=== PATIENT | male | born 1970 | race Caucasian/White ===

== ENCOUNTER 2017-10-10 00:05 | Emergency (ER) | payer MEDICAID ==
[2017-10-10 00:15] VITALS: RESP 16
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
[2017-10-10 01:31] VITALS: BP 148/80; PULSE 85; TEMP 98.3
== END 2017-10-10 01:30 | disposition home or self-care (01) ==
LOC: EC 00:05
DX: T16.2XXA Foreign body in left ear, initial encounter (principal); Z87.891 Personal history of nicotine dependence; Y93.55 Activity, bike riding
CPT/HCPCS: 69200; 99282

== ENCOUNTER 2017-10-25 03:11 | Inpatient (IN) | payer MEDICAID ==
[2017-10-25] MEDS ORDERED: NITROGLYCERIN SL TABS 0.4 MG TAB SUBLINGUAL PRN ×2 (03:14→04:47)
[2017-10-25] MEDS ORDERED: ATORVASTATIN 80 MG TAB PO STA (03:21)
[2017-10-25] MEDS ORDERED: MORPHINE SULFATE 2 MG/ML SYRINGE IVP STA (03:21)
[2017-10-25] MEDS ORDERED: HEPARIN SODIUM,PORCINE 5,000 UNIT/ML 1 ML VIAL IV PRN (03:26)
[2017-10-25] MEDS ORDERED: HEPARIN SODIUM,PORCINE 5,000 UNIT/ML 1 ML VIAL IV ONE (03:26)
[2017-10-25 03:30] LABS: Glucose,Whole Blood 121 mg/dL (75-99)
[2017-10-25 03:32] LABS: Basophils # (A) 0.1 k/uL (0-0.2); Basophils % (A) 1 %; Eosinophils # (A) 0.3 k/uL (0-0.7); Eosinophils % (A) 3 %; HCT 42.4 % (39.0-53.0); HGB 14.9 gm/dL (13.0-17.5); Lymphocytes # (A) 3.4 k/uL (1.0-4.8); Lymphocytes % (A) 29 %; MCH 32.2 pg (25.0-35.0); MCHC 35.1 g/dL (31.0-37.0); MCV 91.6 fL (80.0-100.0); Mean Platelet Volume 7.2; Monocytes # (A) 0.4 k/uL (0-1.0); Monocytes % (A) 4 %; Neutrophils # (A) 7.1 k/uL (1.3-7.7); Neutrophils % (A) 61 %; Platelet Count 273 k/uL (150-450); RBC 4.62 m/uL (4.30-5.90); RDW 14.1 % (11.5-15.5); WBC 11.5 k/uL (3.8-10.6)
--- NOTE | 2017-10-25 03:32 | ED ---
Chest Pain HPI - General Chief Complaint: Chest Pain Stated Complaint: stemi Time Seen by Provider: 10/25/17 03:14 Source: patient, family, EMS Mode of arrival: EMS Limitations: no limitations - History of Present Illness Initial Comments: This patient is a 47-year-old man brought by ambulance to be evaluated for chest pain. The patient was watching television between 12:30 and 1 AM today when he had onset of pain just left of the sternal area. Describes it as dull kind of aching or heavy. The pain is constant, moderate intensity now, but it was severe. The patient states that it did improve after receiving nitroglycerin from EMS. The patient has not noted other worsening or relieving factors. There has been some associated dyspnea. The patient did take a full size aspirin. The patient denies previous cardiac history. He did quit smoking approximately 2-3 months ago. MD Complaint: chest pain -: hour(s) (3) Onset: during rest Pain Location: left chest Pain Radiation: none Severity: moderate Quality: aching Consistency: constant Improves With: nitroglycerin Worsens With: nothing Anginal Symptoms: dyspnea Treatments Prior to Arrival: aspirin, nitroglycerin, oxygen - Related Data Previous Rx's Medication Instructions Recorded Ciprofloxacin Ophth Soln [Cipro 10 drops LEFT EAR BID #1 bottle 10/10/17 Ophth Soln] Allergies Allergy/AdvReac Type Severity Reaction Status Date / Time No Known Allergies Allergy Verified 10/10/17 01:03 Review of Systems ROS Statement: Those systems with pertinent positive or pertinent negative responses have been documented in the HPI. ROS Other: All systems not noted in ROS Statement are negative. Constitutional: Denies: fever, chills Respiratory: Reports: as per HPI, dyspnea. Denies: cough, wheezes Cardiovascular: Reports: chest pain. Denies: palpitations, orthopnea, edema, syncope Gastrointestinal: Reports: nausea. Denies: abdominal pain, vomiting, diarrhea, constipation Genitourinary: Denies: dysuria, hematuria Musculoskeletal: Denies: back pain Skin: Denies: rash Neurological: Denies: headache Hematological/Lymphatic: Denies: easy bleeding EKG Findings - EKG Comments: EKG Findings:: There are inferior ST elevations, consistent with an acute ST elevation MD. There are lateral ST depressions. ST depressions in lead V2. - EKG Results: EKG: interpreted by JEFF, sinus rhythm (Rate approximate 74 bpm), normal axis - MD, Pacemaker, Normal: Myocardial infarction: inferior MD (old age indeterminate) (There are inferior ST elevations, consistent with an acute ST elevation MD.) Past Medical History Past Medical History: No Reported History History of Any Multi-Drug Resistant Organisms: None Reported Past Surgical History: No Surgical Hx Reported Past Psychological History: No Psychological Hx Reported Smoking Status: Former smoker Past Alcohol Use History: None Reported Past Drug Use History: None Reported General Exam Limitations: no limitations General appearance: alert, in distress Head exam: Present: atraumatic, normocephalic Eye exam: Present: normal appearance. Absent: scleral icterus, conjunctival injection ENT exam: Present: normal oropharynx Neck exam: Present: normal inspection Respiratory exam: Present: normal lung sounds bilaterally. Absent: respiratory distress, wheezes, rales, rhonchi, stridor, chest wall tenderness Cardiovascular Exam: Present: regular rate, normal rhythm, normal heart sounds. Absent: systolic murmur, diastolic murmur, rubs, gallop GI/Abdominal exam: Present: soft. Absent: distended, tenderness, guarding, rebound, rigid, mass Extremities exam: Present: normal inspection, normal capillary refill. Absent: pedal edema, calf tenderness Back exam: Present: normal inspection. Absent: CVA tenderness (R), CVA tenderness (L) Neurological exam: Present: alert Skin exam: Present: warm, dry, intact, normal color. Absent: rash Course Vital Signs 10/25/17 10/25/17 10/25/17 03:14 03:19 03:33 Temperature 98.7 F Pulse Rate 74 73 74 Respiratory 18 18 18 Rate Blood Pressure 137/77 135/82 141/76 O2 Sat by Pulse 100 100 99 Oximetry 10/25/17 03:47 Temperature Pulse Rate 77 Respiratory 21 Rate Blood Pressure 141/78 O2 Sat by Pulse 98 Oximetry - Reevaluation(s) Reevaluation #1: 10/25/17 03:32 We did receive a telemetry ECG from EMS, and when they sent this, we did activate the [facility]. I discussed case with cardiology and they'll take patient to the [facility]. On arrival his EKG does confirm that there is a STEMI. History and physical exam performed. Orders entered. Critical Care Time Critical Care Time: Yes (35 minutes) Disposition Clinical Impression: ST elevation myocardial infarction (STEMI) Disposition: ADMITTED IP TO THIS HOSP Condition: Serious Is patient prescribed a controlled substance at d/c from ED?: No
--- NOTE | 2017-10-25 03:33 | XR ---
EXAMINATION TYPE: XR chest 1V portable DATE OF EXAM: 10/25/2017 COMPARISON: NONE HISTORY: Chest pain TECHNIQUE: Single frontal view of the chest is obtained. FINDINGS: Heart and mediastinum are normal. Lungs are clear. Diaphragm is normal. There are chest le ads. Bony thorax is intact. There are small calcified granulomata. IMPRESSION: No active cardiopulmonary disease. Normal heart.
[2017-10-25 03:35] LABS: Partial Thromboplastin Time 22.5 sec (22.0-30.0); Prothrombin Time 10.1 sec (9.0-12.0)
[2017-10-25 03:39] LABS: Anion Gap 14 mmol/L; Calcium 9.1 mg/dL (8.4-10.2); Carbon Dioxide 21 mmol/L (22-30); Chloride 105 mmol/L (98-107); Glucose 134 mg/dL (74-99); Sodium 140 mmol/L (137-145); Total Bilirubin 0.5 mg/dL (0.2-1.3); Total Protein 6.5 g/dL (6.3-8.2)
[2017-10-25] MEDS ORDERED: HEPARIN SODIUM 1,000 UN/ML (10ML VL) ONE (03:39)
[2017-10-25] MEDS ORDERED: IV FLUID CONTINUATION 200 ML IV ONE (03:40)
[2017-10-25 03:41] LABS: ALT 36 U/L (21-72); AST 27 U/L (17-59); Alkaline Phosphatase 67 U/L (38-126); Blood Urea Nitrogen 14 mg/dL (9-20); Potassium 4.2 mmol/L (3.5-5.1)
--- NOTE | 2017-10-25 03:41 | P.CRDCN ---
History of Present Illness Consult date: 10/25/17 History of present illness: This is a 47-year-old gentleman with history of smoking who was brought in by EMS to the emergency room with complaints of chest pain with some radiation to the back And also to the arms. His EKG showed evidence of acute inferior wall MA. Patient is having mild chest pain and the time of my evaluation. Patient is being taken to the cath for cardiac catheterization with the intention of primary intervention Review of Systems Not obtained Past Medical History Past Medical History: No Reported History History of Any Multi-Drug Resistant Organisms: None Reported Past Surgical History: No Surgical Hx Reported Past Psychological History: No Psychological Hx Reported Smoking Status: Former smoker Past Alcohol Use History: None Reported Past Drug Use History: None Reported Medications and Allergies Home Medications Medication Instructions Recorded Confirmed Type Ciprofloxacin Ophth Soln [Cipro 10 drops LEFT EAR BID #1 bottle 10/10/17 Rx Ophth Soln] Allergies Allergy/AdvReac Type Severity Reaction Status Date / Time No Known Allergies Allergy Verified 10/10/17 01:03 Physical Exam Vitals: Vital Signs Temp Pulse Resp BP Pulse Ox 10/25/17 03:33 74 18 141/76 99 10/25/17 03:19 73 18 135/82 100 10/25/17 03:14 98.7 F 74 18 137/77 100 Intake and Output 10/24/17 10/24/17 10/25/17 14:59 22:59 06:59 Other: Weight 67.132 kg GENERAL EXAM: Patient is alert and oriented and doesn't appear to be in any acute distress HEENT: Normocephalic. Normal reaction of pupils, equal size, normal range of extraocular motion. No erythema or exudates in the throat. NECK: No masses, no nuchal rigidity. CHEST: No chest wall deformity. LUNGS: Equal air entry with no crackles or wheeze. HEART: S1 and S2 normal with no audible mumurs or gallops. Regular rhythm, femorals equal on both sides.. ABDOMEN: No hepatosplenomegaly, normal bowel sounds, no guarding or rigidity. SKIN: No rashes CENTRAL NERVOUS SYSTEM: No focal deficits. EXTREMITIES: No cyanosis, clubbing or edema. Results Current Medications Generic Name Dose Route Start Last Admin Trade Name Freq PRN Reason Stop Dose Admin Heparin Sodium (Porcine) 0 unit 10/25/17 03:26 Heparin IV PER PROTOCOL PRN Low PTT Protocol Heparin Sodium/Sodium Chloride 500 mls @ 16.11 mls/hr 10/25/17 03:30 25,000 unit/ Sodium Chloride IV .Q24H ROSANGELA Protocol 12 UNITS/KG/HR Nitroglycerin 0.4 mg 10/25/17 03:14 Nitrostat SUBLINGUAL Q5M PRN Chest Pain Intake and Output 10/24/17 10/24/17 10/25/17 14:59 22:59 06:59 Other: Weight 67.132 kg Patient Weight 10/25/17 06:59 Weight 67.132 kg EKG Interpretations (text) Sinus rhythm with acute inferior wall MA Assessment and Plan (1) Acute MA, inferior wall Current Visit: Yes Status: Acute Code(s): I21.19 - STEMI INVOLVING OTH CORONARY ARTERY OF INFERIOR WALL SNOMED Code(s): 51227491 Plan: Proceed with cardiac catheterization with the intention of primary intervention
[2017-10-25 03:48] LABS: Creatine Kinase 112 U/L (55-170)
[2017-10-25] MEDS ORDERED: MIDAZOLAM 2 MG/2 ML VIAL ONE (03:49)
[2017-10-25] MEDS ORDERED: fentaNYL (PF) 50 MCG/ML 2 ML AMP ONE (03:49)
[2017-10-25] MEDS ORDERED: LIDOCAINE 2% SYG (PF) 100 MG/5 ML MISCELLANE ONE (03:52)
[2017-10-25] MEDS ORDERED: MIDAZOLAM 2 MG/2 ML VIAL IV ONE (03:53)
[2017-10-25] MEDS ORDERED: fentaNYL (PF) 50 MCG/ML 2 ML AMP IV ONE (03:53)
[2017-10-25 04:01] LABS: Creatine Kinase MB 0.9 ng/mL (0.0-2.4); Troponin I <0.012 ng/mL (0.000-0.034)
[2017-10-25] MEDS ORDERED: BIVALIRUDIN BOLUS 250 MG/50 ML IV ONE (04:07)
[2017-10-25] MEDS ORDERED: METOPROLOL TARTRATE 5 MG/5 ML VIAL IVP ONE ×2 (04:07→04:08)
[2017-10-25] MEDS ORDERED: BIVALIRUDIN 250 MG in SODIUM CHLORIDE 0.9% 40 ML IV ONE (04:08)
[2017-10-25] MEDS ORDERED: SODIUM CHLORIDE 0.9% 1,000 ML IV ONE (04:20)
[2017-10-25] MEDS: NITROGLYCERIN 1000MCG/10ML SYRINGE INTRACORON ONE ×2 (04:21→04:27)
--- NOTE | 2017-10-25 04:21 | P.PCN ---
Date of Procedure: 10/25/17 Preoperative Diagnosis: Acute inferior wall CO Postoperative Diagnosis: Total occlusion of the RCA, significant distal left main extending into the LAD and circumflex Procedure(s) Performed: Left heart catheterization without left ventriculography Description of Procedure: HISTORY: This is a 47-year-old gentleman with history of smoking who was admitted to the hospital with acute inferior wall myocardial infarction. Patient is advised to have a cardiac catheterization with the intention of primary intervention. CONSENT:I have discussed the risks, benefits and alternative therapies for the above-mentioned procedure and for both sedation/analgesia as well as necessary blood product administration, if indicated, as they pertain to this patient. The patient has indicated understanding and acceptance of the risks and procedures discussed. [] PROCEDURE: Patient was brought to the lab in a fasting state. Patient was given some IV sedation. The right groin is infiltrated with lidocaine and right femoral artery was entered using Seldinger technique. A 6-Czech catheter was left in place and selective coronary arteriography was performed. Patient tolerated the procedure well. Femoral angiogram was performed . Patient went on to have stent placement of the RCA by Dr. Rush No immediate complications were noted and patient was transferred to [facility] in a stable condition Conscious Sedation: Versed 1mg Fentanyl 25 g Duration 16minutes HEMODYNAMICS: The aortic pressure is about 150/90. Left ankle end-diastolic pressure is 12. There was no gradient across the aortic valve SELECTIVE CORONARY ARTERIOGRAPHY: LEFT MAIN: 60% distal left main THE LEFT ANTERIOR DESCENDING CORONARY ARTERY: This is a moderate caliber vessel with about 70% ostial stenosis. Rest of the LAD is free of occlusive disease. THE LEFT CIRCUMFLEX AND IS CORONARY ARTERY: Moderate caliber vessel with a 60% ostial stenosis THE RIGHT CORONARY ARTERY: Total occluded distally LEFT VENTRICULOGRAPHY: Not performed FINAL IMPRESSION: Total occlusion of the RCA. 60% left main with 70% ostial LAD and also 60% ostial circumflex PLAN: Stent placement of the RCA. Patient would require bypass surgery for left main disease PROGNOSIS: Guarded
[2017-10-25] MEDS ORDERED: DOPamine DRIP 800 MG in DEXTROSE/WATER 1 500ML.BAG IV ONE (04:23)
[2017-10-25] MEDS ORDERED: CLOPIDOGREL 75 MG TAB ONE (04:34)
[2017-10-25] MEDS ORDERED: IOPAMIDOL-370 125ML BTL INJ ONE ×2 (04:38)
[2017-10-25] MEDS ORDERED: CLOPIDOGREL 75 MG TAB PO ONE (04:39)
[2017-10-25] MEDS ORDERED: MAG HYDROX/AL HYDROX/SIMETH 30 ML CUP ONE (04:46)
[2017-10-25] MEDS ORDERED: ZOLPIDEM 5 MG TAB PO PRN (04:47)
[2017-10-25] MEDS ORDERED: RX INFO: IV CONTRAST WAS GIVEN 1 EACH MISC MISCELLANE PRN (04:47)
[2017-10-25] MEDS ORDERED: MAG HYDROX/AL HYDROX/SIMETH 30 ML CUP PO PRN (04:47)
[2017-10-25] MEDS ORDERED: ATROPINE SULFATE 0.1 MG/ML 10ML SYRINGE IV PRN (04:47)
[2017-10-25] MEDS ORDERED: MAG HYDROX/AL HYDROX/SIMETH 30 ML CUP PO ONE (04:49)
[2017-10-25] MEDS ORDERED: SODIUM CHLORIDE 0.9% 1,000 ML IV SCH (05:00)
[2017-10-25 05:07] LABS: Glucose,Whole Blood 110 mg/dL (75-99)
[2017-10-25 06:15] VITALS: BMI 25.5
--- NOTE | 2017-10-25 07:17 | PTCA ---
PERCUTANEOUSTRANS CORORONARY ANGIOGRAPHY DATE OF SERVICE: 10/25/2017 PERFORMING PHYSICIAN: Harjit Parker MD, air hole driller. PROCEDURE PERFORMED: Successful stenting of the distal RCA using 2.75 x 15 mm Vision bare metal stent with good angiographic results. INDICATION: This is a pleasant 47-year-old gentleman with a significant history of smoking, who was brought to the hospital by ambulance with acute inferior ST-elevation myocardial infarction. He underwent a heart catheterization by Dr. Henning and was found to have acute total occlusion of the distal RCA with intermediate to severe disease involving the distal left main coronary artery. Because of that, I chose to place a bare metal stent because the patient might need to have open heart surgery soon. APPROACH: Right common femoral artery. COMPLICATION: None. LEVEL OF SEDATION: Moderate with sedation length of 23 minutes. PROCEDURE DESCRIPTION: After diagnostic heart catheterization was performed by Dr. Henning and after reviewing the angiogram, we decided to pursue with an intervention on the RCA. Anticoagulation was initiated using Angiomax. Subsequently I took JR4 guide and the RCA was engaged. A whisper wire was used to wire the right coronary artery and cross the acute total occlusion. After that I did balloon angioplasty using 2.0 x 12 mm balloon before I deployed 2.75 x 15 mm Vision bare metal stent where the stent was positioned under fluoroscopy guidance and deployed under 10 atmospheres for 15 seconds. The procedure was completed without any complication. POSTPROCEDURE MANAGEMENT: 1. Dual antiplatelet therapy. 2. Risk factor modifications. 3. Follow up with the patient. MMODL / VIRGILN: [id number] /
[2017-10-25] MEDS: HEPARIN SODIUM,PORCINE/D5W PMX 25,000 UNIT in DEXTROSE/WATER 1 500ML.BAG IV SCH (08:10)
[2017-10-25 08:11] LABS: Cholesterol 251 mg/dL (<200); HDL Cholesterol 40 mg/dL (40-60); LDL Cholesterol,Calculated 173 mg/dL (0-99); Triglycerides 189 mg/dL (<150)
[2017-10-25] MEDS: ASPIRIN 325 MG TAB PO SCH (08:21)
--- NOTE | 2017-10-25 11:30 | ECHOF ---
Referral Reason:stemi MEASUREMENTS -------- HEIGHT: 165.1 cm WEIGHT: 67.1 kg BP: 142/78 IVSd: 1.0 cm (0.6 - 1.1) LVIDd: 3.8 cm (3.9 - 5.3) LVPWd: 1.1 cm (0.6 - 1.1) IVSs: 1.5 cm LVIDs: 2.9 cm LVPWs: 1.2 cm LAESV Index (A-L): 14.93 ml/m Ao Diam: 3.0 cm (2.0 - 3.7) AV Cusp: 1.7 cm (1.5 - 2.6) LA Diam: 3.6 cm (2.7 - 3.8) MV EXCURSION: 19.783 mm (> 18.000) MV EF SLOPE: 188 mm/s (70 - 150) EPSS: 1.7 cm MV E Ion: 0.94 m/s MV DecT: 212 ms MV A Ion: 0.79 m/s MV E/A Ratio: 1.19 RAP: 5.00 mmHg RVSP: 12.99 mmHg FINDINGS -------- Sinus rhythm. This was a technically good study. The left ventricular size is normal. Left ventricular wall thickness is normal. Overall left vent ricular systolic function is mild-moderately impaired with, an EF between 40 - 45 %. Basal inferior LV wall motion is hypokinetic. Mid inferior LV wall motion is hypokinetic. Mid inferoseptal LV wall motion is hypokinetic. The right ventricle is normal in size and function. The left atrium is normal in size. The right atrium is normal in size. Aortic valve is trileaflet and is mildly thickened. The mitral valve leaflets are mildly thickened. There is trace mitral regurgitation. Trace tricuspid regurgitation present. The right ventricular systolic pressure, as measured by Dopp ler, is 12.99mmHg. Pulmonic valve appears structurally normal. The aortic root size is normal. The pericardium is normal. CONCLUSIONS -------- 1. Sinus rhythm. 2. This was a technically good study. 3. The left ventricular size is normal. 4. Left ventricular wall thickness is normal. 5. Overall left ventricular systolic function is mild-moderately impaired with, an EF between 40 - 45 %. 6. Basal inferior LV wall motion is hypokinetic. 7. Mid inferior LV wall motion is hypokinetic. 8. Mid inferoseptal LV wall motion is hypokinetic. 9. The right ventricle is normal in size and function. 10. The left atrium is normal in size. 11. The right atrium is normal in size. 12. Aortic valve is trileaflet and is mildly thickened. 13. The mitral valve leaflets are mildly thickened. 14. There is trace mitral regurgitation. 15. Trace tricuspid regurgitation present. 16. The right ventricular systolic pressure, as measured by Doppler, is 12.99mmHg. 17. Pulmonic valve appears structurally normal. 18. The aortic root size is normal. 19. The pericardium is normal. CHUCK TENDER: Adelaida Ernst RDCS
[2017-10-25] MEDS: METOPROLOL TARTRATE 12.5 MG TAB PO SCH ×2 (11:49→20:19)
[2017-10-25] MEDS: PANTOPRAZOLE 40 MG TABLET PO SCH (11:49)
--- NOTE | 2017-10-25 11:49 | P.HPIM ---
History of Present Illness H&P Date: 10/25/17 Chief Complaint: Chest pain. 47-year-old man brought by ambulance to be evaluated for chest pain. The patient was watching television between 12:30 and 1 AM today when he had onset of pain in the retrosternal area. Pain radiated to both of his arms, jaw and back. Described it as dull aching or heavy. The pain was constant, was severe when it started. Pain was associated with dizziness, diaphoresis and nausea. No vomiting. No shortness of breath. Patient has been having intermittent episodes of chest pain over the last several months but he did not seek medical attention for that. He normally does not follow up with any primary care physician. When he gets some physical through his job his blood pressure has always been found to be high but he did not take any medication for that. When EMS arrived patient was given some nitroglycerin and the pain felt better afterwards. The patient denies previous cardiac history. He did quit smoking approximately 2-3 months ago. Review of Systems 12 point review of system performed, negative except for HPI Past Medical History Past Medical History: Hyperlipidemia, Hypertension Additional Past Medical History / Comment(s): 10/25/2017 STEMI with Stent to RCA x1, family history of early onset coronary artery disease with his aunt passing away from a myocardial infarction at age 30. History of Any Multi-Drug Resistant Organisms: None Reported Past Surgical History: No Surgical Hx Reported Past Anesthesia/Blood Transfusion Reactions: No Reported Reaction Additional Past Anesthesia/Blood Transfusion Reaction / Comment(s): Denies surgical procedures so unable to comment on this Past Psychological History: No Psychological Hx Reported Smoking Status: Former smoker (Quit smoking 2-3 months ago.) Past Alcohol Use History: None Reported (No alcohol use in the past 30 years.) Past Drug Use History: None Reported - Past Family History Father Family Medical History: Cancer, Hypertension Additional Family Medical History / Comment(s): Lung CA, at age 63. Mother Family Medical History: COPD Additional Family Medical History / Comment(s): Past away at age 70 from severe COPD. Sister(s) Family Medical History: Hypertension, Thyroid Disorder Medications and Allergies Home Medications Medication Instructions Recorded Confirmed Type No Known Home Medications [No 10/25/17 10/25/17 History Known Home Medications] Allergies Allergy/AdvReac Type Severity Reaction Status Date / Time No Known Allergies Allergy Verified 10/25/17 07:48 Physical Exam Vitals: Vital Signs Temp Pulse Resp BP Pulse Ox 10/25/17 11:00 78 21 135/78 98 10/25/17 10:55 80 13 124/86 98 10/25/17 10:50 71 7 L 145/90 97 10/25/17 10:45 84 11 L 159/97 97 10/25/17 10:40 71 17 133/81 98 10/25/17 10:35 70 21 143/83 97 10/25/17 10:30 71 10 L 142/80 97 10/25/17 10:25 81 10 L 140/85 99 10/25/17 10:20 78 11 L 133/73 98 10/25/17 10:15 76 15 127/79 98 10/25/17 10:10 82 27 H 155/80 98 10/25/17 10:05 87 15 139/77 97 10/25/17 10:00 83 16 127/77 99 10/25/17 09:55 78 20 124/85 97 10/25/17 09:50 82 16 136/88 97 10/25/17 09:45 88 16 136/88 99 10/25/17 09:40 89 18 136/88 98 10/25/17 09:35 75 12 136/88 98 10/25/17 09:30 81 20 136/88 98 10/25/17 09:25 97 32 H 136/88 98 10/25/17 09:20 92 19 136/77 98 10/25/17 09:00 83 14 136/77 98 10/25/17 08:49 98 10/25/17 08:30 73 14 119/80 98 10/25/17 08:00 98.4 F 90 21 116/80 98 10/25/17 07:45 70 15 121/86 100 10/25/17 07:30 88 19 110/72 99 10/25/17 07:15 75 13 112/74 98 10/25/17 07:00 71 7 L 105/67 97 10/25/17 06:45 81 10 L 116/73 100 10/25/17 06:30 86 18 133/84 99 10/25/17 06:15 90 14 134/81 99 10/25/17 06:00 84 10 L 146/74 100 10/25/17 05:45 80 15 131/76 99 10/25/17 05:30 84 20 117/78 100 10/25/17 05:20 76 18 98 10/25/17 05:10 98.2 F 68 18 105/68 100 10/25/17 03:47 77 21 141/78 98 10/25/17 03:33 74 18 141/76 99 10/25/17 03:19 73 18 135/82 100 10/25/17 03:14 98.7 F 74 18 137/77 100 Intake and Output 10/24/17 10/25/17 10/25/17 22:59 06:59 14:59 Intake Total 604 500 Output Total 850 Balance 604 -350 Intake: IV 604 500 Sodium Chloride 0.9% 1, 100 500 000 ml @ 100 mls/hr IV . [facility] Rx#:[id number] Output: Urine 850 Other: Weight 69.7 kg 69.7 kg ABP, PAP, CO, CI - Last 8 Hours Arterial Blood Pressure 157/80 Arterial Blood Pressure 162/83 Arterial Blood Pressure 178/90 Arterial Blood Pressure 155/85 Arterial Blood Pressure 158/86 Arterial Blood Pressure 153/86 Arterial Blood Pressure 141/73 Arterial Blood Pressure 136/67 Arterial Blood Pressure 123/66 Arterial Blood Pressure 137/70 Arterial Blood Pressure 142/78 Arterial Blood Pressure 149/81 Arterial Blood Pressure 144/78 Arterial Blood Pressure 149/78 Arterial Blood Pressure 142/78 Arterial Blood Pressure 147/77 Arterial Blood Pressure 131/73 Constitutional: No acute distress, conversant, pleasant Eyes:Anicteric sclerae, moist conjunctiva, no lid-lag, PERRLA, ENMT: Oropharynx clear, no erythema, exudates Neck: Supple, FROM, no masses, or JVD, No carotid bruits, No thyromegaly Lungs: Clear to auscultation, Clear to percussion, Normal respiratory effort, no accessory muscle use Cardiovascular: Heart regular in rate and rhythm, No murmurs, gallops, or rubs, No peripheral edema Abdominal: Soft, Nontender, no guarding, rebound or rigidity, Normoactive bowel sounds, No hepatomegaly, No splenomegaly, No palpable mass Skin: Normal temperature, tone, texture, turgor, no induration, No subcutaneous nodules, No rash, lesions, No ulcers Extremities: No digital cyanosis, No clubbing, Pedal pulses intact and symmetrical, Radial pulses intact and symmetrical, No calf tenderness Psychiatric: Alert and oriented to person, place and time, appropriate affect, intact judgement Neuro: Muscles Strength 5/5 in all 4 extremities, Sensation to light touch grossly present throughout, Cranial nerves II-XII grossly intact, no focal sensory deficits Results CBC & Chem 7: 18 03:15 10/25/17 03:15 Labs: Abnormal Lab Results - Last 24 Hours (Table) 10/25/17 10/25/17 10/25/17 Range/Units 03:15 03:15 03:15 WBC 11.5 H (3.8-10.6) k/uL Carbon Dioxide 21 L (22-30) mmol/L Glucose 134 H (74-99) mg/dL POC Glucose (mg/dL) (75-99) mg/dL Triglycerides 189 H (<150) mg/dL Cholesterol 251 H (<200) mg/dL LDL Cholesterol, Calc 173 H (0-99) mg/dL 10/25/17 10/25/17 Range/Units 03:19 05:05 WBC (3.8-10.6) k/uL Carbon Dioxide (22-30) mmol/L Glucose (74-99) mg/dL POC Glucose (mg/dL) 121 H 110 H (75-99) mg/dL Triglycerides (<150) mg/dL Cholesterol (<200) mg/dL LDL Cholesterol, Calc (0-99) mg/dL Thrombosis Risk Factor Assmnt - Choose All That Apply Any of the Below Risk Factors Present?: Yes Each Factor Represents 1 point: Acute ME Thrombosis Risk Factor Assessment Total Risk Factor Score: 1 Thrombosis Risk Factor Assessment Level: Low Risk Assessment and Plan Plan: Acute ST elevation myocardial infarction Status post heart catheterization, with stenting of the RCA. Tape Sewer recommending bypass surgery which is already scheduled in 4 weeks from now Start screening workup No further chest pain. Start aspirin, Plavix, metoprolol and statin Health maintenance No history of diabetes, we'll check A1c Lipid profile checked, LDL is elevated, statin started Nutrition consulted for low fat diet Monitor blood pressure on metoprolol, currently stable DVT prophylaxis Early mobilization, ambulatory, low risk Anticipated discharge: 2 days Disposition: Likely home
[2017-10-25 12:31] LABS: Magnesium 2.1 mg/dL (1.6-2.3)
--- NOTE | 2017-10-25 13:53 | US ---
EXAMINATION TYPE: US carotid duplex BILAT DATE OF EXAM: 10/25/2017 COMPARISON: NONE CLINICAL HISTORY: Preop cardiac surgery. EXAM MEASUREMENTS: RIGHT: Peak Systolic Velocity (PSV) cm/sec ----- Right CCA: 91.5 ----- Right ICA: 98.4 ----- Right ECA: 118.5 ICA/CCA ratio: 1.1 RIGHT: End Diastole cm/sec ----- Right CCA: 27.5 ----- Right ICA: 37.9 ----- Right ECA: 30.5 LEFT: Peak Systolic Velocity (PSV) cm/sec ----- Left CCA: 96.5 ----- Left ICA: 110.7 ----- Left ECA: 197.3 ICA/CCA ratio: 1.1 LEFT: End Diastole cm/sec ----- Left CCA: 31.1 ----- Left ICA: 44.5 ----- Left ECA: 53.2 VERTEBRALS (direction of flow): Right Vertebral: Antegrade Left Vertebral: Antegrade Rhythm: Normal Mild velocity increase in left ECA, no significant stenosis seen in bilateral ICA's. IMPRESSION: Moderate amount of grayscale atheromatous plaquing within the left carotid bulb without hemodynamically significant stenosis in the bilateral common carotid arteries, carotid bulbs or inter nal carotid arteries. Stenosis of the left external carotid artery is incidentally identified of appr oximately 50%.
[2017-10-25 14:20] LABS: Appearance,Urine Clear (Clear); Bilirubin,Urine Negative (Negative); Blood,Urine Negative (Negative); Color,Urine Light Yellow; Glucose,Urine (UA) Negative (Negative); Ketones,Urine Negative (Negative); Leukocyte Esterase,Urine Negative (Negative); Nitrite,Urine Negative (Negative); Protein,Urine Negative (Negative); Specific Gravity,Urine 1.013 (1.001-1.035); Urobilinogen,Urine <2.0 mg/dL (<2.0)
--- NOTE | 2017-10-25 14:44 | P.PN ---
Progress Note - Text Progress Note Date: 10/25/17 Report of pulmonary function test Pulmonary function tests show some minimal/mild obstruction. Based on numbers, the patient said no increased operative risk for anticipated bypass grafting in the near future.
--- NOTE | 2017-10-25 14:54 | P.CNPUL ---
History of Present Illness Consult date: 10/25/17 Requesting physician: Aidtya Brown Reason for consult: chest pain, other Chief complaint: Acute ST elevated [place] History of present illness: Mr. Cruz is a 47-year-old white male patient presented to the emergency department on 10/25/2017 at 03 11 per EMS complaints of acute substernal chest pain, heaviness in bilateral arms. The onset of symptoms was not brought on by exertion, he was watching television between 12:30 and 1:00 in the morning at the time his sternal discomfort started. He described it as aching, happy, and stinging. The pain was constant, moderate in intensity, and was exacerbated by laying down. Patient was administered nitroglycerin from EMS with some improvement. Patient was also dyspneic, and had heartburn. Patient does not have any previous cardiac history, does not follow with a primary care physician , does have history of nicotine dependence, he quit smoking to 3 months ago, but prior to that smoked 1-1-1/2 packs a day for 34 years. History of any chronic lung condition. He is not on any prescription medications. 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 EKG showed acute elevation ST segment in the inferior leads consistent with acute inferior wall AZ. Patient was taken to the poultry hatchery laborer, for primary intervention. He was found to have acute total occlusion of the distal RCA with intermediate to severe disease involving the distal left main coronary artery. Patient underwent successful stenting of the distal RCA, he was started on dual antiplatelet therapy in the form of Plavix and aspirin. Patient returned to the intensive care units for further monitoring. Cardiothoracic surgery was consulted to evaluate the patient for coronary artery bypass grafting in view of moderate to severe left main disease. Echocardiogram was completed impaired left ventricular systolic function with an EF between 40-45%, trace mitral and trace tricuspid regurgitation, no pulmonary hypertension, right ventricular systolic pressure is 12.9 mmHg. Was mild inferior, basal and mid inferior septal LV wall motion hypokinesis. Patient has been evaluated by cardiothoracic surgery, and and he will be scheduled for coronary artery bypass grafting in 4 weeks. Was seeing this patient in consultation for pulmonary preoperative clearance. Review of Systems All systems: negative Constitutional: Denies chills, Denies fever Eyes: denies blurred vision, denies pain Ears, nose, mouth and throat: Denies headache, Denies sore throat Cardiovascular: Reports chest pain, Denies shortness of breath Respiratory: Denies cough Gastrointestinal: Denies abdominal pain, Denies diarrhea, Denies nausea, Denies vomiting Musculoskeletal: Denies myalgias Integumentary: Denies pruritus, Denies rash Neurological: Denies numbness, Denies weakness Psychiatric: Denies anxiety, Denies depression Endocrine: Denies fatigue, Denies weight change Past Medical History Past Medical History: Hyperlipidemia, Hypertension Additional Past Medical History / Comment(s): 10/25/2017 STEMI with Stent to RCA x1, family history of early onset coronary artery disease with his aunt passing away from a myocardial infarction at age 30. History of Any Multi-Drug Resistant Organisms: None Reported Past Surgical History: No Surgical Hx Reported Past Anesthesia/Blood Transfusion Reactions: No Reported Reaction Additional Past Anesthesia/Blood Transfusion Reaction / Comment(s): Denies surgical procedures so unable to comment on this Past Psychological History: No Psychological Hx Reported Smoking Status: Former smoker (Quit smoking 2-3 months ago.) Past Alcohol Use History: None Reported (No alcohol use in the past 30 years.) Past Drug Use History: None Reported - Past Family History Father Family Medical History: Cancer, Hypertension Additional Family Medical History / Comment(s): Lung CA, at age 63. Mother Family Medical History: COPD Additional Family Medical History / Comment(s): Past away at age 70 from severe COPD. Sister(s) Family Medical History: Hypertension, Thyroid Disorder Medications and Allergies Home Medications Medication Instructions Recorded Confirmed Type No Known Home Medications [No 10/25/17 10/25/17 History Known Home Medications] Allergies Allergy/AdvReac Type Severity Reaction Status Date / Time No Known Allergies Allergy Verified 10/25/17 07:48 Physical Exam Vitals: Vital Signs Temp Pulse Resp BP Pulse Ox 10/25/17 14:00 70 14 118/66 97 10/25/17 13:30 70 18 118/70 96 10/25/17 13:00 97 22 128/82 97 10/25/17 12:30 72 18 130/87 97 10/25/17 12:00 77 15 129/87 98 10/25/17 11:30 72 11 L 121/79 98 10/25/17 11:00 78 21 135/78 98 10/25/17 10:55 80 13 124/86 98 10/25/17 10:50 71 7 L 145/90 97 10/25/17 10:45 84 11 L 159/97 97 10/25/17 10:40 71 17 133/81 98 10/25/17 10:35 70 21 143/83 97 10/25/17 10:30 71 10 L 142/80 97 10/25/17 10:25 81 10 L 140/85 99 10/25/17 10:20 78 11 L 133/73 98 10/25/17 10:15 76 15 127/79 98 10/25/17 10:10 82 27 H 155/80 98 10/25/17 10:05 87 15 139/77 97 10/25/17 10:00 83 16 127/77 99 10/25/17 09:55 78 20 124/85 97 10/25/17 09:50 82 16 136/88 97 10/25/17 09:45 88 16 136/88 99 10/25/17 09:40 89 18 136/88 98 10/25/17 09:35 75 12 136/88 98 10/25/17 09:30 81 20 136/88 98 10/25/17 09:25 97 32 H 136/88 98 10/25/17 09:20 92 19 136/77 98 10/25/17 09:00 83 14 136/77 98 10/25/17 08:49 98 10/25/17 08:30 73 14 119/80 98 10/25/17 08:00 98.4 F 90 21 116/80 98 10/25/17 07:45 70 15 121/86 100 10/25/17 07:30 88 19 110/72 99 10/25/17 07:15 75 13 112/74 98 10/25/17 07:00 71 7 L 105/67 97 10/25/17 06:45 81 10 L 116/73 100 10/25/17 06:30 86 18 133/84 99 10/25/17 06:15 90 14 134/81 99 10/25/17 06:00 84 10 L 146/74 100 10/25/17 05:45 80 15 131/76 99 10/25/17 05:30 84 20 117/78 100 10/25/17 05:20 76 18 98 10/25/17 05:10 98.2 F 68 18 105/68 100 10/25/17 03:47 77 21 141/78 98 10/25/17 03:33 74 18 141/76 99 10/25/17 03:19 73 18 135/82 100 10/25/17 03:14 98.7 F 74 18 137/77 100 Intake and Output 10/24/17 10/25/17 10/25/17 22:59 06:59 14:59 Intake Total 604 710 Output Total 1375 Balance 604 -665 Intake: IV 604 710 Sodium Chloride 0.9% 1, 100 710 000 ml @ 100 mls/hr IV . Q10H [facility] Rx#:[id number] Output: Urine 1375 Other: Weight 69.7 kg 69.7 kg ABP, PAP, CO, CI - Last 8 Hours Arterial Blood Pressure 157/80 Arterial Blood Pressure 162/83 Arterial Blood Pressure 178/90 Arterial Blood Pressure 155/85 Arterial Blood Pressure 158/86 Arterial Blood Pressure 153/86 Arterial Blood Pressure 141/73 Arterial Blood Pressure 136/67 Arterial Blood Pressure 123/66 Arterial Blood Pressure 137/70 Arterial Blood Pressure 142/78 GENERAL EXAM: Alert, pleasant, 47-year-old white male comfortable in no apparent distress. HEAD: Normocephalic/atraumatic. EYES: Normal reaction of pupils, equal size. Conjunctiva pink, sclera white. NOSE: Clear with pink turbinates. THROAT: No erythema or exudates. NECK: No masses, no JVD, no thyroid enlargement, no adenopathy. CHEST: No chest wall deformity. Symmetrical expansion. LUNGS: Equal air entry with no crackles, wheeze, rhonchi or dullness. CVS: Regular rate and rhythm, normal S1 and S2, no gallops, no murmurs, no rubs ABDOMEN: Soft, nontender. No hepatosplenomegaly, normal bowel sounds, no guarding or rigidity. EXTREMITIES: No clubbing, no edema, no cyanosis, 2+ pulses and upper and lower extremities. MUSCULOSKELETAL: Muscle strength and tone normal. SPINE: No scoliosis or deformity SKIN: No rashes CENTRAL NERVOUS SYSTEM: Alert and oriented -3. No focal deficits, tone is normal in all 4 extremities. PSYCHIATRIC: Alert and oriented -3. Appropriate affect. Intact judgment and insight. Results - Laboratory Findings CBC and BMP: 10/25/17 03:15 10/25/17 03:15 PT/INR, D-dimer PT 10.1 sec (9.0-12.0) 10/25/17 03:15 INR 1.0 (<1.2) 10/25/17 03:15 Abnormal lab findings: Abnormal Labs 10/25/17 10/25/17 10/25/17 03:15 03:15 03:15 WBC 11.5 H Carbon Dioxide 21 L Glucose 134 H POC Glucose (mg/dL) Triglycerides 189 H Cholesterol 251 H LDL Cholesterol, Calc 173 H 10/25/17 10/25/17 03:19 05:05 WBC Carbon Dioxide Glucose POC Glucose (mg/dL) 121 H 110 H Triglycerides Cholesterol LDL Cholesterol, Calc - Diagnostic Findings Chest x-ray: report reviewed, image reviewed Additional studies: Echocardiogram report reviewed Assessment and Plan Plan: Assessment: #1. Acute inferior wall ST elevated [place] related to critical right coronary artery stenosis, status post successful PTCA and stenting of the RCA #2. Coronary artery disease, involving the left main coronary artery and left circumflex. #3. Ischemic cardiomyopathy, with impaired left ventricular systolic function with an EF of 40-45% #4. Nicotine dependence, currently in remission, patient quit 3 months ago, but carries [id number] smoking history Plan: We'll obtain bedside spirometry PFT, we'll give the patient doesn't incentive spirometry. He denies any baseline shortness of breath, or any chronic lung conditions related to his smoking history. Chest x-ray has been reviewed, and shows no acute pulmonary process. We'll continue to monitor in the intensive care. We'll review the PFT results once those are available. I performed a history & physical examination of the patient and discussed their management with my nurse practitioner, Gely Leblanc. I reviewed the nurse practitioner's note and agree with the documented findings and plan of care. Lung sounds clear. The findings and the impression was discussed with the patient. I attest to the documentation by the nurse practitioner. Time with Patient: Greater than 30
[2017-10-25] MEDS ORDERED: ALPRAZolam 0.25 MG TAB PO PRN (15:02)
--- NOTE | 2017-10-25 15:04 | P.GSCN ---
<Johnnie Talley - Last Filed: 10/25/17 15:03> History of Present Illness Consult date: 10/25/17 Reason for Consult: STEMI, coronary artery disease with left main disease. Evaluation for myocardial revascularization surgery. Requesting physician: Jassi Henning History of present illness: This is a 47-year-old gentleman who does not follow with a primary care physician on a regular basis. Patient has a past medical history significant for hypertension, hyperlipidemia, history of nicotine dependence, quit smoking 2 -3 months ago and family history of early onset coronary artery disease with one of his aunts passing away at age 30 from a myocardial infarction. Patient presented to the emergency department here at [facility] via EMS with complaints of substernal chest pain radiating to his neck and both of his arms associated with some nausea. He denies any complaints of fever, chills , shortness of breath, vomiting, dizziness or syncope. He reports that he has been having episodes of chest pain with activity over the past year which has gone away with rest. A 12-lead EKG was completed which demonstrated inferior ST elevations, consistent with acute ST elevation myocardial infarction. Initial lab results showed a WBC count of 11.5, troponin of less than 0.012, triglycerides 189, cholesterol 251, LDL cholesterol 173, a BUN of 14 and creatinine of 1.11. Due to the patient's presenting symptoms, and ST elevation on his 12-lead EKG a consult was placed to Dr. Drake from cardiology. A consent was obtained and the patient was taken for cardiac catheterization which demonstrated a 60% stenosis to his left main coronary artery, a totally occluded right coronary artery, a 50-60% stenosis to a circumflex coronary artery, and a 70% stenosis to his proximal left anterior descending coronary artery. Due to the patient's acute total occlusion of the distal right coronary artery and left main coronary artery disease a vision bare metal stent was placed by Dr. Parker to the patient's right coronary artery. Subsequently, due to the patient's presenting symptoms, 12-lead EKG and cardiac catheterization results a consult was placed to Dr. Brown from cardiothoracic surgery to evaluate the patient for myocardial revascularization surgery. Review of Systems A 14 point review of systems was completed and was negative except as mentioned in HPI. Past Medical History Past Medical History: Hyperlipidemia, Hypertension Additional Past Medical History / Comment(s): 10/25/2017 STEMI with Stent to RCA x1, family history of early onset coronary artery disease with his aunt passing away from a myocardial infarction at age 30. History of Any Multi-Drug Resistant Organisms: None Reported Past Surgical History: No Surgical Hx Reported Past Anesthesia/Blood Transfusion Reactions: No Reported Reaction Additional Past Anesthesia/Blood Transfusion Reaction / Comm: Denies surgical procedures so unable to comment on this Past Psychological History: No Psychological Hx Reported Smoking Status: Former smoker (Quit smoking 2-3 months ago.) Past Alcohol Use History: None Reported (No alcohol use in the past 30 years.) Past Drug Use History: None Reported - Past Family History Father Family Medical History: Cancer, Hypertension Additional Family Medical History / Comment(s): Lung CA, at age 63. Mother Family Medical History: COPD Additional Family Medical History / Comment(s): Past away at age 70 from severe COPD. Sister(s) Family Medical History: Hypertension, Thyroid Disorder Medications and Allergies Home Medications Medication Instructions Recorded Confirmed Type Aspirin 81 mg PO DAILY #30 chew 10/27/17 Rx Atorvastatin [Lipitor] 80 mg PO HS #30 tab 10/27/17 Rx Carvedilol [Coreg] 3.125 mg PO BID-W/MEALS #60 tab 10/27/17 Rx Clopidogrel [Plavix] 75 mg PO DAILY #30 tab 10/27/17 Rx Losartan [Cozaar] 12.5 mg PO DAILY #30 tab 10/27/17 Rx Metoprolol Tartrate [Lopressor] 12.5 mg PO BID #60 tab 10/27/17 Rx Nitroglycerin Sl Tabs [Nitrostat] 0.4 mg SUBLINGUAL Q5M PRN #25 tab 10/27/17 Rx Spironolactone [Aldactone] 25 mg PO DAILY #30 tab 10/27/17 Rx Allergies Allergy/AdvReac Type Severity Reaction Status Date / Time No Known Allergies Allergy Verified 10/25/17 07:48 Surgical - Exam Vital Signs Temp Pulse Resp BP Pulse Ox 98.7 F 74 18 137/77 100 10/25/17 03:14 10/25/17 03:14 10/25/17 03:14 10/25/17 03:14 10/25/17 03:14 - General well developed, well nourished, no distress, no pain - Eyes PERRL, normal ocular movement - ENT normal pinna, normal nares, normal mucosa, no hearing loss, no congestion, poor longterm - Neck No lymphadenopathy, neck is supple. no masses, no bruits, trachea midline, no venous distension - Respiratory Lung sounds are essentially clear throughout. Respirations are symmetrical and nonlabored. Oxygen saturation are 99% on 2 L nasal cannula. - Cardiovascular Regular rhythm and rate. S1 and S2 present, negative for S3, gallop or murmur. Bedside telemetry showing normal sinus rhythm heart rate 79. No edema present. - Abdomen Abdomen is soft, nontender and nondistended. Active bowel sounds all 4 abdominal quadrants. No organomegaly, no guarding or rigidity. - Genitourinary Deferred - Rectum Deferred - Integumentary Multiple tattoos. Skin is warm and dry, no clubbing or cyanosis present. no rash, no growths, no abnormal pigmentation - Neurologic No focal deficits. normal coordination, normal sensation - Musculoskeletal normal gait, normal posture - Psychiatric oriented to time, oriented to person, oriented to place, speech is normal, memory intact Results - Labs 10/25/17 03:15 10/25/17 03:15 Abnormal Lab Results - Last 24 Hours (Table) 10/25/17 10/25/17 10/25/17 Range/Units 03:15 03:15 03:15 WBC 11.5 H (3.8-10.6) k/uL Carbon Dioxide 21 L (22-30) mmol/L Glucose 134 H (74-99) mg/dL POC Glucose (mg/dL) (75-99) mg/dL Triglycerides 189 H (<150) mg/dL Cholesterol 251 H (<200) mg/dL LDL Cholesterol, Calc 173 H (0-99) mg/dL 10/25/17 10/25/17 Range/Units 03:19 05:05 WBC (3.8-10.6) k/uL Carbon Dioxide (22-30) mmol/L Glucose (74-99) mg/dL POC Glucose (mg/dL) 121 H 110 H (75-99) mg/dL Triglycerides (<150) mg/dL Cholesterol (<200) mg/dL LDL Cholesterol, Calc (0-99) mg/dL Diabetes panel 10/25/17 10/25/17 Range/Units 03:15 03:15 Sodium 140 (137-145) mmol/L Potassium 4.2 (3.5-5.1) mmol/L Chloride 105 (98-107) mmol/L Carbon Dioxide 21 L (22-30) mmol/L BUN 14 (9-20) mg/dL Creatinine 1.11 (0.66-1.25) mg/dL Glucose 134 H (74-99) mg/dL Calcium 9.1 (8.4-10.2) mg/dL AST 27 (17-59) U/L ALT 36 (21-72) U/L Alkaline Phosphatase 67 (38-126) U/L Total Protein 6.5 (6.3-8.2) g/dL Albumin 4.0 (3.5-5.0) g/dL Triglycerides 189 H (<150) mg/dL HDL Cholesterol 40 (40-60) mg/dL Calcium panel 10/25/17 Range/Units 03:15 Calcium 9.1 (8.4-10.2) mg/dL Albumin 4.0 (3.5-5.0) g/dL Pituitary panel 10/25/17 Range/Units 03:15 Sodium 140 (137-145) mmol/L Potassium 4.2 (3.5-5.1) mmol/L Chloride 105 (98-107) mmol/L Carbon Dioxide 21 L (22-30) mmol/L BUN 14 (9-20) mg/dL Creatinine 1.11 (0.66-1.25) mg/dL Glucose 134 H (74-99) mg/dL Calcium 9.1 (8.4-10.2) mg/dL Adrenal panel 10/25/17 Range/Units 03:15 Sodium 140 (137-145) mmol/L Potassium 4.2 (3.5-5.1) mmol/L Chloride 105 (98-107) mmol/L Carbon Dioxide 21 L (22-30) mmol/L BUN 14 (9-20) mg/dL Creatinine 1.11 (0.66-1.25) mg/dL Glucose 134 H (74-99) mg/dL Calcium 9.1 (8.4-10.2) mg/dL Total Bilirubin 0.5 (0.2-1.3) mg/dL AST 27 (17-59) U/L ALT 36 (21-72) U/L Alkaline Phosphatase 67 (38-126) U/L Total Protein 6.5 (6.3-8.2) g/dL Albumin 4.0 (3.5-5.0) g/dL - Imaging Chest x-ray: report reviewed, image reviewed Additional studies: Heart catheterization results reviewed. Assessment and Plan (1) Hypertension Current Visit: Yes Status: Acute Code(s): I10 - ESSENTIAL (PRIMARY) HYPERTENSION SNOMED Code(s): 87703117 (2) Hyperlipidemia Current Visit: Yes Status: Acute Code(s): E78.5 - HYPERLIPIDEMIA, UNSPECIFIED SNOMED Code(s): 97098667 (3) Family history of coronary artery disease occurring prior to 55 years of age Current Visit: Yes Status: Acute Code(s): Z82.49 - FAMILY HX OF ISCHEM HEART DIS AND OTH DIS OF THE CIRC SYS SNOMED Code(s): 197187643 (4) Acute OH, inferior wall Current Visit: Yes Status: Acute Code(s): I21.19 - STEMI INVOLVING OTH CORONARY ARTERY OF INFERIOR WALL SNOMED Code(s): 16457749 (5) ST elevation myocardial infarction (STEMI) Current Visit: Yes Status: Acute Code(s): I21.3 - ST ELEVATION (STEMI) MYOCARDIAL INFARCTION OF [facility] SITE SNOMED Code(s): 104491356 Plan: The patient was seen and examined. His chart and diagnostics were reviewed. Preoperative testing was initiated. Preoperative teaching was initiated. This case was discussed with Dr. Brown from cardiothoracic surgery. We will add metoprolol 12.5 mg by mouth twice a day, continue his aspirin, statin, Plavix and heparin drip. Medical management per primary care service. GI and DVT prophylaxis. The patient will follow-up with Dr. Brown on an outpatient basis in 4 weeks on 11/24/2017 at 10 AM to discuss plans for myocardial revascularization. Thank you Dr. Henning for this consult and we look forward to working with you in the care of your patient. Time with Patient: Greater than 30 <Aditya Brown - Last Filed: 10/27/17 10:04> Surgical - Exam Vital Signs Temp Pulse Resp BP Pulse Ox 98.7 F 74 18 137/77 100 10/25/17 03:14 10/25/17 03:14 10/25/17 03:14 10/25/17 03:14 10/25/17 03:14 Results - Labs 10/27/17 05:39 10/26/17 05:01 Abnormal Lab Results - Last 24 Hours (Table) 10/27/17 Range/Units 05:39 WBC 11.1 H (3.8-10.6) k/uL Microbiology - Last 24 Hours (Table) 10/25/17 11:38 Nasal Screen MRSA/MSSA ([facility]) - Final Nasal Swab 10/25/17 12:30 Urine Culture - Final Urine,Voided Assessment and Plan Plan: The patient was seen and examined. The history and physical findings were verified. I agree with the above assessment and plan. The patient is a 47-year -old male, who normally does not follow up with a physician, who presented to the hospital with chest pain. He was noted to have a completely occluded right coronary artery which was opened and stented in the [facility]. He does have additional coronary disease which will need to be addressed. A bare-metal stent was placed. He is currently chest pain-free. We will allow him a chance to recover from this event. He is currently on blood thinners. He will follow- up with me in the office in 4 weeks' time to discuss plans for myocardial revascularization.
[2017-10-25 19:04] LABS: Hepatitis A Antibody IgM Non-Reactive (Non-Reactive); Hepatitis B Core IgM Non-Reactive (Non-Reactive)
[2017-10-25 19:50] LABS: Hemoglobin A1C 5.6 % (4.0-6.0)
[2017-10-25] MEDS: MUPIROCIN 2% OINT 22 GM TUBE NASAL SCH (20:18)
[2017-10-25] MEDS: ATORVASTATIN 80 MG TAB PO SCH (20:19)
[2017-10-26] MEDS: HEPARIN SODIUM,PORCINE/D5W PMX 25,000 UNIT in DEXTROSE/WATER 1 500ML.BAG IV SCH (05:02)
[2017-10-26 05:24] LABS: Basophils # (A) 0.1 k/uL (0-0.2); Basophils % (A) 0 %; Eosinophils # (A) 0.2 k/uL (0-0.7); Eosinophils % (A) 2 %; HCT 42.3 % (39.0-53.0); HGB 14.2 gm/dL (13.0-17.5); Lymphocytes # (A) 3.2 k/uL (1.0-4.8); Lymphocytes % (A) 30 %; MCH 30.8 pg (25.0-35.0); MCHC 33.5 g/dL (31.0-37.0); Mean Platelet Volume 7.8; Monocytes # (A) 0.5 k/uL (0-1.0); Monocytes % (A) 5 %; Neutrophils # (A) 6.6 k/uL (1.3-7.7); Neutrophils % (A) 61 %; Platelet Count 243 k/uL (150-450); RDW 13.3 % (11.5-15.5); WBC 10.7 k/uL (3.8-10.6)
[2017-10-26 05:38] LABS: Potassium 4.8 mmol/L (3.5-5.1)
[2017-10-26] MEDS: ASPIRIN 325 MG TAB PO SCH (08:36)
[2017-10-26] MEDS: PANTOPRAZOLE 40 MG TABLET PO SCH (08:36)
[2017-10-26] MEDS: CLOPIDOGREL 75 MG TAB PO SCH (08:36)
[2017-10-26] MEDS: MUPIROCIN 2% OINT 22 GM TUBE NASAL SCH ×2 (08:37→20:02)
--- NOTE | 2017-10-26 08:42 | P.PN ---
Subjective Progress Note Date: 10/26/17 Principal diagnosis: STEMI, coronary artery disease with left main disease. Previous medical history of hypertension, hyperlipidemia, previous tobacco dependence, family history of early onset coronary artery disease with an and PSA week at 30 years old from myocardial infarction. POD #1 left heart catheterization with placement of bare metal stent to the right coronary artery. Patient's currently sitting up in bed in no acute distress. Denies chest pain, shortness of breath. He is slightly anxious regarding surgical plans for the future. He has been ambulating in the hallway. No other complaints. Objective - Vital Signs Vital signs: Vital Signs Temp 98.6 F 10/26/17 08:00 Pulse 64 10/26/17 08:00 Resp 21 10/26/17 08:00 BP 113/66 10/26/17 08:00 Pulse Ox 95 10/26/17 08:00 Intake & Output 10/25/17 10/26/17 10/26/17 18:59 06:59 18:59 Intake Total 750 760 20 Output Total 1375 825 Balance -625 -65 20 Weight 69.7 kg 68.1 kg Intake: IV 750 120 20 Sodium Chloride 0.9% 1, 750 120 20 000 ml @ 100 mls/hr IV . Q10H [facility] Rx#:[id number] Oral 640 Output: Urine 1375 825 ABP, PAP, CO, CI - Last Documented Arterial Blood Pressure 157/80 - Constitutional General appearance: Present: cooperative, no acute distress - Respiratory Details: Lungs sounds clear bilaterally. Respirations even, nonlabored. Currently on room air with saturation 98%. - Cardiovascular Details: S1, S2 present. Regular rate and rhythm, sinus rhythm on telemetry. Palpable peripheral pulses bilaterally. No edema present. No calf pain or tenderness noted. - Gastrointestinal Gastrointestinal Comment(s): Abdomen soft, nontender, nondistended. Active bowel sounds 4 quadrants. Tolerating diet. - Genitourinary Genitourinary Comment(s): Continues to void clear, yellow urine. - Integumentary Integumentary Comment(s): Skin is warm and dry with evidence of good perfusion. - Neurologic Neurologic: Present: CNII-XII intact - Musculoskeletal Musculoskeletal: Present: gait normal, strength equal bilaterally - Psychiatric Psychiatric: Present: A&O x's 3, appropriate affect, intact judgment & insight - Allied health notes Allied health notes reviewed: nursing - Labs CBC & Chem 7: 10/26/17 05:01 10/26/17 05:01 Labs: Abnormal Lab Results - Last 24 Hours (Table) 10/26/17 Range/Units 05:01 WBC 10.7 H (3.8-10.6) k/uL Microbiology - Last 24 Hours (Table) 10/25/17 12:30 Urine Culture - Preliminary Urine,Voided 10/25/17 11:38 Nasal Screen MRSA/MSSA ([facility]O) - Preliminary Nasal Swab - Imaging and Cardiology Chest x-ray: report reviewed, image reviewed Echocardiogram results, carotid Dopplers reviewed. Assessment and Plan (1) Tobacco dependence in remission Current Visit: No Status: Resolved Code(s): F17.201 - NICOTINE DEPENDENCE, UNSPECIFIED, IN REMISSION SNOMED Code(s): 782258831 (2) Family history of coronary artery disease occurring prior to 55 years of age Current Visit: Yes Status: Chronic Code(s): Z82.49 - FAMILY HX OF ISCHEM HEART DIS AND OTH DIS OF THE CIRC SYS SNOMED Code(s): 014146554 (3) Hyperlipidemia Current Visit: Yes Status: Chronic Code(s): E78.5 - HYPERLIPIDEMIA, UNSPECIFIED SNOMED Code(s): 49599626 (4) Hypertension Current Visit: Yes Status: Chronic Code(s): I10 - ESSENTIAL (PRIMARY) HYPERTENSION SNOMED Code(s): 68869259 (5) ST elevation myocardial infarction (STEMI) Current Visit: Yes Status: Acute Code(s): I21.3 - ST ELEVATION (STEMI) MYOCARDIAL INFARCTION OF [facility] SITE SNOMED Code(s): 845729052 Plan: 1. Continue aspirin, statin, Plavix, heparin subcu, beta rj. 2. Encourage incentive spirometry use. 3. Encourage continued smoking cessation. 4. Increase activity, ambulate in hallway. 5. 5 m walk test completed. 6. Preoperative teaching reinforced. All questions answered. 7. Medical management per primary care service. 8. Follow-up appointment with Dr. Brown was made for 11/24/2017 at 10 AM to discuss plans for surgical revascularization. 9. May be discharged home from our standpoint when okay with other consultants. Time with Patient: Greater than 30
--- NOTE | 2017-10-26 10:15 | P.PN ---
Subjective Progress Note Date: 10/26/17 Principal diagnosis: Acute inferior wall ST elevated IA dated to total occlusion of right coronary artery. Critical left main stenosis, and patient is scheduled for coronary artery bypass grafting in 4 weeks Mr. Cruz is a 47-year-old white male patient presented to the emergency department on 10/25/2017 at 03 11 per EMS complaints of acute substernal chest pain, heaviness in bilateral arms. The onset of symptoms was not brought on by exertion, he was watching television between 12:30 and 1:00 in the morning at the time his sternal discomfort started. He described it as aching, and stinging. The pain was constant, moderate in intensity, and was exacerbated by laying down. Patient was administered nitroglycerin from EMS with some improvement. Patient was also dyspneic, and had heartburn. Patient does not have any previous cardiac history, does not follow with a primary care physician , does have history of nicotine dependence, he quit smoking to 3 months ago, but prior to that smoked 1-1-1/2 packs a day for 34 years. History of any chronic lung condition. He is not on any prescription medications. 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 EKG showed acute elevation ST segment in the inferior leads consistent with acute inferior wall IA. Patient was taken to the [facility], for primary intervention. He was found to have acute total occlusion of the distal RCA with intermediate to severe disease involving the distal left main coronary artery. Patient underwent successful stenting of the distal RCA, he was started on dual antiplatelet therapy in the form of Plavix and aspirin. Patient returned to the intensive care units for further monitoring. Cardiothoracic surgery was consulted to evaluate the patient for coronary artery bypass grafting in view of moderate to severe left main disease. Echocardiogram was completed impaired left ventricular systolic function with an EF between 40-45%, trace mitral and trace tricuspid regurgitation, no pulmonary hypertension, right ventricular systolic pressure is 12.9 mmHg. Was mild inferior, basal and mid inferior septal LV wall motion hypokinesis. Patient has been evaluated by cardiothoracic surgery, and and he will be scheduled for coronary artery bypass grafting in 4 weeks. Was seeing this patient in consultation for pulmonary preoperative clearance. On 10/26/2017 patient seen again in the intensive care unit. He is awake, alert , has been ambulating, tolerating activity well, with no recurrence of chest pain. Denies any dyspnea, room air pulse ox 96%. Patient remains afebrile, hemodynamically stable. Yesterday we saw the patient in preop clearance for the upcoming coronary artery bypass grafting surgery in 4 weeks. Patient's PFTs were reviewed, and showed minimal obstruction. Clinically patient is doing well, without any acute complaints, remains in sinus rhythm. Today's labs were reviewed, and are essentially normal. Objective - Vital Signs Vital signs: Vital Signs Temp 98.6 F 10/26/17 08:00 Pulse 54 L 10/26/17 09:00 Resp 13 10/26/17 09:00 BP 97/55 10/26/17 09:00 Pulse Ox 96 10/26/17 09:00 Intake & Output 10/25/17 10/26/17 10/26/17 18:59 06:59 18:59 Intake Total 750 760 270 Output Total 1375 825 Balance -625 -65 270 Weight 69.7 kg 68.1 kg Intake: IV 750 120 20 Sodium Chloride 0.9% 1, 750 120 20 000 ml @ 100 mls/hr IV . Q10H [facility] Rx#:[id number] Oral 640 250 Output: Urine 1375 825 ABP, PAP, CO, CI - Last Documented Arterial Blood Pressure 157/80 - Exam GENERAL EXAM: Alert, pleasant, 47-year-old white male comfortable in no apparent distress. HEAD: Normocephalic/atraumatic. EYES: Normal reaction of pupils, equal size. Conjunctiva pink, sclera white. NOSE: Clear with pink turbinates. THROAT: No erythema or exudates. NECK: No masses, no JVD, no thyroid enlargement, no adenopathy. CHEST: No chest wall deformity. Symmetrical expansion. LUNGS: Equal air entry with no crackles, wheeze, rhonchi or dullness. CVS: Regular rate and rhythm, normal S1 and S2, no gallops, no murmurs, no rubs ABDOMEN: Soft, nontender. No hepatosplenomegaly, normal bowel sounds, no guarding or rigidity. EXTREMITIES: No clubbing, no edema, no cyanosis, 2+ pulses and upper and lower extremities. MUSCULOSKELETAL: Muscle strength and tone normal. SPINE: No scoliosis or deformity SKIN: No rashes CENTRAL NERVOUS SYSTEM: Alert and oriented -3. No focal deficits, tone is normal in all 4 extremities. PSYCHIATRIC: Alert and oriented -3. Appropriate affect. Intact judgment and insight. - Labs CBC & Chem 7: 10/26/17 05:01 10/26/17 05:01 Labs: Abnormal Lab Results - Last 24 Hours (Table) 10/26/17 Range/Units 05:01 WBC 10.7 H (3.8-10.6) k/uL Microbiology - Last 24 Hours (Table) 10/25/17 12:30 Urine Culture - Preliminary Urine,Voided 10/25/17 11:38 Nasal Screen MRSA/MSSA ([facility]) - Preliminary Nasal Swab Assessment and Plan Plan: Assessment: #1. Acute inferior wall ST elevated IA related to critical right coronary artery stenosis, status post successful PTCA and stenting of the RCA #2. Coronary artery disease, involving the left main coronary artery and left circumflex. #3. Ischemic cardiomyopathy, with impaired left ventricular systolic function with an EF of 40-45% #4. Nicotine dependence, currently in remission, patient quit 3 months ago, but carries [id number] smoking history Plan: Vital signs are stable, patient denies any chest pain or dyspnea, tolerating ambulation. PFTs were reviewed, and showed minimal obstruction. From pulmonary standpoint, based on patient's history, physical exam, and spirometry results, patient is a low surgical risk for the upcoming coronary artery bypass grafting surgery. I performed a history & physical examination of the patient and discussed their management with my nurse practitioner, Gely Leblanc. I reviewed the nurse practitioner's note and agree with the documented findings and plan of care. Lung sounds clear. The findings and the impression was discussed with the patient. I attest to the documentation by the nurse practitioner. Time with Patient: Greater than 30
--- NOTE | 2017-10-26 10:55 | P.PN ---
Subjective Progress Note Date: 10/26/17 Principal diagnosis: Chest pain No chest pain or shortness of breath. Objective - Vital Signs Vital signs: Vital Signs Temp 98.6 F 10/26/17 08:00 Pulse 54 L 10/26/17 09:00 Resp 13 10/26/17 09:00 BP 97/55 10/26/17 09:00 Pulse Ox 96 10/26/17 09:00 Intake & Output 10/25/17 10/26/17 10/26/17 18:59 06:59 18:59 Intake Total 750 760 270 Output Total 1375 825 Balance -625 -65 270 Weight 69.7 kg 68.1 kg Intake: IV 750 120 20 Sodium Chloride 0.9% 1, 750 120 20 000 ml @ 100 mls/hr IV . Q10H [facility] Rx#:[id number] Oral 640 250 Output: Urine 1375 825 ABP, PAP, CO, CI - Last Documented Arterial Blood Pressure 157/80 - Exam Constitutional: No acute distress, conversant, pleasant Eyes:Anicteric sclerae, moist conjunctiva, no lid-lag, PERRLA, ENMT: Oropharynx clear, no erythema, exudates Neck: Supple, FROM, no masses, or JVD, No carotid bruits, No thyromegaly Lungs: Clear to auscultation, Clear to percussion, Normal respiratory effort, no accessory muscle use Cardiovascular: Heart regular in rate and rhythm, No murmurs, gallops, or rubs, No peripheral edema Abdominal: Soft, Nontender, no guarding, rebound or rigidity, Normoactive bowel sounds, No hepatomegaly, No splenomegaly, No palpable mass Skin: Normal temperature, tone, texture, turgor, no induration, No subcutaneous nodules, No rash, lesions, No ulcers Extremities: No digital cyanosis, No clubbing, Pedal pulses intact and symmetrical, Radial pulses intact and symmetrical, No calf tenderness Psychiatric: Alert and oriented to person, place and time, appropriate affect, intact judgement Neuro: Muscles Strength 5/5 in all 4 extremities, Sensation to light touch grossly present throughout, Cranial nerves II-XII grossly intact, no focal sensory deficits - Labs CBC & Chem 7: 10/26/17 05:01 10/26/17 05:01 Labs: Abnormal Lab Results - Last 24 Hours (Table) 06/14/18 Range/Units 05:01 WBC 10.7 H (3.8-10.6) k/uL Microbiology - Last 24 Hours (Table) 10/25/17 12:30 Urine Culture - Preliminary Urine,Voided 10/25/17 11:38 Nasal Screen MRSA/MSSA ([facility]) - Preliminary Nasal Swab Assessment and Plan Plan: Acute ST elevation myocardial infarction Status post heart catheterization, with stenting of the RCA. Professional Bass Fisher recommending bypass surgery which is already scheduled in 4 weeks from now Screening workup started No further chest pain. Start aspirin, Plavix, metoprolol and statin Health maintenance No diabetes, A1c WNL Lipid profile checked, LDL is elevated, statin started Nutrition consulted for low fat diet Monitor blood pressure on metoprolol, currently stable DVT prophylaxis Early mobilization, ambulatory, low risk Anticipated discharge: 1 day Disposition: Likely home
[2017-10-26] MEDS: METOPROLOL TARTRATE 12.5 MG TAB PO SCH ×2 (13:00→20:02)
--- NOTE | 2017-10-26 15:51 | PN ---
PROGRESS NOTE Mr. Cruz is doing well post stenting of the RCA. He also has known moderate coronary artery disease in the left main and the LAD. He is doing well from a cardiac standpoint. He denies any chest discomfort, dizziness, lightheadedness, palpitations. His vitals are stable. He is sitting comfortably in bed in the ICU. His heart rates are in the 50s and 60s. Occasionally drops to about 45 per minute, blood pressure 123/71 mmHg. Head and neck examination is normal. Heart sounds are normal. Lungs are clear to auscultation. There are no cardiac murmurs. No gallops. No rub. His current medications include: Aspirin, atorvastatin, Plavix, metoprolol 12.5 mg twice daily. PLAN: He may go to the [facility] today and continue his current medications. I would monitor him for at least another 24 hours before discharge. This was discussed with the patient. GARRISON / VIRGILN: [id number] /
[2017-10-26] MEDS: ATORVASTATIN 80 MG TAB PO SCH (20:02)
[2017-10-26 23:41] VITALS: RESP 16
[2017-10-27] MEDS: PANTOPRAZOLE 40 MG TABLET PO SCH (06:33)
[2017-10-27 06:41] LABS: Basophils # (A) 0.1 k/uL (0-0.2); Basophils % (A) 1 %; Eosinophils # (A) 0.3 k/uL (0-0.7); Eosinophils % (A) 2 %; HCT 42.7 % (39.0-53.0); HGB 14.6 gm/dL (13.0-17.5); Lymphocytes # (A) 3.2 k/uL (1.0-4.8); Lymphocytes % (A) 29 %; MCH 31.5 pg (25.0-35.0); MCHC 34.2 g/dL (31.0-37.0); MCV 92.1 fL (80.0-100.0); Mean Platelet Volume 7.7; Monocytes # (A) 0.6 k/uL (0-1.0); Monocytes % (A) 5 %; Neutrophils # (A) 6.8 k/uL (1.3-7.7); Neutrophils % (A) 61 %; Platelet Count 210 k/uL (150-450); RBC 4.64 m/uL (4.30-5.90); RDW 14.1 % (11.5-15.5); WBC 11.1 k/uL (3.8-10.6)
--- NOTE | 2017-10-27 07:16 | P.PN ---
Subjective Progress Note Date: 10/27/17 Principal diagnosis: STEMI, coronary artery disease with left main disease. Previous medical history of hypertension, hyperlipidemia, previous tobacco dependence, family history of early onset coronary artery disease with an and PSA week at 30 years old from myocardial infarction. POD #2 left heart catheterization with placement of bare metal stent to the right coronary artery. Patient's currently sitting up in bed in no acute distress. Denies chest pain, shortness of breath. He was transferred out of ICU to [address] [place] [address] yesterday, has been ambulating in the hallway. Plans for discharge to home today. No new complaints. Objective - Vital Signs Vital signs: Vital Signs Temp 97.4 F L 10/27/17 04:00 Pulse 62 10/27/17 04:00 Resp 16 10/27/17 04:00 BP 119/77 10/27/17 04:00 Pulse Ox 97 10/27/17 04:00 Intake & Output 10/26/17 10/27/17 10/27/17 18:59 06:59 18:59 Intake Total 757 Output Total 1050 Balance -293 Weight 68.2 kg Intake: IV 20 Sodium Chloride 0.9% 1, 20 000 ml @ 100 mls/hr IV . Q10H ROSANGELA Rx#:[id number] Oral 737 Output: Urine 1050 Other: Voiding Method Urinal # Voids 2 ABP, PAP, CO, CI - Last Documented Arterial Blood Pressure 157/80 - Constitutional General appearance: Present: cooperative, no acute distress - Respiratory Details: Lungs sounds clear bilaterally. Respirations even, nonlabored. Currently on room air with saturation 97%. Able to achieve 2500 mL on his incentive spirometry. - Cardiovascular Details: S1, S2 present. Regular rate and rhythm, sinus rhythm on telemetry. Palpable peripheral pulses bilaterally. No edema present. No calf pain or tenderness noted. - Gastrointestinal Gastrointestinal Comment(s): Abdomen soft, nontender, nondistended. Active bowel sounds 4 quadrants. Tolerating diet. - Genitourinary Genitourinary Comment(s): Continues to void clear, yellow urine. - Integumentary Integumentary Comment(s): Skin is warm and dry with evidence of good perfusion. - Neurologic Neurologic: Present: CNII-XII intact - Musculoskeletal Musculoskeletal: Present: gait normal, strength equal bilaterally - Psychiatric Psychiatric: Present: A&O x's 3, appropriate affect, intact judgment & insight - Allied health notes Allied health notes reviewed: nursing - Labs CBC & Chem 7: 10/27/17 05:39 10/26/17 05:01 Labs: Abnormal Lab Results - Last 24 Hours (Table) 10/27/17 Range/Units 05:39 WBC 11.1 H (3.8-10.6) k/uL Microbiology - Last 24 Hours (Table) 10/25/17 11:38 Nasal Screen MRSA/MSSA (GILBERTO) - Final Nasal Swab 10/25/17 12:30 Urine Culture - Final Urine,Voided Assessment and Plan (1) Tobacco dependence in remission Current Visit: No Status: Resolved Code(s): F17.201 - NICOTINE DEPENDENCE, UNSPECIFIED, IN REMISSION SNOMED Code(s): 404092576 (2) Family history of coronary artery disease occurring prior to 55 years of age Current Visit: Yes Status: Chronic Code(s): Z82.49 - FAMILY HX OF ISCHEM HEART DIS AND OTH DIS OF THE CIRC SYS SNOMED Code(s): 159292739 (3) Hyperlipidemia Current Visit: Yes Status: Chronic Code(s): E78.5 - HYPERLIPIDEMIA, UNSPECIFIED SNOMED Code(s): 04057659 (4) Hypertension Current Visit: Yes Status: Chronic Code(s): I10 - ESSENTIAL (PRIMARY) HYPERTENSION SNOMED Code(s): 88520964 (5) ST elevation myocardial infarction (STEMI) Current Visit: Yes Status: Acute Code(s): I21.3 - ST ELEVATION (STEMI) MYOCARDIAL INFARCTION OF [facility] SITE SNOMED Code(s): 681210460 Plan: 1. Continue aspirin, statin, Plavix, heparin subcu, beta rj. 2. Encourage incentive spirometry use. 3. Encourage continued smoking cessation. 4. Increase activity, ambulate in hallway. 5. Preoperative teaching reinforced. All questions answered. 6. Medical management per primary care service. 7. Follow-up appointment with Dr. Brown was made for 11/24/2017 at 10 AM to discuss plans for surgical revascularization. 8. May be discharged home from our standpoint when okay with other consultants. Time with Patient: Greater than 30
[2017-10-27] MEDS: METOPROLOL TARTRATE 12.5 MG TAB PO SCH (07:49)
[2017-10-27] MEDS: ASPIRIN 325 MG TAB PO SCH (07:50)
[2017-10-27] MEDS: MUPIROCIN 2% OINT 22 GM TUBE NASAL SCH (07:50)
[2017-10-27] MEDS: CLOPIDOGREL 75 MG TAB PO SCH (07:50)
[2017-10-27 07:57] VITALS: BP 120/71; PULSE 67; TEMP 97.6
[2017-10-27] MEDS ORDERED: LOSARTAN 25 MG TAB PO SCH (09:15)
[2017-10-27] MEDS ORDERED: CARVEDILOL 3.125 MG TAB PO SCH (09:15)
--- NOTE | 2017-10-27 09:43 | PN ---
PROGRESS NOTE Mr. Cruz is a 47-year-old male patient who came in with an inferior wall ST- elevation OK and underwent coronary stenting. He is doing well. He is afebrile, 97.6 degrees Fahrenheit, pulse rate is now in the 60s, respirations are normal. He is sitting comfortably in bed. He is ambulating in the hallways. Blood pressure is 120/71 mmHg. Head and neck examination is normal. No JVD, thyromegaly or carotid bruits. Heart sounds S1, S2 are normal. No murmurs or gallop. No rub. Extremities are warm, no edema. IMPRESSION: 1. Acute ST-elevation inferior wall myocardial infarction, status post coronary stenting. 2. Mild ischemic cardiomyopathy, ejection fraction of about 45%. 3. The patient is stable today. PLAN: His blood pressure has improved. His heart rate has improved. I will switch him to carvedilol 3.125 mg twice daily, add a low-dose angiotensin receptor rj 12.5 mg p.o. daily of losartan and spironolactone 25 mg p.o. daily. In addition, aspirin and Plavix should continue, aspirin 81 mg, Plavix 75 mg, and continue high dose statins. He should see Dr. Henning next week on Monday. He has not had any arrhythmias other than occasional PVCs. He should be able to go home today if he remains stable. He seems to be stable at this point and has done well. MMODL / IJN: [id number] /
--- NOTE | 2017-10-27 10:59 | P.DS ---
Providers Date of admission: 10/25/17 03:44 Expected date of discharge: 10/27/17 Attending physician: Sam Mccarthy MD Consults: 10/25/17 03:14 Consult Physician Stat Consulting Provider: Tonya Lara Consult Reason/Comments: STEMI ACTIVATION COMPLETE Do you want consulting provider notified?: Yes 10/25/17 04:47 Consult Physician Routine Consulting Provider: Cardiology Jane Consult Reason/Comments: Post Interventional patient Do you want consulting provider notified?: Already Contacted Placement Type Exists?: Yes 10/25/17 08:04 Consult Physician Urgent Consulting Provider: Aditya Brown Consult Reason/Comments: post-stemi with further disease Do you want consulting provider notified?: Already Contacted 10/25/17 10:22 Consult Physician Routine Consulting Provider: Duke Manley Consult Reason/Comments: Pulmonary Management Do you want consulting provider notified?: Yes Primary care physician: Stated None Hospital Course: 47-year-old man brought by ambulance to be evaluated for chest pain. The patient was watching television between 12:30 and 1 AM today when he had onset of pain in the retrosternal area. Pain radiated to both of his arms, jaw and back. Described it as dull aching or heavy. The pain was constant, was severe when it started. Pain was associated with dizziness, diaphoresis and nausea. No vomiting. No shortness of breath. Patient has been having intermittent episodes of chest pain over the last several months but he did not seek medical attention for that. He normally does not follow up with any primary care physician. When he gets some physical through his job his blood pressure has always been found to be high but he did not take any medication for that. When EMS arrived patient was given some nitroglycerin and the pain felt better afterwards. The patient denies previous cardiac history. He did quit smoking approximately 2-3 months ago. In the emergency department he underwent extensive evaluation, he was found to have ST elevation in the inferior leads with reciprocal depression in the septal leads. He was immediately taken to the optical laboratory mechanic where he was found to have moderate to severe three-vessel disease including the left main, left circumflex and LAD. The right coronary artery was totally occluded and he had a stent put in there. The form setter metal road forms recommended bypass surgery, cardiothoracic surgery was consulted and the preoperative workup was started on the patient was in the hospital. He underwent carotid Doppler which showed atherosclerotic plaque within the left carotid bulb but no significant stenosis in the bilateral internal carotid arteries. Echocardiogram showed slightly reduced EF 40-45%. His cholesterol panel revealed elevated LDL, he was started on statin high dose. He was also screened for diabetes, A1c came back within normal limits. In addition he was started on aspirin, Plavix as well as metoprolol and lisinopril. Today patient was cleared by cardiology for discharge. He will be discharged home in stable condition. Discharge diagnoses: Acute ST elevation inferior myocardial infarction Essential hypertension Hyperlipidemia Ischemic congestive heart failure, systolic without acute exacerbation Patient Condition at Discharge: Serious Plan - Discharge Summary Discharge Rx Participant: Yes New Discharge Prescriptions: New Aspirin 81 mg PO DAILY #30 chew Atorvastatin [Lipitor] 80 mg PO HS #30 tab Carvedilol [Coreg] 3.125 mg PO BID-W/MEALS #60 tab Clopidogrel [Plavix] 75 mg PO DAILY #30 tab Losartan [Cozaar] 12.5 mg PO DAILY #30 tab Metoprolol Tartrate [Lopressor] 12.5 mg PO BID #60 tab Nitroglycerin Sl Tabs [Nitrostat] 0.4 mg SUBLINGUAL Q5M PRN #25 tab PRN Reason: Chest Pain Spironolactone [Aldactone] 25 mg PO DAILY #30 tab Discharge Medication List Aspirin 81 mg PO DAILY #30 chew 10/27/17 [Rx] Atorvastatin [Lipitor] 80 mg PO HS #30 tab 10/27/17 [Rx] Carvedilol [Coreg] 3.125 mg PO BID-W/MEALS #60 tab 10/27/17 [Rx] Clopidogrel [Plavix] 75 mg PO DAILY #30 tab 10/27/17 [Rx] Losartan [Cozaar] 12.5 mg PO DAILY #30 tab 10/27/17 [Rx] Metoprolol Tartrate [Lopressor] 12.5 mg PO BID #60 tab 10/27/17 [Rx] Nitroglycerin Sl Tabs [Nitrostat] 0.4 mg SUBLINGUAL Q5M PRN #25 tab 10/27/17 [Rx ] Spironolactone [Aldactone] 25 mg PO DAILY #30 tab 10/27/17 [Rx] Follow up Appointment(s)/Referral(s): None,Stated [Primary Care Provider] - 1-2 days Aditya Brown MD [STAFF PHYSICIAN] - 11/24/17 10:00 am Jassi Henning MD [STAFF PHYSICIAN] - 10/30/17
--- NOTE | 2017-10-27 11:35 | P.PN ---
Subjective Progress Note Date: 10/27/17 Principal diagnosis: Acute inferior wall ST elevated [place] dated to total occlusion of right coronary artery. Critical left main stenosis, and patient is scheduled for coronary artery bypass grafting in 4 weeks Mr. Cruz is a 47-year-old white male patient presented to the emergency department on 10/25/2017 at 03 11 per EMS complaints of acute substernal chest pain, heaviness in bilateral arms. The onset of symptoms was not brought on by exertion, he was watching television between 12:30 and 1:00 in the morning at the time his sternal discomfort started. He described it as aching, and stinging. The pain was constant, moderate in intensity, and was exacerbated by laying down. Patient was administered nitroglycerin from EMS with some improvement. Patient was also dyspneic, and had heartburn. Patient does not have any previous cardiac history, does not follow with a primary care physician , does have history of nicotine dependence, he quit smoking to 3 months ago, but prior to that smoked 1-1-1/2 packs a day for 34 years. History of any chronic lung condition. He is not on any prescription medications. 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 EKG showed acute elevation ST segment in the inferior leads consistent with acute inferior wall OH. Patient was taken to the geoscience laboratory technician, for primary intervention. He was found to have acute total occlusion of the distal RCA with intermediate to severe disease involving the distal left main coronary artery. Patient underwent successful stenting of the distal RCA, he was started on dual antiplatelet therapy in the form of Plavix and aspirin. Patient returned to the intensive care units for further monitoring. Cardiothoracic surgery was consulted to evaluate the patient for coronary artery bypass grafting in view of moderate to severe left main disease. Echocardiogram was completed impaired left ventricular systolic function with an EF between 40-45%, trace mitral and trace tricuspid regurgitation, no pulmonary hypertension, right ventricular systolic pressure is 12.9 mmHg. Was mild inferior, basal and mid inferior septal LV wall motion hypokinesis. Patient has been evaluated by cardiothoracic surgery, and and he will be scheduled for coronary artery bypass grafting in 4 weeks. Was seeing this patient in consultation for pulmonary preoperative clearance. On 10/26/2017 patient seen again in the intensive care unit. He is awake, alert , has been ambulating, tolerating activity well, with no recurrence of chest pain. Denies any dyspnea, room air pulse ox 96%. Patient remains afebrile, hemodynamically stable. Yesterday we saw the patient in preop clearance for the upcoming coronary artery bypass grafting surgery in 4 weeks. Patient's PFTs were reviewed, and showed minimal obstruction. Clinically patient is doing well, without any acute complaints, remains in sinus rhythm. Today's labs were reviewed, and are essentially normal. On 10/27/2017 patient seen again on [facility] care unit today. Denies any chest pain, denies any dyspnea. Vital signs have been stable, room air pulse ox is 99%. Patient has been ambulating, tolerating it well, has been cleared for discharge by cardiology, the patient will return for coronary artery bypass grafting in 4 weeks. Patient remains in sinus rhythm, no arrhythmias, no acute events overnight. Patient is stable for discharge from pulmonary standpoint, his been cleared for his upcoming surgery. Objective - Vital Signs Vital signs: Vital Signs Temp 97.6 F 10/27/17 07:52 Pulse 67 10/27/17 07:52 Resp 16 10/27/17 07:52 BP 120/71 10/27/17 07:52 Pulse Ox 99 10/27/17 07:52 Intake & Output 10/26/17 10/27/17 10/27/17 18:59 06:59 18:59 Intake Total 757 360 Output Total 1050 Balance -293 360 Weight 68.2 kg Intake: IV 20 Sodium Chloride 0.9% 1, 20 000 ml @ 100 mls/hr IV . Q10H ROSANGELA Rx#:[id number] Oral 737 360 Output: Urine 1050 Other: Voiding Method Urinal Urinal # Voids 2 ABP, PAP, CO, CI - Last Documented Arterial Blood Pressure 157/80 - Exam GENERAL EXAM: Alert, pleasant, 47-year-old white male comfortable in no apparent distress. HEAD: Normocephalic/atraumatic. EYES: Normal reaction of pupils, equal size. Conjunctiva pink, sclera white. NOSE: Clear with pink turbinates. THROAT: No erythema or exudates. NECK: No masses, no JVD, no thyroid enlargement, no adenopathy. CHEST: No chest wall deformity. Symmetrical expansion. LUNGS: Equal air entry with no crackles, wheeze, rhonchi or dullness. CVS: Regular rate and rhythm, normal S1 and S2, no gallops, no murmurs, no rubs ABDOMEN: Soft, nontender. No hepatosplenomegaly, normal bowel sounds, no guarding or rigidity. EXTREMITIES: No clubbing, no edema, no cyanosis, 2+ pulses and upper and lower extremities. MUSCULOSKELETAL: Muscle strength and tone normal. SPINE: No scoliosis or deformity SKIN: No rashes CENTRAL NERVOUS SYSTEM: Alert and oriented -3. No focal deficits, tone is normal in all 4 extremities. PSYCHIATRIC: Alert and oriented -3. Appropriate affect. Intact judgment and insight. - Labs CBC & Chem 7: 10/27/17 05:39 10/26/17 05:01 Labs: Abnormal Lab Results - Last 24 Hours (Table) 10/27/17 Range/Units 05:39 WBC 11.1 H (3.8-10.6) k/uL Microbiology - Last 24 Hours (Table) 10/25/17 11:38 Nasal Screen MRSA/MSSA (GILBERTO) - Final Nasal Swab 10/25/17 12:30 Urine Culture - Final Urine,Voided Assessment and Plan Plan: Assessment: #1. Acute inferior wall ST elevated OH related to critical right coronary artery stenosis, status post successful PTCA and stenting of the RCA #2. Coronary artery disease, involving the left main coronary artery and left circumflex. #3. Ischemic cardiomyopathy, with impaired left ventricular systolic function with an EF of 40-45% #4. Nicotine dependence, currently in remission, patient quit 3 months ago, but carries [id number] smoking history Plan: Patient remains stable, no chest pain, no dyspnea, left stable, no arrhythmias, she has been cleared for discharge by cardiology. Patient has been given pulmonary clearance for his upcoming coronary artery bypass grafting. He stable for discharge from pulmonary standpoint. I performed a history & physical examination of the patient and discussed their management with my nurse practitioner, Gely Leblanc. I reviewed the nurse practitioner's note and agree with the documented findings and plan of care. Lung sounds clear. The findings and the impression was discussed with the patient. I attest to the documentation by the nurse practitioner. Time with Patient: Less than 30
[2017-10-28] MEDS ORDERED: ASPIRIN 81 MG PO SCH (09:00)
[2017-10-28] MEDS ORDERED: SPIRONOLACTONE 25 MG TAB PO SCH (09:00)
--- NOTE | 2017-11-01 09:28 | P.VSCSTY ---
Greater Saphenous Vein Mapping This is bilateral lower extremity greater saphenous vein mapping. Date of service 10/25/2017 Vein quality and ultrasound appearance North obvious wall changes or thrombus. Vein size groin right 5.7 x 5.2 groin left 6.0 x 5.9 High thigh right 4.9 x 4.8 high thigh left 5.1 x 4.1 Mid thigh right 4.8 x 4.3 mid thigh left 5.2 x 4.1 Above-knee right 5.9 x 4.3 above-knee left 5.5 x 4.4 Below knee right 5.4 x 4.2 below-knee left 4.9 x 4.0 Mid calf right 3.7 x 2.9 mid calf left 5.3 x 3.8 Ankle right 4.1 x 3.4 ankle left 3.8 x 3.2 Impression usable bilateral greater saphenous vein.
--- NOTE | 2017-11-01 09:29 | P.ARTDOP ---
Arterial Doppler LOWER EXTREMITY ARTERIAL DOPPLER: DATE OF SERVICE: 10/26/2017 Reason for study: Preop CABG. Doppler waveforms: Multiphasic bilaterally throughout. Pulse volume recording: []. Pressure gradients: None. Ankle-brachial indices: Greater than 1 bilaterally. Toe pressures: [] on the right, [] on the left Impression: Normal study.
--- NOTE | 2017-11-01 09:32 | P.ARTDOP ---
Arterial Doppler Bilateral radial artery studies: Date of study 10/25/2017 Reason for studies: Preop CABG On Doppler review we find no significant right to left or segmental pressure gradients. On digital plethysmography with radial artery compression we find no significant pressure changes. Imaging reveals the right radial to vary between 2.5 x 2.3 and 3.0 x 2.9 mm. The left is between 2.8 x 2.3 and 3.0 x 2.8 mm Impression: Both radial arteries are usable by criteria
== END 2017-10-27 12:05 | disposition home or self-care (01) | DRG 249 ==
LOC: EC 03:11 → 6ICU 03:44 → 6SEL 10-26 19:54
PROVIDERS: ADMIT Family Medicine; ATTEND Family Medicine
PROC: B211YZZ Fluoroscopy of Multiple Coronary Arteries using Other Contrast (ICD-10-PCS; 2017-10-25)
PROC: 02703DZ Dilation of Coronary Artery, One Artery with Intraluminal Device, Percutaneous Approach (ICD-10-PCS; principal; 2017-10-25 03:37)
PROC: 4A023N7 Measurement of Cardiac Sampling and Pressure, Left Heart, Percutaneous Approach (ICD-10-PCS; 2017-10-25 03:37)
DX: I21.19 ST elevation (STEMI) myocardial infarction involving other coronary artery of inferior wall (principal); I50.22 Chronic systolic (congestive) heart failure; I11.0 Hypertensive heart disease with heart failure; I25.10 Atherosclerotic heart disease of native coronary artery without angina pectoris; I25.5 Ischemic cardiomyopathy; E78.5 Hyperlipidemia, unspecified; F17.201 Nicotine dependence, unspecified, in remission; Z82.49 Family history of ischemic heart disease and other diseases of the circulatory system; Z80.1 Family history of malignant neoplasm of trachea, bronchus and lung; Z82.5 Family history of asthma and other chronic lower respiratory diseases
CPT/HCPCS: 36415; 71045; 80048; 80053; 80061; 80074; 81003; 82550; 82553; 83036; 83735; 83880; 84443; 84484; 85025; 85610; 85730; 87070; 87086; 92941; 93005; 93306; 93458; 93880; 93922; 93923; 93930; 93970; 94150; 96374; 96375; 99291

== ENCOUNTER → 2017-12-05 | Outpatient (CLI) | payer MEDICAID ==
--- NOTE | 2017-12-05 17:05 | XR ---
EXAMINATION TYPE: XR chest 2V DATE OF EXAM: 12/05/2017 COMPARISON: 10/25/2017 HISTORY: Preop TECHNIQUE: Frontal and lateral views of the chest are obtained. FINDINGS: Heart and mediastinum are normal. Lungs are clear of infiltrate. There are calcified granu lomata in both lungs. There is no pleural effusion. Bony thorax is intact. IMPRESSION: No active cardiopulmonary disease. No change.
[2017-12-05 17:30] LABS: Appearance,Urine Clear (Clear); Bilirubin,Urine Negative (Negative); Blood,Urine Negative (Negative); Color,Urine Yellow; Glucose,Urine (UA) Negative (Negative); Ketones,Urine Negative (Negative); Leukocyte Esterase,Urine Negative (Negative); Nitrite,Urine Negative (Negative); Protein,Urine Negative (Negative); Specific Gravity,Urine 1.014 (1.001-1.035); Urobilinogen,Urine <2.0 mg/dL (<2.0)
[2017-12-05 17:38] LABS: Basophils # (A) 0.1 k/uL (0-0.2); Basophils % (A) 1 %; Eosinophils # (A) 0.3 k/uL (0-0.7); Eosinophils % (A) 4 %; HCT 47.4 % (39.0-53.0); HGB 15.8 gm/dL (13.0-17.5); Lymphocytes # (A) 1.9 k/uL (1.0-4.8); Lymphocytes % (A) 26 %; MCH 29.7 pg (25.0-35.0); MCHC 33.3 g/dL (31.0-37.0); MCV 89.2 fL (80.0-100.0); Mean Platelet Volume 7.4; Monocytes # (A) 0.4 k/uL (0-1.0); Monocytes % (A) 5 %; Neutrophils # (A) 4.5 k/uL (1.3-7.7); Neutrophils % (A) 62 %; Platelet Count 292 k/uL (150-450); RBC 5.31 m/uL (4.30-5.90); RDW 12.7 % (11.5-15.5); WBC 7.3 k/uL (3.8-10.6)
[2017-12-05 17:39] LABS: INR 1.1 (<1.2); Partial Thromboplastin Time 23.3 sec (22.0-30.0); Prothrombin Time 10.4 sec (9.0-12.0)
[2017-12-05 17:50] LABS: ALT 53 U/L (21-72); AST 30 U/L (17-59); Albumin 4.4 g/dL (3.5-5.0); Alkaline Phosphatase 107 U/L (38-126); Anion Gap 10 mmol/L; Blood Urea Nitrogen 11 mg/dL (9-20); Calcium 9.6 mg/dL (8.4-10.2); Carbon Dioxide 26 mmol/L (22-30); Chloride 104 mmol/L (98-107); Glucose 92 mg/dL (74-99); Potassium 4.5 mmol/L (3.5-5.1); Sodium 140 mmol/L (137-145); Total Bilirubin 0.5 mg/dL (0.2-1.3); Total Protein 7.3 g/dL (6.3-8.2)
== END | disposition home or self-care (01) ==
LOC: LABPAT 16:00
PROVIDERS: ATTEND Surgery
DX: Z01.818 Encounter for other preprocedural examination (principal); Z01.812 Encounter for preprocedural laboratory examination
CPT/HCPCS: 36415; 71046; 80053; 81003; 85025; 85610; 85730; 86850; 86900; 86901; 86920; 87070; 87086

== ENCOUNTER 2017-12-12 05:32 | Inpatient (IN) | payer MEDICAID ==
[~2017-12-12 05:32] MED LIST: ALBUMIN HUMAN 25% 50 ML IV ONE; ALBUMIN HUMAN 5% 500 ML IVPB ONE; ASPIRIN 325 MG TAB PO ONE; ATORVASTATIN 10 MG TAB PO ONE; CALCIUM CHLORIDE 100 MG/ML 10 ML SYRINGE IV ONE; CHLORHEXIDINE GLUCONATE 15 ML CUP MUCOUS MEM ONE; CLEVIDIPINE BUTYRATE 25 MG in EMPTY BAG 1 BAG IV ONE; DEXTROSE 5% IN WATER 1,000 ML with POTASSIUM CHLORIDE 110 MEQ, MAGNESIUM SULFATE 16 MEQ... IV ONE; DEXTROSE 5% IN WATER 1,000 ML with POTASSIUM CHLORIDE 25 MEQ, SODIUM CHLORIDE 2.5MEQ/ML... IRRIGATION ONE; HEPARIN SODIUM 1,000 UN/ML (10ML VL) IV ONE; HEPARIN SODIUM,PORCINE 5,000 UNIT in SODIUM CHLORIDE 0.9% 500 ML IV ONE; INSULIN REGULAR 100 UNIT in SODIUM CHLORIDE 0.9% 100 ML IV ONE; MAGNESIUM SULFATE MG 500 MG/ML VIAL IV ONE; MANNITOL 25% 12.5 GM/50 ML VIAL IV ONE; METOPROLOL TARTRATE 12.5 MG TAB PO ONE; NITROGLYCERIN-D5W PMX 25 MG/250 ML BTL IV ONE; NITROGLYCERIN-D5W PMX 50 MG in DEXTROSE/WATER 1 250ML.BAG IV ONE; NOREPINEPHRIN 4 MG-0.9% NS PMX 4 MG/250 ML ML IV ONE; PAPAVERINE 360 MG in SODIUM CHLORIDE 0.9% 90 ML IV ONE; PHENYLEPHRINE 40 MG in SODIUM CHLORIDE 0.9% 250 ML IV ONE; PHENYLEPHRINE-0.9% NACL SYG 1 MG/10 ML SYRINGE IV ONE; PROPOFOL 1,000 MG/100 ML VIAL IV ONE; PROTAMINE SULFATE 10 MG/ML 25 ML VIAL IV ONE; PROTAMINE SULFATE 250 MG in EMPTY BAG 1 BAG IV ONE; SODIUM BICARB 8.4% 50 ML SYR (1 MEQ/ML) IV ONE; SODIUM CHLORIDE 0.9% 1,000 ML IV ONE; TRANEXAMIC ACID 2,000 MG in SODIUM CHLORIDE 0.9% 180 ML IV ONE; ceFAZolin 2,000 MG in SODIUM CHLORIDE 0.9% 30 ML IVPB ONE
[2017-12-12] MEDS ORDERED: LACTATED RINGERS 1,000 ML IV SCH (05:41)
[2017-12-12] MEDS ORDERED: MIDAZOLAM 2 MG/2 ML VIAL IV PRN (05:41)
[2017-12-12] MEDS ORDERED: MIDAZOLAM 2 MG/2 ML VIAL ONE (08:33)
[2017-12-12] MEDS ORDERED: fentaNYL (PF) 50 MCG/ML 2 ML AMP ONE (08:33)
[2017-12-12] MEDS ORDERED: TRANEXAMIC ACID 1,000 MG/10 ML VIAL ONE (08:33)
[2017-12-12] MEDS ORDERED: LIDOCAINE 2% SYG (PF) 100 MG/5 ML ONE (08:33)
[2017-12-12] MEDS ORDERED: GLYCOPYRROLATE 0.2 MG/ML 2 ML VIAL ONE (08:33)
[2017-12-12] MEDS ORDERED: MAGNESIUM SULFATE 4 MEQ/ML 2 ML VIAL ONE (08:33)
[2017-12-12] MEDS ORDERED: PROPOFOL 10 MG/ML 20 ML VIAL IV ONE ×2 (08:33)
[2017-12-12] MEDS ORDERED: PHENYLEPHRINE-0.9% NACL SYG 1 MG/10 ML SYRINGE ONE (08:33)
[2017-12-12] MEDS ORDERED: SODIUM CHLORIDE 0.9% 250 ML BAG ONE (08:33)
[2017-12-12] MEDS ORDERED: AMIODARONE 50 MG/ML 3 ML VIAL IV ONE (08:33)
[2017-12-12] MEDS ORDERED: SODIUM CHLORIDE 0.9% IRRIG 1,000 ML BTL IRRIGATION ONE (08:33)
[2017-12-12] MEDS ORDERED: ELECTROLYTE-R (PH 7.4) 1,000 ML IV.SOLN IV ONE (08:33)
[2017-12-12] MEDS ORDERED: VECURONIUM 10 MG VIAL IV ONE (08:33)
[2017-12-12] MEDS ORDERED: fentaNYL (PF) 50 MCG/ML 50 ML VIAL ONE (08:33)
[2017-12-12] MEDS ORDERED: HEPARIN SODIUM,PORCINE 10,000 UNIT/ML 1 ML VIAL ONE (08:33)
[2017-12-12 09:11] LABS: ABG Base Excess -0.7 mmol/L; ABG HCO3 23 mmol/L (21-25); ABG PCO2 36 mmHg (35-45); ABG PH 7.43 (7.35-7.45); ABG PO2 389 mmHg (83-108); ABG Potassium Whole Blood 4.1 mmol/L (3.4-4.5); ABG Sodium Whole Blood 140 mmol/L (135-146); ABG TCO2 24 mmol/L (19-24)
[2017-12-12] MEDS: ceFAZolin 1,000 MG in SODIUM CHLORIDE 0.9% IRRIGATIO 1,000 ML IRRIGATION ONE ×2 (10:11→13:58)
[2017-12-12 10:37] LABS: ABG Base Excess -2.9 mmol/L; ABG HCO3 26 mmol/L (21-25); ABG Oxygen Saturation 99.3 % (94-97); ABG PCO2 61 mmHg (35-45); ABG PH 7.23 (7.35-7.45); ABG PO2 229 mmHg (83-108); ABG Potassium Whole Blood 4.7 mmol/L (3.4-4.5); ABG Sodium Whole Blood 140 mmol/L (135-146); ABG TCO2 28 mmol/L (19-24)
[2017-12-12 11:39] LABS: ABG Base Excess -1.9 mmol/L; ABG HCO3 23 mmol/L (21-25); ABG PCO2 39 mmHg (35-45); ABG PH 7.38 (7.35-7.45); ABG PO2 281 mmHg (83-108); ABG Sodium Whole Blood 129 mmol/L (135-146); ABG TCO2 24 mmol/L (19-24)
[2017-12-12 12:10] LABS: ABG Base Excess -3.8 mmol/L; ABG HCO3 22 mmol/L (21-25); ABG Oxygen Saturation 99.5 % (94-97); ABG PCO2 45 mmHg (35-45); ABG PO2 197 mmHg (83-108); ABG Potassium Whole Blood 5.6 mmol/L (3.4-4.5); ABG Sodium Whole Blood 135 mmol/L (135-146); ABG TCO2 24 mmol/L (19-24)
[2017-12-12 12:46] LABS: ABG Base Excess -2.8 mmol/L; ABG HCO3 22 mmol/L (21-25); ABG PCO2 38 mmHg (35-45); ABG PH 7.38 (7.35-7.45); ABG PO2 397 mmHg (83-108); ABG Potassium Whole Blood 4.6 mmol/L (3.4-4.5); ABG Sodium Whole Blood 138 mmol/L (135-146); ABG TCO2 23 mmol/L (19-24)
[2017-12-12 13:16] LABS: ABG Base Excess -3.7 mmol/L; ABG HCO3 22 mmol/L (21-25); ABG Oxygen Saturation 99.9 % (94-97); ABG PCO2 43 mmHg (35-45); ABG PH 7.32 (7.35-7.45); ABG PO2 290 mmHg (83-108); ABG Potassium Whole Blood 4.4 mmol/L (3.4-4.5); ABG Sodium Whole Blood 137 mmol/L (135-146); ABG TCO2 24 mmol/L (19-24)
[2017-12-12 14:06] LABS: ABG Base Excess -2.2 mmol/L; ABG HCO3 23 mmol/L (21-25); ABG Oxygen Saturation 94.1 % (94-97); ABG PCO2 42 mmHg (35-45); ABG PH 7.35 (7.35-7.45); ABG PO2 70 mmHg (83-108); ABG Potassium Whole Blood 3.6 mmol/L (3.4-4.5); ABG Sodium Whole Blood 141 mmol/L (135-146); ABG TCO2 25 mmol/L (19-24)
[2017-12-12] MEDS ORDERED: PROPOFOL 1,000 MG in EMPTY BAG 1 BAG IV SCH (14:29)
[2017-12-12] MEDS ORDERED: Phosphorus Replacement Protoco 1 EACH MISC MISCELLANE PRN (14:29)
[2017-12-12] MEDS ORDERED: CALCIUM CHLORIDE 1,000 MG in SODIUM CHLORIDE 0.9% 100 ML IV PRN (14:29)
[2017-12-12] MEDS ORDERED: METOCLOPRAMIDE 5 MG/ML 2 ML VIAL IVP PRN (14:29)
[2017-12-12] MEDS ORDERED: NITROGLYCERIN-D5W PMX 50 MG in DEXTROSE/WATER 1 250ML.BAG IV SCH (14:29)
[2017-12-12] MEDS ORDERED: Magnesium Replacement Protocol 1 EACH MISC MISCELLANE PRN (14:29)
[2017-12-12] MEDS ORDERED: BENZOCAINE/MENTHOL LOZENG 1 EACH LOZENGE MUCOUS MEM PRN (14:29)
[2017-12-12] MEDS ORDERED: ALBUMIN HUMAN 5% 250 ML in EMPTY BAG 1 BAG IVPB PRN (14:29)
[2017-12-12] MEDS ORDERED: INSULIN REGULAR 100 UNIT in SODIUM CHLORIDE 0.9% 100 ML IV SCH (14:29)
[2017-12-12] MEDS ORDERED: IPRATROPIUM-ALBUTEROL 3 ML NEB INHALATION PRN (14:29)
[2017-12-12] MEDS ORDERED: Potassium Replacement Protocol 1 EACH MISC MISCELLANE PRN (14:29)
[2017-12-12] MEDS ORDERED: NOREPINEPHRINE 4 MG in DEXTROSE 5% IN WATER 250 ML IV SCH ×2 (14:30)
[2017-12-12] MEDS: LACTATED RINGERS 1,000 ML IV SCH (15:00)
[2017-12-12 15:12] LABS: Glucose,Whole Blood 85 mg/dL (75-99)
[2017-12-12] MEDS: CLEVIDIPINE BUTYRATE 25 MG in EMPTY BAG 1 BAG IV SCH ×2 (15:15→19:55)
[2017-12-12 15:27] LABS: Ionized Calcium 4.8 mg/dL (4.5-5.3)
[2017-12-12 15:30] LABS: Basophils % (A) 0 %; Eosinophils # (A) 0.1 k/uL (0-0.7); Eosinophils % (A) 1 %; HCT 25.6 % (39.0-53.0); Lymphocytes # (A) 1.2 k/uL (1.0-4.8); Lymphocytes % (A) 26 %; MCH 29.5 pg (25.0-35.0); MCHC 32.6 g/dL (31.0-37.0); MCV 90.3 fL (80.0-100.0); Mean Platelet Volume 8.6; Monocytes # (A) 0.1 k/uL (0-1.0); Monocytes % (A) 2 %; Neutrophils % (A) 69 %; RBC 2.83 m/uL (4.30-5.90); RDW 12.9 % (11.5-15.5); WBC 4.4 k/uL (3.8-10.6)
--- NOTE | 2017-12-12 15:31 | XR ---
EXAMINATION TYPE: XR chest 1V portable DATE OF EXAM: 12/12/2017 Comparison: 12/05/2017 Clinical History: 47-year-old male postoperative cardiac surgery Findings: Median sternotomy wires are present. 2 mediastinal drains, epicardial pacer leads, NG tube looped in the stomach. Satisfactory ET tube. A left-sided chest tube. No appreciable pneumothorax. Right IJ Sw an-Kishan catheter with tip in the distal right main pulmonary artery. Heart normal size. There is some patchy right mid and lower lung density. Trace effusions suggested. Impression: Postoperative changes. There are trace effusions and some hazy right mid and lower lung densities pro bably representing atelectasis.
[2017-12-12 15:32] LABS: INR 1.4 (<1.2); Partial Thromboplastin Time 31.9 sec (22.0-30.0); Prothrombin Time 13.1 sec (9.0-12.0)
[2017-12-12 15:37] LABS: HGB 8.4 gm/dL (13.0-17.5)
[2017-12-12] MEDS: ceFAZolin IN SWFI 2 GM/20 ML SYRINGE IVP SCH ×2 (15:43→23:08)
[2017-12-12 15:45] LABS: ALT 32 U/L (21-72); AST 39 U/L (17-59); Albumin 3.1 g/dL (3.5-5.0); Alkaline Phosphatase 42 U/L (38-126); Anion Gap 6 mmol/L; Blood Urea Nitrogen 8 mg/dL (9-20); Calcium 7.3 mg/dL (8.4-10.2); Carbon Dioxide 24 mmol/L (22-30); Chloride 113 mmol/L (98-107); Glucose 79 mg/dL (74-99); Magnesium 2.6 mg/dL (1.6-2.3); Potassium 4.5 mmol/L (3.5-5.1); Sodium 143 mmol/L (137-145); Total Bilirubin 0.4 mg/dL (0.2-1.3); Total Protein 4.6 g/dL (6.3-8.2)
[2017-12-12 15:53] LABS: ABG Base Excess -3.6 mmol/L; ABG HCO3 24 mmol/L (21-25); ABG Oxygen Saturation 98.4 % (94-97); ABG PCO2 58 mmHg (35-45); ABG PH 7.22 (7.35-7.45); ABG PO2 122 mmHg (83-108); ABG TCO2 26 mmol/L (19-24)
[2017-12-12] MEDS: KETOROLAC 30 MG/ML 1 ML VIAL IVP SCH ×2 (15:54→20:22)
[2017-12-12 15:57] LABS: Platelet Count 83 k/uL (150-450)
[2017-12-12] MEDS ORDERED: IPRATROPIUM-ALBUTEROL 3 ML NEB INHALATION SCH (16:00)
[2017-12-12 16:03] LABS: Glucose,Whole Blood 114 mg/dL (75-99)
--- NOTE | 2017-12-12 16:36 | P.CNPUL ---
History of Present Illness Consult date: 12/12/17 Requesting physician: Aditya Brown Reason for consult: chest pain Chief complaint: Coronary artery disease, chest pain, status post three-vessel CABG History of present illness: Mr. Cruz is a 47-year-old white male patient, who we saw in consultation on 10/25/2017 during his admission for acute ST elevated inferior wall AK, related to critical right coronary artery stenosis, status post PTCA and stenting. Patient was experiencing substernal chest pain and heaviness in bilateral arms at rest. Patient underwent cardiac catheterization, he was found to have acute total occlusion of the distal RCA with intermediate to severe disease involving the distal left main coronary artery. He underwent successful stenting of the distal RCA, he was started on dual antiplatelet therapy in the form of Plavix and aspirin, patient was recommended surgical intervention for his left main stenosis, to which he agreed. Echocardiogram showed impaired left ventricle systolic function with an EF between 40-45%, trace mitral and trace tricuspid regurgitation, no pulmonary hypertension. Preop pulmonary function tests reveal an FEV1 of 3.13 L or 92% of predicted, mild obstruction. Patient recently quit smoking, 3 months ago, prior to that he smoked 1-1/2 packs per day for 34 years. 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 Other medical history includes hypertension. Today he is seen in the intensive care, sedated, on mechanical ventilation, status post three-vessel coronary artery bypass grafting, VALENTINE to LAD, SVG to the Obtuse Marginal, and Ramus, with endoscopic vein harvesting of the left leg. Current vent settings include assist control mode with a rate of 12, tidal volume of 450 , FiO2 100% and PEEP of 5. Blood gases are pending, chest x-ray was completed, and showed trace pleural effusions, and some hazy right mid and lower lung densities probably representing atelectasis. Maintenance IV fluids include LR at 50 ml/hr, nitroglycerin on hold, Diprivan at 25mcg/kg/min, Clevidipine at 6 mg/hr. patient received 300 mL of Cell Saver, 2500 of crystalloids, and 1 L of albumin Intra-Op. EBL was 1500 mL. Lung sounds are clear to auscultation, patient is sinus rhythm with a rate of 95, AV epicardial wires are present. External pacemaker with a backup rate, not connected. PA pressure 32/17, CVP is 10, cardiac output and index is 5.8 and 3.3 respectively. Indwelling catheter is in place, patient is nonoliguric. Mediastinal chest tube with 200 mL of sanguinous output, left pleural chest tube with 40 mL of sanguinous output. Midsternal incision is clean dry and intact, covered with surgical dressing, bilateral lower extremities are oswaldo-wrapped. SCDs were applied. Review of Systems All systems: negative Constitutional: Denies chills, Denies fever Eyes: denies blurred vision, denies pain Ears, nose, mouth and throat: Denies headache, Denies sore throat Cardiovascular: Reports chest pain, Denies shortness of breath Respiratory: Denies cough Gastrointestinal: Denies abdominal pain, Denies diarrhea, Denies nausea, Denies vomiting Musculoskeletal: Denies myalgias Integumentary: Denies pruritus, Denies rash Neurological: Denies numbness, Denies weakness Psychiatric: Denies anxiety, Denies depression Endocrine: Denies fatigue, Denies weight change Past Medical History Past Medical History: Coronary Artery Disease (CAD), Hyperlipidemia, Hypertension, Myocardial Infarction (AK) Additional Past Medical History / Comment(s): 10/25/2017 STEMI with Stent to RCA x1, Last Myocardial Infarction Date:: 10/25/17 History of Any Multi-Drug Resistant Organisms: None Reported Past Surgical History: Heart Catheterization With Stent Past Anesthesia/Blood Transfusion Reactions: No Reported Reaction Additional Past Anesthesia/Blood Transfusion Reaction / Comment(s): Denies surgical procedures so unable to comment on this Date of Last Stent Placement:: 10/25/17 Smoking Status: Former smoker - Past Family History Father Family Medical History: Cancer, Hypertension Additional Family Medical History / Comment(s): Lung CA, at age 63. Mother Family Medical History: COPD Additional Family Medical History / Comment(s): Past away at age 70 from severe COPD. Sister(s) Family Medical History: Hypertension, Thyroid Disorder Medications and Allergies Home Medications Medication Instructions Recorded Confirmed Type Atorvastatin [Lipitor] 80 mg PO HS #30 tab 10/27/17 12/12/17 Rx Carvedilol [Coreg] 3.125 mg PO BID-W/MEALS #60 tab 10/27/17 12/12/17 Rx Losartan [Cozaar] 12.5 mg PO DAILY #30 tab 10/27/17 12/12/17 Rx Nitroglycerin Sl Tabs [Nitrostat] 0.4 mg SUBLINGUAL Q5M PRN #25 tab 10/27/17 Rx Aspirin 81 mg PO QAM 12/01/17 12/12/17 History Clopidogrel [Plavix] 75 mg PO QAM 12/01/17 12/12/17 History Spironolactone [Aldactone] 25 mg PO QAM 12/01/17 12/12/17 History Allergies Allergy/AdvReac Type Severity Reaction Status Date / Time No Known Allergies Allergy Verified 12/12/17 14:54 Physical Exam Vitals: Vital Signs Temp Pulse Pulse Resp BP BP Pulse Ox 12/12/17 06:11 97.8 F 69 77 16 158/92 168/88 100 Intake and Output 12/12/17 12/12/17 12/12/17 06:59 14:59 22:59 Intake Total 33 Output Total 2350 Balance -2317 Intake: IV 33 Output: Urine 850 Estimated Blood Loss 1500 Other: Weight 65 kg GENERAL EXAM: 47-year-old white male, intubated, on mechanical ventilator, sedated, comfortable in no apparent distress. HEAD: Normocephalic/atraumatic. EYES: Normal reaction of pupils, equal size. Conjunctiva pink, sclera white. NOSE: Clear with pink turbinates. THROAT: No erythema or exudates. NECK: No masses, no JVD, no thyroid enlargement, no adenopathy. Right IJ Cordis and PA catheter are present. CHEST: No chest wall deformity. Symmetrical expansion. Midsternal incision is clean dry and intact, 1 mediastinal and left pleural chest tubes with sanguinous output, chest tubes connected to wall suction. AV epicardial wires are in place LUNGS: Equal air entry with no crackles, wheeze, rhonchi or dullness. CVS: Regular rate and rhythm, normal S1 and S2, no gallops, no murmurs, no rubs ABDOMEN: Soft, nontender. No hepatosplenomegaly, normal bowel sounds, no guarding or rigidity. EXTREMITIES: No clubbing, no edema, no cyanosis, 2+ pulses and upper and lower extremities. Left leg incisions covered with surgical dressings, and Oswaldo wrap, SCDs are present on bilateral legs MUSCULOSKELETAL: Muscle strength and tone normal. SPINE: No scoliosis or deformity SKIN: No rashes CENTRAL NERVOUS SYSTEM: Sedated, on mechanical ventilator PSYCHIATRIC: Sedated on mechanical ventilator Results - Laboratory Findings CBC and BMP: 12/12/17 15:10 12/12/17 15:10 ABG ABG pH 7.35 (7.35-7.45) 12/12/17 14:08 ABG pCO2 42 mmHg (35-45) 12/12/17 14:08 ABG pO2 70 mmHg (83-108) L 12/12/17 14:08 ABG O2 Saturation 94.1 % (94-97) 12/12/17 14:08 PT/INR, D-dimer PT 13.1 sec (9.0-12.0) H 12/12/17 15:10 INR 1.4 (<1.2) H 12/12/17 15:10 Abnormal lab findings: Abnormal Labs 12/05/17 12/12/17 12/12/17 16:35 09:13 10:39 RBC Hgb Hct PT INR APTT ABG pH 7.23 L ABG pCO2 61 H ABG pO2 389 H 229 H ABG HCO3 26 H ABG Total CO2 28 H ABG O2 Saturation 100.0 H 99.3 H ABG Hematocrit ABG Sodium ABG Potassium 4.7 H ABG Ionized Calcium ABG Glucose 101 H 124 H ABG Lactic Acid Hemoglobin Chloride BUN Calcium Magnesium Total Protein Albumin Arterial Blood Potassium 4.7 H Arterial Blood Glucose 101 H 124 H Crossmatch See Detail 12/12/17 12/12/17 12/12/17 11:41 12:12 12:48 RBC Hgb Hct PT INR APTT ABG pH 7.30 L ABG pCO2 ABG pO2 281 H 197 H 397 H ABG HCO3 ABG Total CO2 ABG O2 Saturation 100.0 H 99.5 H 100.0 H ABG Hematocrit 26 L 25 L 25 L ABG Sodium 129 L ABG Potassium 7.0 H* 5.6 H 4.6 H ABG Ionized Calcium 4.0 L 4.2 L 4.2 L ABG Glucose 232 H 175 H 142 H ABG Lactic Acid Hemoglobin 8.4 L 8.1 L 8.0 L Chloride BUN Calcium Magnesium Total Protein Albumin Arterial Blood Potassium 7.0 H* 5.6 H 4.6 H Arterial Blood Glucose 232 H 175 H 142 H Crossmatch 12/12/17 12/12/17 12/12/17 13:18 14:08 15:10 RBC 2.83 L Hgb 8.4 L D Hct 25.6 L PT INR APTT ABG pH 7.32 L ABG pCO2 ABG pO2 290 H 70 L ABG HCO3 ABG Total CO2 25 H ABG O2 Saturation 99.9 H ABG Hematocrit 23 L 30 L ABG Sodium ABG Potassium ABG Ionized Calcium 4.3 L 4.2 L ABG Glucose 144 H 117 H ABG Lactic Acid 2.1 H Hemoglobin 7.3 L 9.8 L Chloride BUN Calcium Magnesium Total Protein Albumin Arterial Blood Potassium Arterial Blood Glucose 144 H 117 H Crossmatch 12/12/17 12/12/17 15:10 15:10 RBC Hgb Hct PT 13.1 H INR 1.4 H APTT 31.9 H ABG pH ABG pCO2 ABG pO2 ABG HCO3 ABG Total CO2 ABG O2 Saturation ABG Hematocrit ABG Sodium ABG Potassium ABG Ionized Calcium ABG Glucose ABG Lactic Acid Hemoglobin Chloride 113 H BUN 8 L Calcium 7.3 L Magnesium 2.6 H Total Protein 4.6 L Albumin 3.1 L Arterial Blood Potassium Arterial Blood Glucose Crossmatch - Diagnostic Findings Chest x-ray: report reviewed, image reviewed Assessment and Plan Plan: Assessment: #1. Coronary artery disease, status post three-vessel bypass grafting, with VALENTINE to LAD, SVG to the OM, and Ramus, with endoscopic left leg harvesting, post -op day 0 #2. Postoperative ventilator management #3. Recent hospitalization for acute inferior wall AK, with PTCA and stenting of the RCA from 10/25/2017 through 10/31/2017 #4. History of nicotine dependence, currently in remission, patient smoked one half packs a day for 34 years #5. Ischemic cardiomyopathy, impaired left ventricle systolic function with an EF between 40-45% #6. Hypertension Plan: Postop blood gases were reviewed, and vent settings were adjusted accordingly, assist-control mode with a rate of 20, tidal line 500, FiO2 of 80% and PEEP of 5. Postop chest x-ray has been reviewed, show trace pleural effusions, and right mid and lower lung atelectasis. Moderate about of single in his drainage from the mediastinal chest tube, small amount from the left pleural. Hemodynamically patient is stable, patient is nonoliguric. We'll proceed with spontaneous breathing trials once the patient is awake and able to follow command. Incentive spirometry and pulmonary toileting after extubation. We'll continue to closely monitor. I performed a history & physical examination of the patient and discussed their management with my nurse practitioner, Gely Leblanc. I reviewed the nurse practitioner's note and agree with the documented findings and plan of care. Lung sounds are positive for clear lung sounds. The findings and the impression was discussed with the patient. I attest to the documentation by the nurse practitioner. Time with Patient: Greater than 30
[2017-12-12 16:59] LABS: Glucose,Whole Blood 139 mg/dL (75-99)
[2017-12-12 17:25] LABS: Basophils % (A) 0 %; Eosinophils # (A) 0.1 k/uL (0-0.7); Eosinophils % (A) 1 %; HCT 26.6 % (39.0-53.0); HGB 9.2 gm/dL (13.0-17.5); Lymphocytes % (A) 10 %; MCH 31.3 pg (25.0-35.0); MCHC 34.5 g/dL (31.0-37.0); MCV 90.8 fL (80.0-100.0); Mean Platelet Volume 8.6; Monocytes # (A) 0.1 k/uL (0-1.0); Monocytes % (A) 1 %; Neutrophils # (A) 9.5 k/uL (1.3-7.7); Neutrophils % (A) 88 %; RBC 2.93 m/uL (4.30-5.90); RDW 13.2 % (11.5-15.5); WBC 10.8 k/uL (3.8-10.6)
[2017-12-12 17:31] LABS: Platelet Count 147 k/uL (150-450)
[2017-12-12] MEDS: ACETAMINOPHEN IV (For NPO) 1,000 MG in EMPTY BAG 1 BAG IVPB SCH ×2 (18:01→23:08)
[2017-12-12 18:10] LABS: Glucose,Whole Blood 118 mg/dL (75-99)
[2017-12-12 18:46] LABS: ABG Base Excess -2.1 mmol/L; ABG HCO3 24 mmol/L (21-25); ABG Oxygen Saturation 98.7 % (94-97); ABG PCO2 44 mmHg (35-45); ABG PH 7.34 (7.35-7.45); ABG PO2 114 mmHg (83-108); ABG TCO2 25 mmol/L (19-24)
[2017-12-12 19:19] LABS: Glucose,Whole Blood 111 mg/dL (75-99)
[2017-12-12] MEDS: IPRATROPIUM-ALBUTEROL 3 ML NEB INHALATION SCH (19:22)
[2017-12-12] MEDS: ONDANSETRON 4 MG/2 ML VIAL IVP PRN (20:04)
[2017-12-12 20:08] LABS: Glucose,Whole Blood 115 mg/dL (75-99)
[2017-12-12 20:17] LABS: Basophils % (A) 0 %; Eosinophils % (A) 0 %; HCT 24.2 % (39.0-53.0); HGB 8.5 gm/dL (13.0-17.5); Lymphocytes # (A) 0.6 k/uL (1.0-4.8); Lymphocytes % (A) 5 %; MCH 31.5 pg (25.0-35.0); MCV 89.9 fL (80.0-100.0); Mean Platelet Volume 8.6; Monocytes # (A) 0.3 k/uL (0-1.0); Monocytes % (A) 2 %; Neutrophils # (A) 11.9 k/uL (1.3-7.7); Neutrophils % (A) 93 %; Platelet Count 132 k/uL (150-450); RBC 2.69 m/uL (4.30-5.90); RDW 13.2 % (11.5-15.5); WBC 12.9 k/uL (3.8-10.6)
[2017-12-12] MEDS: MUPIROCIN 2% OINT 22 GM TUBE NASAL SCH (20:23)
--- NOTE | 2017-12-12 20:38 | OP ---
OPERATIVE REPORT DATE OF SURGERY: 12/12/2017. PREOP DIAGNOSIS: Coronary artery disease. POSTOP: Coronary artery disease. PROCEDURE: 1. Coronary artery bypass grafting x3 vessels (left internal mammary artery to left anterior descending artery, saphenous vein graft to high diagonal artery, saphenous vein graft to obtuse marginal artery). 2. Endoscopic vein harvest left greater saphenous vein. 3. Epiaortic ultrasound. 4. Transesophageal echocardiogram. SURGEON: Aditya Brown MD. MACHINE ASSEMBLER: 1. JOSE LUIS Gutierrez. 2. Jus Talley NP. ANESTHESIA: General. SPECIMENS: None. COMPLICATIONS: None. INDICATION: The patient is a 47-year-old male with a history of hypertension who presented to the hospital approximately 6 weeks ago with chest pain. He was diagnosed with an inferior wall PR and emergent PCI was performed with placement of a bare metal stent. He was noted to have additional coronary artery disease including left main disease. He has recovered well from that event and now presents for definitive bypass surgery. The risks, benefits, and alternatives to coronary artery bypass surgery were discussed with the patient and his . All other questions were answered. Consent was obtained. FINDINGS: The left internal mammary artery was a small vessel but had brisk flow. The saphenous vein was a good conduit. The LAD measured 1.5 mm. The diagonal artery measured 1.5 mm. The obtuse marginal artery measured 1.3 mm. PROCEDURE: The patient was taken to the operating room and placed supine on the operating table. After induction of general anesthesia, he was prepped and draped in the usual sterile fashion. Preoperative transesophageal echocardiogram revealed a preserved ejection fraction with no significant valvular pathology. A median sternotomy was performed. The left internal mammary artery was harvested in the standard fashion taking care to clip all branches. Intravenous heparin was administered. The vessel was transected distally revealing brisk flow. Of note, this vessel was small in caliber. Simultaneously greater saphenous vein was harvested from the left lower extremity using endoscopic technique. All branches were tied. The vein was a good conduit. A pericardial cradle was created. The ascending aorta was palpated. It was small in diameter but appeared to be free of calcific disease. Epiaortic ultrasound was then performed on the ascending aorta. Again no calcific disease was identified. There was some atheromatous disease noted. An arterial cannula was placed in the distal ascending aorta. A venous cannula was placed through the right atrial appendage and directed into the IVC. Both antegrade and retrograde catheters were placed as well. The patient was then placed on cardiopulmonary bypass with good decompression of the heart. The aortic cross-clamp was applied. Cold blood potassium cardioplegia was delivered in both antegrade and retrograde fashion to achieve arrest of the heart. Of note, cardioplegia was delivered every 15-20 minutes with the patient under crossclamp. We began by inspecting the lateral wall. The obtuse marginal was identified. It was dissected free. It was on the small side, but I felt it was amenable to bypass. A small arteriotomy was created. This vessel accepted a 1 mm probe. Using saphenous vein in a reverse fashion, an end-to-side anastomosis was created. This was performed using a running 7-0 Prolene suture. The graft was hemostatic and had good flow. Next, the high diagonal artery was identified. It was dissected free. A small arteriotomy was created. This vessel accepted a 1.5 mm probe. Using saphenous vein in a reverse fashion, an end-to-side anastomosis was created. This was performed using running 7-0 Prolene suture. The graft was hemostatic and had good flow. Finally, the anterior surface of the heart was identified. A small arteriotomy was created in the LAD. This vessel accepted a 1.5 mm probe. Using the left internal mammary artery, an end- to-side anastomosis was created. This was performed using a running 8-0 Prolene suture. The graft was hemostatic. The mammary pedicle was then tacked down to the anterior surface of the heart. Attention was then turned to the proximal anastomoses. These were performed in an end-to- side fashion using running 6-0 Prolene sutures. One liter of warm blood was delivered in retrograde fashion. Both lidocaine and magnesium were administered as well. The aortic crossclamp was removed. The vein grafts were deaired in the standard fashion. Distal anastomoses were inspected and appeared to be hemostatic. The retrograde catheter was removed. The patient was then weaned off cardiopulmonary bypass. He without difficulty. Followup transesophageal echocardiogram confirmed good ejection fraction. His cardiac index has actually doubled compared to his preoperative numbers. Protamine was administered. There were no adverse reactions. The remaining cannulas were then removed. The mediastinum was copiously irrigated with warm saline solution. All surgical sites were inspected including distal anastomoses. These appeared to be hemostatic. Soft tissues were reapproximated over the ascending aorta as well as over the apex of the heart. Straight 32- Mauritian chest tubes were placed in the mediastinum and the left pleural space. They were secured to skin using sutures. The sternum was then reapproximated using stainless steel wires in a figure- of-eight fashion. At the completion of the closure, the sternum was well aligned. The remainder of the wound was closed in layers. A sterile dressing was applied. The patient appeared to tolerate the procedure well. There were no immediate complications. He returnedto the ICU on low-dose Levophed in critical but stable condition. MMODL / IJN: [id number] / MTDD
[2017-12-12 21:00] LABS: Glucose,Whole Blood 106 mg/dL (75-99)
[2017-12-12 22:00] LABS: Glucose,Whole Blood 117 mg/dL (75-99)
[2017-12-12] MEDS: HEPARIN SODIUM,PORCINE 5,000 UNIT/ML 1 ML VIAL SQ SCH (22:50)
[2017-12-12 22:55] LABS: Glucose,Whole Blood 105 mg/dL (75-99)
[2017-12-12 23:58] LABS: Glucose,Whole Blood 108 mg/dL (75-99)
[2017-12-13 01:00] LABS: Glucose,Whole Blood 112 mg/dL (75-99)
[2017-12-13 02:04] LABS: Glucose,Whole Blood 112 mg/dL (75-99)
[2017-12-13 03:03] LABS: Glucose,Whole Blood 113 mg/dL (75-99)
[2017-12-13 04:02] LABS: Glucose,Whole Blood 115 mg/dL (75-99)
[2017-12-13 04:12] LABS: Basophils % (A) 0 %; Eosinophils % (A) 0 %; HCT 24.3 % (39.0-53.0); HGB 8.4 gm/dL (13.0-17.5); Lymphocytes % (A) 7 %; MCH 30.6 pg (25.0-35.0); MCHC 34.6 g/dL (31.0-37.0); MCV 88.5 fL (80.0-100.0); Mean Platelet Volume 8.4; Monocytes # (A) 0.3 k/uL (0-1.0); Monocytes % (A) 2 %; Neutrophils # (A) 12.5 k/uL (1.3-7.7); Neutrophils % (A) 90 %; Platelet Count 154 k/uL (150-450); RBC 2.75 m/uL (4.30-5.90); WBC 13.9 k/uL (3.8-10.6)
[2017-12-13 04:20] LABS: INR 1.1 (<1.2); Partial Thromboplastin Time 24.9 sec (22.0-30.0); Prothrombin Time 10.7 sec (9.0-12.0)
[2017-12-13 04:21] LABS: Ionized Calcium 4.7 mg/dL (4.5-5.3)
[2017-12-13 04:35] LABS: ALT 36 U/L (21-72); AST 70 U/L (17-59); Albumin 3.3 g/dL (3.5-5.0); Alkaline Phosphatase 52 U/L (38-126); Anion Gap 6 mmol/L; Blood Urea Nitrogen 9 mg/dL (9-20); Calcium 8.1 mg/dL (8.4-10.2); Carbon Dioxide 26 mmol/L (22-30); Chloride 107 mmol/L (98-107); Glucose 106 mg/dL (74-99); Magnesium 1.9 mg/dL (1.6-2.3); Potassium 4.6 mmol/L (3.5-5.1); Sodium 139 mmol/L (137-145); Total Bilirubin 0.5 mg/dL (0.2-1.3); Total Protein 4.9 g/dL (6.3-8.2)
[2017-12-13] MEDS ORDERED: LACTATED RINGERS 1,000 ML IV ONE (05:00)
[2017-12-13 05:08] LABS: Glucose,Whole Blood 119 mg/dL (75-99)
[2017-12-13] MEDS: ACETAMINOPHEN IV (For NPO) 1,000 MG in EMPTY BAG 1 BAG IVPB SCH ×3 (05:09→17:39)
[2017-12-13] MEDS ORDERED: Magnesium Replacement Protocol 1 EACH MISC MISCELLANE PRN (05:41)
[2017-12-13 06:35] LABS: Glucose,Whole Blood 162 mg/dL (75-99)
[2017-12-13 06:38] LABS: Glucose,Whole Blood 152 mg/dL (75-99)
[2017-12-13] MEDS: CLEVIDIPINE BUTYRATE 25 MG in EMPTY BAG 1 BAG IV SCH (06:50)
[2017-12-13] MEDS: MAGNESIUM SULFATE-D5W PMX 1 GM in DEXTROSE/WATER 1 100ML.BAG IVPB SCH ×2 (07:12→08:53)
--- NOTE | 2017-12-13 07:13 | XR ---
EXAMINATION TYPE: XR chest 1V portable DATE OF EXAM: 12/13/2017 COMPARISON: 12/12/2017 HISTORY: Postoperative cardiac surgery. Follow-up exam. TECHNIQUE: Single frontal view of the chest is obtained. FINDINGS: Epicardial pacing leads, mediastinal drains, median sternotomy wires, mediastinal clips, l eft thoracostomy tube, surgical sutures at the gastroesophageal junction, and right internal jugular Brackenridge-Kishan catheter are unchanged in placement in the interim. Endotracheal tube and enteric tube have been removed. Trace pleural effusions blunt the costophrenic angles. Right infrahilar airspace disease is likely re lated to atelectasis as there are overall low lung volumes. Cardiac silhouette is stable. Osseous str uctures are grossly intact. There is a small residual left pneumothorax with maximal pleural separati on of 4 mm. IMPRESSION: 1. Small left apical pneumothorax with maximal pleural separation of 4 mm. 2. Interval removal of the enteric and endotracheal tube with probable right basilar atelectasis.
[2017-12-13 07:20] LABS: Glucose,Whole Blood 138 mg/dL (75-99)
[2017-12-13] MEDS: IPRATROPIUM-ALBUTEROL 3 ML NEB INHALATION SCH ×4 (07:23→20:37)
--- NOTE | 2017-12-13 07:42 | P.CONS ---
History of Present Illness - Reason for Consult Consult date: 12/12/17 medical mangement Requesting physician: Aditya Brown - Chief Complaint Chest Pain - History of Present Illness Patient is a 47-year-old male with a past medical history of ST segment elevated myocardial infarction with stent to the RCA 10/25/2017 with known multivessel coronary artery disease, ischemic cardiomyopathy with ejection fraction 40-45%, hypertension, and dyslipidemia who presented for triple vessel bypass. On the morning of 12/12/17 he underwent triple vessel bypass grafting with Dr. Brown. He had a VALENTINE to LAD, SVG to obtuse marginal and SVG- high diag with endoscopic vein harvesting of the left leg. Intraoperatively he received 300 MLS of Cell Saver, 2500 mL of crystalloid, and 1 L of albumin. His EBL was 1500. He was admitted to the ICU on the ventilator. He is currently receiving clevidipine and in insulin drip is being initiated. His propofol has been held and he is starting to follow commands. Goal is Extubation within 4 hours. Patient seen and examined at bedside in ICU with nursing and present. He is currently off propofol and is starting his head appropriately. Per patient has not had any recurrent chest pain since leaving the hospital, no shortness of breath, but has been experiencing intermittent palpitations. He has not had any recent cough, cold, fever, flu, nausea, vomiting, or diarrhea. He has been doing well taking his medications appropriately. He is continued to be tobacco free but is using nicotine replacement therapy. He has managed to establish with a primary care physician through [facility]. Review of Systems ROS unobtainable: due to endotracheal tube Past Medical History Past Medical History: Coronary Artery Disease (CAD), Hyperlipidemia, Hypertension, Myocardial Infarction ([place]) Additional Past Medical History / Comment(s): 10/25/2017 STEMI with Stent to RCA x1, ischemic cardiomyopathy with ejection fraction 40-45% Last Myocardial Infarction Date:: 10/25/17 History of Any Multi-Drug Resistant Organisms: None Reported Past Surgical History: Heart Catheterization With Stent Additional Past Surgical History / Comment(s): Triple-vessel bypass surgery Past Anesthesia/Blood Transfusion Reactions: No Reported Reaction Additional Past Anesthesia/Blood Transfusion Reaction / Comm: Denies surgical procedures so unable to comment on this Date of Last Stent Placement:: 10/25/17 Smoking Status: Former smoker Additional History: Lives with - Past Family History Father Family Medical History: Cancer, Hypertension Additional Family Medical History / Comment(s): Lung CA, at age 63. Mother Family Medical History: COPD Additional Family Medical History / Comment(s): Past away at age 70 from severe COPD. Sister(s) Family Medical History: Hypertension, Thyroid Disorder Medications and Allergies Home Medications Medication Instructions Recorded Confirmed Type Atorvastatin [Lipitor] 80 mg PO HS #30 tab 10/27/17 12/12/17 Rx Carvedilol [Coreg] 3.125 mg PO BID-W/MEALS #60 tab 10/27/17 12/12/17 Rx Losartan [Cozaar] 12.5 mg PO DAILY #30 tab 10/27/17 12/12/17 Rx Nitroglycerin Sl Tabs [Nitrostat] 0.4 mg SUBLINGUAL Q5M PRN #25 tab 10/27/17 Rx Aspirin 81 mg PO QAM 12/01/17 12/12/17 History Clopidogrel [Plavix] 75 mg PO QAM 12/01/17 12/12/17 History Spironolactone [Aldactone] 25 mg PO QAM 12/01/17 12/12/17 History Allergies Allergy/AdvReac Type Severity Reaction Status Date / Time No Known Allergies Allergy Verified 12/12/17 14:54 Physical Exam Osteopathic Statement: *. No significant issues noted on an osteopathic structural exam other than those noted in the History and Physical/Consult. Vitals: Vital Signs Temp Pulse Pulse Pulse Resp BP BP 12/12/17 16:41 110 H 12/12/17 16:23 112 H 12/12/17 16:00 91 119/69 12/12/17 15:45 92 119/69 12/12/17 15:30 91 119/69 12/12/17 15:15 92 12/12/17 06:11 97.8 F 69 77 16 158/92 BP Pulse Ox 12/12/17 16:41 12/12/17 16:23 12/12/17 16:00 99 12/12/17 15:45 100 12/12/17 15:30 100 12/12/17 15:15 100 12/12/17 06:11 168/88 100 Intake and Output 12/12/17 12/12/17 12/12/17 06:59 14:59 22:59 Intake Total 33 14.417 Output Total 2350 Balance -2317 14.417 Intake: IV 33 Intake, IV Titration 14.417 Amount Clevidipine Butyrate 25 4.667 mg In Empty Bag 1 bag @ 1 MG/HR 2 mls/hr IV .Q24H ROSANGELA Rx#:[id number] Propofol 1,000 mg In 9.75 Empty Bag 1 bag @ Titrate IV .Q0M ROSANGELA Rx#: [id number] Output: Urine 850 Estimated Blood Loss 1500 Other: Weight 65 kg ABP, PAP, CO, CI - Last 8 Hours Arterial Blood Pressure 120/58 Arterial Blood Pressure 126/64 Arterial Blood Pressure 153/74 Pulmonary Artery Pressure 31/16 Pulmonary Artery Pressure 32/16 Pulmonary Artery Pressure 32/17 Pulmonary Artery Pressure 38/19 Cardiac Output 6 Cardiac Output 5.8 Cardiac Output 5.8 Cardiac Output 5.3 Cardiac Index 3.4 Cardiac Index 3.3 Cardiac Index 3 General: Ill appearing, no distress, appears at stated age, normal weight Derm: no unusual rashes/lesions no unusual ecchymoses, warm, dry, dressing in place over anterior chest wall, Oswaldo wrap complaints over bilateral lower extremities, wrist are in place R Head: atraumatic, normocephalic, symmetric Eyes: EOMI, no lid lag, anicteric sclera, ENT: Nose and ears atraumatic, ET tube in place Neck: Trachea midline, neck supple, Cordis in place right Mouth: no lip lesion, mucus membranes dry Cardiovascular: S1S2 irreg, no murmur, Acei wrap in place, capillary refill less than 2 seconds Lungs: CTA bilateral, no rhonchi, no rales , no accessory muscle use, On vent, 2 chest tubes Abdominal: soft, nontender to palpation, no guarding, no appreciable organomegaly, normal bowel sounds, medistinal tube Ext: no gross muscle atrophy, Moving all 4 extremities independently Neuro: CN II-XI grossly intact, light touch intact all 4 extremities Psych: Lethargic but following commands, not anxious Results CBC & Chem 7: 12/13/17 04:00 12/13/17 04:00 Labs: Abnormal Lab Results - Last 24 Hours (Table) 12/05/17 12/12/17 12/12/17 Range/Units 16:35 09:13 10:39 RBC (4.30-5.90) m/uL Hgb (13.0-17.5) gm/dL Hct (39.0-53.0) % Plt Count (150-450) k/uL PT (9.0-12.0) sec INR (<1.2) APTT (22.0-30.0) sec ABG pH 7.23 L (7.35-7.45) ABG pCO2 61 H (35-45) mmHg ABG pO2 389 H 229 H (83-108) mmHg ABG HCO3 26 H (21-25) mmol/L ABG Total CO2 28 H (19-24) mmol/L ABG O2 Saturation 100.0 H 99.3 H (94-97) % ABG Hematocrit (34.0-46.0) % ABG Sodium (135-146) mmol/L ABG Potassium 4.7 H (3.4-4.5) mmol/L ABG Ionized Calcium (4.5-5.3) mg/dL ABG Glucose 101 H 124 H (75-99) mg/dL ABG Lactic Acid (0.5-1.6) mmol/L Hemoglobin (13.0-17.5) gm/dL Chloride (98-107) mmol/L BUN (9-20) mg/dL POC Glucose (mg/dL) (75-99) mg/dL Calcium (8.4-10.2) mg/dL Magnesium (1.6-2.3) mg/dL Total Protein (6.3-8.2) g/dL Albumin (3.5-5.0) g/dL Arterial Blood Potassium 4.7 H (3.4-4.5) mmol/L Arterial Blood Glucose 101 H 124 H (75-99) mg/dL Crossmatch See Detail 12/12/17 12/12/17 12/12/17 Range/Units 11:41 12:12 12:48 RBC (4.30-5.90) m/uL Hgb (13.0-17.5) gm/dL Hct (39.0-53.0) % Plt Count (150-450) k/uL PT (9.0-12.0) sec INR (<1.2) APTT (22.0-30.0) sec ABG pH 7.30 L (7.35-7.45) ABG pCO2 (35-45) mmHg ABG pO2 281 H 197 H 397 H (83-108) mmHg ABG HCO3 (21-25) mmol/L ABG Total CO2 (19-24) mmol/L ABG O2 Saturation 100.0 H 99.5 H 100.0 H (94-97) % ABG Hematocrit 26 L 25 L 25 L (34.0-46.0) % ABG Sodium 129 L (135-146) mmol/L ABG Potassium 7.0 H* 5.6 H 4.6 H (3.4-4.5) mmol/L ABG Ionized Calcium 4.0 L 4.2 L 4.2 L (4.5-5.3) mg/dL ABG Glucose 232 H 175 H 142 H (75-99) mg/dL ABG Lactic Acid (0.5-1.6) mmol/L Hemoglobin 8.4 L 8.1 L 8.0 L (13.0-17.5) gm/dL Chloride (98-107) mmol/L BUN (9-20) mg/dL POC Glucose (mg/dL) (75-99) mg/dL Calcium (8.4-10.2) mg/dL Magnesium (1.6-2.3) mg/dL Total Protein (6.3-8.2) g/dL Albumin (3.5-5.0) g/dL Arterial Blood Potassium 7.0 H* 5.6 H 4.6 H (3.4-4.5) mmol/L Arterial Blood Glucose 232 H 175 H 142 H (75-99) mg/dL Crossmatch 12/12/17 12/12/17 12/12/17 Range/Units 13:18 14:08 15:10 RBC 2.83 L (4.30-5.90) m/uL Hgb 8.4 L D (13.0-17.5) gm/dL Hct 25.6 L (39.0-53.0) % Plt Count 83 L D (150-450) k/uL PT (9.0-12.0) sec INR (<1.2) APTT (22.0-30.0) sec ABG pH 7.32 L (7.35-7.45) ABG pCO2 (35-45) mmHg ABG pO2 290 H 70 L (83-108) mmHg ABG HCO3 (21-25) mmol/L ABG Total CO2 25 H (19-24) mmol/L ABG O2 Saturation 99.9 H (94-97) % ABG Hematocrit 23 L 30 L (34.0-46.0) % ABG Sodium (135-146) mmol/L ABG Potassium (3.4-4.5) mmol/L ABG Ionized Calcium 4.3 L 4.2 L (4.5-5.3) mg/dL ABG Glucose 144 H 117 H (75-99) mg/dL ABG Lactic Acid 2.1 H (0.5-1.6) mmol/L Hemoglobin 7.3 L 9.8 L (13.0-17.5) gm/dL Chloride (98-107) mmol/L BUN (9-20) mg/dL POC Glucose (mg/dL) (75-99) mg/dL Calcium (8.4-10.2) mg/dL Magnesium (1.6-2.3) mg/dL Total Protein (6.3-8.2) g/dL Albumin (3.5-5.0) g/dL Arterial Blood Potassium (3.4-4.5) mmol/L Arterial Blood Glucose 144 H 117 H (75-99) mg/dL Crossmatch 12/12/17 12/12/17 12/12/17 Range/Units 15:10 15:10 15:42 RBC (4.30-5.90) m/uL Hgb (13.0-17.5) gm/dL Hct (39.0-53.0) % Plt Count (150-450) k/uL PT 13.1 H (9.0-12.0) sec INR 1.4 H (<1.2) APTT 31.9 H (22.0-30.0) sec ABG pH 7.22 L (7.35-7.45) ABG pCO2 58 H (35-45) mmHg ABG pO2 122 H (83-108) mmHg ABG HCO3 (21-25) mmol/L ABG Total CO2 26 H (19-24) mmol/L ABG O2 Saturation 98.4 H (94-97) % ABG Hematocrit (34.0-46.0) % ABG Sodium (135-146) mmol/L ABG Potassium (3.4-4.5) mmol/L ABG Ionized Calcium (4.5-5.3) mg/dL ABG Glucose (75-99) mg/dL ABG Lactic Acid (0.5-1.6) mmol/L Hemoglobin (13.0-17.5) gm/dL Chloride 113 H (98-107) mmol/L BUN 8 L (9-20) mg/dL POC Glucose (mg/dL) (75-99) mg/dL Calcium 7.3 L (8.4-10.2) mg/dL Magnesium 2.6 H (1.6-2.3) mg/dL Total Protein 4.6 L (6.3-8.2) g/dL Albumin 3.1 L (3.5-5.0) g/dL Arterial Blood Potassium (3.4-4.5) mmol/L Arterial Blood Glucose (75-99) mg/dL Crossmatch 12/12/17 12/12/17 Range/Units 16:01 16:57 RBC (4.30-5.90) m/uL Hgb (13.0-17.5) gm/dL Hct (39.0-53.0) % Plt Count (150-450) k/uL PT (9.0-12.0) sec INR (<1.2) APTT (22.0-30.0) sec ABG pH (7.35-7.45) ABG pCO2 (35-45) mmHg ABG pO2 (83-108) mmHg ABG HCO3 (21-25) mmol/L ABG Total CO2 (19-24) mmol/L ABG O2 Saturation (94-97) % ABG Hematocrit (34.0-46.0) % ABG Sodium (135-146) mmol/L ABG Potassium (3.4-4.5) mmol/L ABG Ionized Calcium (4.5-5.3) mg/dL ABG Glucose (75-99) mg/dL ABG Lactic Acid (0.5-1.6) mmol/L Hemoglobin (13.0-17.5) gm/dL Chloride (98-107) mmol/L BUN (9-20) mg/dL POC Glucose (mg/dL) 114 H 139 H (75-99) mg/dL Calcium (8.4-10.2) mg/dL Magnesium (1.6-2.3) mg/dL Total Protein (6.3-8.2) g/dL Albumin (3.5-5.0) g/dL Arterial Blood Potassium (3.4-4.5) mmol/L Arterial Blood Glucose (75-99) mg/dL Crossmatch Assessment and Plan Assessment: Coronary artery disease s/p 3 vessel bypass - Management per CVT services: Clevidinepine, insulin gtt, ASA lipitor, Plavix, Lopressor Ischemic cardiomyopathy with EF 40-45% - ASA, lipitor, Lopressor Monitor fluid status closely - Cozaar/aldactone currently on hold Anemia, due to acute blood loss as an expectedoutcome -2 units on hold, follow CBC Thrombocytopenia, reactive - follow CBC HTN, controlled - Continue medications as ablove - BP being followed with art line HLD - statin DVT Prophylaxis: Heparin SC Thank you for allowing us to participate in the care of this patient. Do not hesitate to contact us with questions. Someone can be reached from the [facility] hospitalist group at all hours of the day at [phone]. Day team Blue [phone].
--- NOTE | 2017-12-13 07:57 | CONS ---
CONSULTATION Mr. Cruz is a 47-year-old male who underwent coronary bypass grafting yesterday. His cardiac history is remarkable for the fact that he presented on the 25 of October with an acute inferior myocardial infarction, was evaluated at that time by Dr. Henning and underwent cardiac catheterization that revealed a totally occluded right coronary artery, 60% distal left main, 70% ostial stenosis in the LAD and a 60% ostial left circumflex lesion. He subsequently underwent stenting of the right coronary artery done by Dr. Parker using a bare metal stent and was readmitted electively to undergo coronary artery bypass grafting. His left ventricular systolic function during his admission in October showed ejection fraction of 40% to 45%. The patient since his surgery has done well. His breathing has been stable. Yesterday, he underwent coronary bypass grafting with VALENTINE to the LAD, saphenous vein graft to diagonal branch, saphenous vein graft to the obtuse marginal branch. He is complaining of chest wall tenderness. This morning, he has mild dyspnea. Occasional dizziness. No palpitation. He has mild nausea. His coronary risk factors are remarkable for prior history of smoking which he stopped about 3 months ago. He has a history of hyperlipidemia. MEDICATIONS: His medications at the time of admission included Aldactone 25 mg daily, losartan 12.5 mg daily, clopidogrel 75 mg daily, Coreg 3.125 mg twice a day, Lipitor 80 mg daily and aspirin once a day. REVIEW OF SYSTEMS: RESPIRATORY SYSTEM: He had mild dyspnea on exertion. No wheezing or cough. GI SYSTEM: No recent GI bleed. No peptic ulcer disease. SYSTEM: No dysuria or hematuria. NERVOUS SYSTEM: No stroke or seizure. PHYSICAL EXAMINATION: He is a 47-year-old male, alert, oriented, sitting up in the chair. Blood pressure 139/60 with the heart rate in the 90s. HEAD: Normocephalic. EYES: Sclerae anicteric. NECK: No bruits. Drew-Kishan in the right IJ. LUNGS: With few crackles at the bases. HEART: Regular rate and rhythm, S1, S2. No S3 with soft systolic murmur. No diastolic murmur. No rub. ABDOMEN: Soft, nontender. Positive bowel sounds. No organomegaly. EXTREMITIES: Pressure dressing in place. LAB DATA: Lab data revealed a hemoglobin of 8.4, white blood cells 13.9. BUN and creatinine 9 and 0.87. EKG revealed sinus mechanism with a normal axis and intervals with evidence of inferior wall ischemia with T-wave inversion and probable early pericarditis changes. Chest x-ray shows no infiltrate. IMPRESSION: 1. Status post coronary artery bypass grafting, stable. 2. Status post inferior myocardial infarction with mild to moderate ischemic cardiomyopathy in October. 3. Prior history of smoking. 4. History of hyperlipidemia. RECOMMENDATION: From the cardiac standpoint, we will continue present therapy. Depending on his blood pressure, his angiotensin receptor rj as well as his beta rj will be adjusted. He will be continued on his statin. He will continue incentive spirometry. Thank you for this consult. We will follow with you. AKASHL / IJN: [id number] /
[2017-12-13] MEDS ORDERED: METOCLOPRAMIDE 5 MG/ML 2 ML VIAL IVP STA (08:35)
--- NOTE | 2017-12-13 08:50 | P.PN ---
Subjective Progress Note Date: 12/13/17 Principal diagnosis: Chest pain Patient is a 47-year-old male with a past medical history of ST segment elevated myocardial infarction with stent to the RCA 10/25/2017 with known multivessel coronary artery disease, ischemic cardiomyopathy with ejection fraction 40-45%, hypertension, and dyslipidemia who presented for triple vessel bypass. On the morning of 12/12/17 he underwent triple vessel bypass grafting with Dr. Brown. He had a VALENTINE to LAD, SVG to obtuse marginal and SVG- high diag with endoscopic vein harvesting of the left leg. Intraoperatively he received 300 ml of Cell Saver, 2500 mL of crystalloid, and 1 L of albumin. His EBL was 1500. He was admitted to the ICU on the ventilator and was extubated 4 hours later. 12/13 awake, alert, and sitting in chair. Patient seen and examined at bedside with and ICU nurse present. He complains of pain across the precordium worse with deep inspiration, and knows this is anticipated from surgery. He is feeling a bit tired today. No shortness of breath. No nausea, no vomiting. Objective - Vital Signs Vital signs: Vital Signs Temp 97.8 F 12/12/17 06:11 Pulse 103 H 12/13/17 07:33 Resp 18 12/13/17 07:33 BP 104/61 12/12/17 21:00 Pulse Ox 99 12/13/17 07:00 Intake & Output 12/12/17 12/13/17 12/13/17 18:59 06:59 18:59 Intake Total 880.474 2507.642 59 Output Total 3954 2196 120 Balance -3589.772 -837.358 -61 Weight 68 kg Intake: IV 90 758 59 CO/CI 30 100 Lactated Ringers 1,000 ml 550 50 @ 50 mls/hr IV .Q20H [facility] Rx#:[id number] Pressure Bag 27 108 9 Intake, IV Titration 274.228 100.642 Amount Clevidipine Butyrate 25 13.333 50.000 mg In Empty Bag 1 bag @ 1 MG/HR 2 mls/hr IV .Q24H [facility] Rx#:[id number] Insulin Regular 100 unit 1.145 0.642 In Sodium Chloride 0.9% 100 ml @ Per Protocol IV .Q0M [facility] Rx#:[id number] Lactated Ringers 1,000 ml 200 50 @ 50 mls/hr IV .Q20H [facility] Rx#:[id number] Propofol 1,000 mg In 9.75 Empty Bag 1 bag @ Titrate IV .Q0M [facility] Rx#: [id number] ceFAZolin 2,000 mg In 50 Sodium Chloride 0.9% 30 ml @ Per Protocol IVPB ONCE ONE Rx#:[id number] Oral 500 Output: Chest Tube Drainage [address] 67 74 0 Right & Left Medistinal [address] Urine 2067 1752 100 Estimated Blood Loss 1500 Other: Voiding Method Indwelling Catheter Indwelling Catheter ABP, PAP, CO, CI - Last Documented Arterial Blood Pressure 128/58 Pulmonary Artery Pressure 22/10 Cardiac Output 5.6 Cardiac Index 3.2 - Exam General: ill appearing, [mild distress due to pain], [appears at stated age] Derm: [warm], [dry] Head: [atraumatic], [normocephalic], [symmetric] Eyes: [EOMI], [no lid lag], [anicteric sclera] Mouth: [no lip lesion], [mucus membranes dry] Cardiovascular: [S1S2 reg], [no murmur], [positive posterior tibial pulse bilateral], + mediastinal tube Lungs: [decreased bs b/l without wheeze], [no rhonchi, no rales] , [no accessory muscle use], +chest tube serosanguinaous drainage. Abdominal: [soft], [ nontender to palpation], [no guarding], [no appreciable organomegaly] Ext: [no gross muscle atrophy], [no edema], [no contractures] Neuro: [ CN II-XI grossly intact], [no focal neuro deficits] Psych: [Alert], [oriented], [appropriate affect] - Labs CBC & Chem 7: 12/13/17 04:00 12/13/17 04:00 Labs: Abnormal Lab Results - Last 24 Hours (Table) 12/05/17 12/12/17 12/12/17 Range/Units 16:35 09:13 10:39 WBC (3.8-10.6) k/uL RBC (4.30-5.90) m/uL Hgb (13.0-17.5) gm/dL Hct (39.0-53.0) % Plt Count (150-450) k/uL Neutrophils # (1.3-7.7) k/uL Lymphocytes # (1.0-4.8) k/uL PT (9.0-12.0) sec INR (<1.2) APTT (22.0-30.0) sec ABG pH 7.23 L (7.35-7.45) ABG pCO2 61 H (35-45) mmHg ABG pO2 389 H 229 H (83-108) mmHg ABG HCO3 26 H (21-25) mmol/L ABG Total CO2 28 H (19-24) mmol/L ABG O2 Saturation 100.0 H 99.3 H (94-97) % ABG Hematocrit (34.0-46.0) % ABG Sodium (135-146) mmol/L ABG Potassium 4.7 H (3.4-4.5) mmol/L ABG Ionized Calcium (4.5-5.3) mg/dL ABG Glucose 101 H 124 H (75-99) mg/dL ABG Lactic Acid (0.5-1.6) mmol/L Hemoglobin (13.0-17.5) gm/dL Chloride (98-107) mmol/L BUN (9-20) mg/dL Glucose (74-99) mg/dL POC Glucose (mg/dL) (75-99) mg/dL Calcium (8.4-10.2) mg/dL Magnesium (1.6-2.3) mg/dL AST (17-59) U/L Total Protein (6.3-8.2) g/dL Albumin (3.5-5.0) g/dL Arterial Blood Potassium 4.7 H (3.4-4.5) mmol/L Arterial Blood Glucose 101 H 124 H (75-99) mg/dL Crossmatch See Detail 12/12/17 12/12/17 12/12/17 Range/Units 11:41 12:12 12:48 WBC (3.8-10.6) k/uL RBC (4.30-5.90) m/uL Hgb (13.0-17.5) gm/dL Hct (39.0-53.0) % Plt Count (150-450) k/uL Neutrophils # (1.3-7.7) k/uL Lymphocytes # (1.0-4.8) k/uL PT (9.0-12.0) sec INR (<1.2) APTT (22.0-30.0) sec ABG pH 7.30 L (7.35-7.45) ABG pCO2 (35-45) mmHg ABG pO2 281 H 197 H 397 H (83-108) mmHg ABG HCO3 (21-25) mmol/L ABG Total CO2 (19-24) mmol/L ABG O2 Saturation 100.0 H 99.5 H 100.0 H (94-97) % ABG Hematocrit 26 L 25 L 25 L (34.0-46.0) % ABG Sodium 129 L (135-146) mmol/L ABG Potassium 7.0 H* 5.6 H 4.6 H (3.4-4.5) mmol/L ABG Ionized Calcium 4.0 L 4.2 L 4.2 L (4.5-5.3) mg/dL ABG Glucose 232 H 175 H 142 H (75-99) mg/dL ABG Lactic Acid (0.5-1.6) mmol/L Hemoglobin 8.4 L 8.1 L 8.0 L (13.0-17.5) gm/dL Chloride (98-107) mmol/L BUN (9-20) mg/dL Glucose (74-99) mg/dL POC Glucose (mg/dL) (75-99) mg/dL Calcium (8.4-10.2) mg/dL Magnesium (1.6-2.3) mg/dL AST (17-59) U/L Total Protein (6.3-8.2) g/dL Albumin (3.5-5.0) g/dL Arterial Blood Potassium 7.0 H* 5.6 H 4.6 H (3.4-4.5) mmol/L Arterial Blood Glucose 232 H 175 H 142 H (75-99) mg/dL Crossmatch 12/12/17 12/12/17 12/12/17 Range/Units 13:18 14:08 15:10 WBC (3.8-10.6) k/uL RBC 2.83 L (4.30-5.90) m/uL Hgb 8.4 L D (13.0-17.5) gm/dL Hct 25.6 L (39.0-53.0) % Plt Count 83 L D (150-450) k/uL Neutrophils # (1.3-7.7) k/uL Lymphocytes # (1.0-4.8) k/uL PT (9.0-12.0) sec INR (<1.2) APTT (22.0-30.0) sec ABG pH 7.32 L (7.35-7.45) ABG pCO2 (35-45) mmHg ABG pO2 290 H 70 L (83-108) mmHg ABG HCO3 (21-25) mmol/L ABG Total CO2 25 H (19-24) mmol/L ABG O2 Saturation 99.9 H (94-97) % ABG Hematocrit 23 L 30 L (34.0-46.0) % ABG Sodium (135-146) mmol/L ABG Potassium (3.4-4.5) mmol/L ABG Ionized Calcium 4.3 L 4.2 L (4.5-5.3) mg/dL ABG Glucose 144 H 117 H (75-99) mg/dL ABG Lactic Acid 2.1 H (0.5-1.6) mmol/L Hemoglobin 7.3 L 9.8 L (13.0-17.5) gm/dL Chloride (98-107) mmol/L BUN (9-20) mg/dL Glucose (74-99) mg/dL POC Glucose (mg/dL) (75-99) mg/dL Calcium (8.4-10.2) mg/dL Magnesium (1.6-2.3) mg/dL AST (17-59) U/L Total Protein (6.3-8.2) g/dL Albumin (3.5-5.0) g/dL Arterial Blood Potassium (3.4-4.5) mmol/L Arterial Blood Glucose 144 H 117 H (75-99) mg/dL Crossmatch 12/12/17 12/12/17 12/12/17 Range/Units 15:10 15:10 15:42 WBC (3.8-10.6) k/uL RBC (4.30-5.90) m/uL Hgb (13.0-17.5) gm/dL Hct (39.0-53.0) % Plt Count (150-450) k/uL Neutrophils # (1.3-7.7) k/uL Lymphocytes # (1.0-4.8) k/uL PT 13.1 H (9.0-12.0) sec INR 1.4 H (<1.2) APTT 31.9 H (22.0-30.0) sec ABG pH 7.22 L (7.35-7.45) ABG pCO2 58 H (35-45) mmHg ABG pO2 122 H (83-108) mmHg ABG HCO3 (21-25) mmol/L ABG Total CO2 26 H (19-24) mmol/L ABG O2 Saturation 98.4 H (94-97) % ABG Hematocrit (34.0-46.0) % ABG Sodium (135-146) mmol/L ABG Potassium (3.4-4.5) mmol/L ABG Ionized Calcium (4.5-5.3) mg/dL ABG Glucose (75-99) mg/dL ABG Lactic Acid (0.5-1.6) mmol/L Hemoglobin (13.0-17.5) gm/dL Chloride 113 H (98-107) mmol/L BUN 8 L (9-20) mg/dL Glucose (74-99) mg/dL POC Glucose (mg/dL) (75-99) mg/dL Calcium 7.3 L (8.4-10.2) mg/dL Magnesium 2.6 H (1.6-2.3) mg/dL AST (17-59) U/L Total Protein 4.6 L (6.3-8.2) g/dL Albumin 3.1 L (3.5-5.0) g/dL Arterial Blood Potassium (3.4-4.5) mmol/L Arterial Blood Glucose (75-99) mg/dL Crossmatch 12/12/17 12/12/17 12/12/17 Range/Units 16:01 16:57 17:15 WBC 10.8 H (3.8-10.6) k/uL RBC 2.93 L (4.30-5.90) m/uL Hgb 9.2 L (13.0-17.5) gm/dL Hct 26.6 L (39.0-53.0) % Plt Count 147 L D (150-450) k/uL Neutrophils # 9.5 H (1.3-7.7) k/uL Lymphocytes # (1.0-4.8) k/uL PT (9.0-12.0) sec INR (<1.2) APTT (22.0-30.0) sec ABG pH (7.35-7.45) ABG pCO2 (35-45) mmHg ABG pO2 (83-108) mmHg ABG HCO3 (21-25) mmol/L ABG Total CO2 (19-24) mmol/L ABG O2 Saturation (94-97) % ABG Hematocrit (34.0-46.0) % ABG Sodium (135-146) mmol/L ABG Potassium (3.4-4.5) mmol/L ABG Ionized Calcium (4.5-5.3) mg/dL ABG Glucose (75-99) mg/dL ABG Lactic Acid (0.5-1.6) mmol/L Hemoglobin (13.0-17.5) gm/dL Chloride (98-107) mmol/L BUN (9-20) mg/dL Glucose (74-99) mg/dL POC Glucose (mg/dL) 114 H 139 H (75-99) mg/dL Calcium (8.4-10.2) mg/dL Magnesium (1.6-2.3) mg/dL AST (17-59) U/L Total Protein (6.3-8.2) g/dL Albumin (3.5-5.0) g/dL Arterial Blood Potassium (3.4-4.5) mmol/L Arterial Blood Glucose (75-99) mg/dL Crossmatch 12/12/17 12/12/17 12/12/17 Range/Units 18:07 18:41 19:17 WBC (3.8-10.6) k/uL RBC (4.30-5.90) m/uL Hgb (13.0-17.5) gm/dL Hct (39.0-53.0) % Plt Count (150-450) k/uL Neutrophils # (1.3-7.7) k/uL Lymphocytes # (1.0-4.8) k/uL PT (9.0-12.0) sec INR (<1.2) APTT (22.0-30.0) sec ABG pH 7.34 L (7.35-7.45) ABG pCO2 (35-45) mmHg ABG pO2 114 H (83-108) mmHg ABG HCO3 (21-25) mmol/L ABG Total CO2 25 H (19-24) mmol/L ABG O2 Saturation 98.7 H (94-97) % ABG Hematocrit (34.0-46.0) % ABG Sodium (135-146) mmol/L ABG Potassium (3.4-4.5) mmol/L ABG Ionized Calcium (4.5-5.3) mg/dL ABG Glucose (75-99) mg/dL ABG Lactic Acid (0.5-1.6) mmol/L Hemoglobin (13.0-17.5) gm/dL Chloride (98-107) mmol/L BUN (9-20) mg/dL Glucose (74-99) mg/dL POC Glucose (mg/dL) 118 H 111 H (75-99) mg/dL Calcium (8.4-10.2) mg/dL Magnesium (1.6-2.3) mg/dL AST (17-59) U/L Total Protein (6.3-8.2) g/dL Albumin (3.5-5.0) g/dL Arterial Blood Potassium (3.4-4.5) mmol/L Arterial Blood Glucose (75-99) mg/dL Crossmatch 12/12/17 12/12/17 12/12/17 Range/Units 20:00 20:07 20:57 WBC 12.9 H (3.8-10.6) k/uL RBC 2.69 L (4.30-5.90) m/uL Hgb 8.5 L (13.0-17.5) gm/dL Hct 24.2 L (39.0-53.0) % Plt Count 132 L (150-450) k/uL Neutrophils # 11.9 H (1.3-7.7) k/uL Lymphocytes # 0.6 L (1.0-4.8) k/uL PT (9.0-12.0) sec INR (<1.2) APTT (22.0-30.0) sec ABG pH (7.35-7.45) ABG pCO2 (35-45) mmHg ABG pO2 (83-108) mmHg ABG HCO3 (21-25) mmol/L ABG Total CO2 (19-24) mmol/L ABG O2 Saturation (94-97) % ABG Hematocrit (34.0-46.0) % ABG Sodium (135-146) mmol/L ABG Potassium (3.4-4.5) mmol/L ABG Ionized Calcium (4.5-5.3) mg/dL ABG Glucose (75-99) mg/dL ABG Lactic Acid (0.5-1.6) mmol/L Hemoglobin (13.0-17.5) gm/dL Chloride (98-107) mmol/L BUN (9-20) mg/dL Glucose (74-99) mg/dL POC Glucose (mg/dL) 115 H 106 H (75-99) mg/dL Calcium (8.4-10.2) mg/dL Magnesium (1.6-2.3) mg/dL AST (17-59) U/L Total Protein (6.3-8.2) g/dL Albumin (3.5-5.0) g/dL Arterial Blood Potassium (3.4-4.5) mmol/L Arterial Blood Glucose (75-99) mg/dL Crossmatch 12/12/17 12/12/17 12/12/17 Range/Units 21:59 22:54 23:56 WBC (3.8-10.6) k/uL RBC (4.30-5.90) m/uL Hgb (13.0-17.5) gm/dL Hct (39.0-53.0) % Plt Count (150-450) k/uL Neutrophils # (1.3-7.7) k/uL Lymphocytes # (1.0-4.8) k/uL PT (9.0-12.0) sec INR (<1.2) APTT (22.0-30.0) sec ABG pH (7.35-7.45) ABG pCO2 (35-45) mmHg ABG pO2 (83-108) mmHg ABG HCO3 (21-25) mmol/L ABG Total CO2 (19-24) mmol/L ABG O2 Saturation (94-97) % ABG Hematocrit (34.0-46.0) % ABG Sodium (135-146) mmol/L ABG Potassium (3.4-4.5) mmol/L ABG Ionized Calcium (4.5-5.3) mg/dL ABG Glucose (75-99) mg/dL ABG Lactic Acid (0.5-1.6) mmol/L Hemoglobin (13.0-17.5) gm/dL Chloride (98-107) mmol/L BUN (9-20) mg/dL Glucose (74-99) mg/dL POC Glucose (mg/dL) 117 H 105 H 108 H (75-99) mg/dL Calcium (8.4-10.2) mg/dL Magnesium (1.6-2.3) mg/dL AST (17-59) U/L Total Protein (6.3-8.2) g/dL Albumin (3.5-5.0) g/dL Arterial Blood Potassium (3.4-4.5) mmol/L Arterial Blood Glucose (75-99) mg/dL Crossmatch 12/13/17 12/13/17 12/13/17 Range/Units 00:59 02:03 03:01 WBC (3.8-10.6) k/uL RBC (4.30-5.90) m/uL Hgb (13.0-17.5) gm/dL Hct (39.0-53.0) % Plt Count (150-450) k/uL Neutrophils # (1.3-7.7) k/uL Lymphocytes # (1.0-4.8) k/uL PT (9.0-12.0) sec INR (<1.2) APTT (22.0-30.0) sec ABG pH (7.35-7.45) ABG pCO2 (35-45) mmHg ABG pO2 (83-108) mmHg ABG HCO3 (21-25) mmol/L ABG Total CO2 (19-24) mmol/L ABG O2 Saturation (94-97) % ABG Hematocrit (34.0-46.0) % ABG Sodium (135-146) mmol/L ABG Potassium (3.4-4.5) mmol/L ABG Ionized Calcium (4.5-5.3) mg/dL ABG Glucose (75-99) mg/dL ABG Lactic Acid (0.5-1.6) mmol/L Hemoglobin (13.0-17.5) gm/dL Chloride (98-107) mmol/L BUN (9-20) mg/dL Glucose (74-99) mg/dL POC Glucose (mg/dL) 112 H 112 H 113 H (75-99) mg/dL Calcium (8.4-10.2) mg/dL Magnesium (1.6-2.3) mg/dL AST (17-59) U/L Total Protein (6.3-8.2) g/dL Albumin (3.5-5.0) g/dL Arterial Blood Potassium (3.4-4.5) mmol/L Arterial Blood Glucose (75-99) mg/dL Crossmatch 12/13/17 12/13/17 12/13/17 Range/Units 04:00 04:00 04:00 WBC 13.9 H (3.8-10.6) k/uL RBC 2.75 L (4.30-5.90) m/uL Hgb 8.4 L (13.0-17.5) gm/dL Hct 24.3 L (39.0-53.0) % Plt Count (150-450) k/uL Neutrophils # 12.5 H (1.3-7.7) k/uL Lymphocytes # (1.0-4.8) k/uL PT (9.0-12.0) sec INR (<1.2) APTT (22.0-30.0) sec ABG pH (7.35-7.45) ABG pCO2 (35-45) mmHg ABG pO2 (83-108) mmHg ABG HCO3 (21-25) mmol/L ABG Total CO2 (19-24) mmol/L ABG O2 Saturation (94-97) % ABG Hematocrit (34.0-46.0) % ABG Sodium (135-146) mmol/L ABG Potassium (3.4-4.5) mmol/L ABG Ionized Calcium (4.5-5.3) mg/dL ABG Glucose (75-99) mg/dL ABG Lactic Acid (0.5-1.6) mmol/L Hemoglobin (13.0-17.5) gm/dL Chloride (98-107) mmol/L BUN (9-20) mg/dL Glucose 106 H (74-99) mg/dL POC Glucose (mg/dL) 115 H (75-99) mg/dL Calcium 8.1 L (8.4-10.2) mg/dL Magnesium (1.6-2.3) mg/dL AST 70 H (17-59) U/L Total Protein 4.9 L (6.3-8.2) g/dL Albumin 3.3 L (3.5-5.0) g/dL Arterial Blood Potassium (3.4-4.5) mmol/L Arterial Blood Glucose (75-99) mg/dL Crossmatch 12/13/17 12/13/17 12/13/17 Range/Units 05:06 06:34 06:37 WBC (3.8-10.6) k/uL RBC (4.30-5.90) m/uL Hgb (13.0-17.5) gm/dL Hct (39.0-53.0) % Plt Count (150-450) k/uL Neutrophils # (1.3-7.7) k/uL Lymphocytes # (1.0-4.8) k/uL PT (9.0-12.0) sec INR (<1.2) APTT (22.0-30.0) sec ABG pH (7.35-7.45) ABG pCO2 (35-45) mmHg ABG pO2 (83-108) mmHg ABG HCO3 (21-25) mmol/L ABG Total CO2 (19-24) mmol/L ABG O2 Saturation (94-97) % ABG Hematocrit (34.0-46.0) % ABG Sodium (135-146) mmol/L ABG Potassium (3.4-4.5) mmol/L ABG Ionized Calcium (4.5-5.3) mg/dL ABG Glucose (75-99) mg/dL ABG Lactic Acid (0.5-1.6) mmol/L Hemoglobin (13.0-17.5) gm/dL Chloride (98-107) mmol/L BUN (9-20) mg/dL Glucose (74-99) mg/dL POC Glucose (mg/dL) 119 H 162 H 152 H (75-99) mg/dL Calcium (8.4-10.2) mg/dL Magnesium (1.6-2.3) mg/dL AST (17-59) U/L Total Protein (6.3-8.2) g/dL Albumin (3.5-5.0) g/dL Arterial Blood Potassium (3.4-4.5) mmol/L Arterial Blood Glucose (75-99) mg/dL Crossmatch 12/13/17 Range/Units 07:18 WBC (3.8-10.6) k/uL RBC (4.30-5.90) m/uL Hgb (13.0-17.5) gm/dL Hct (39.0-53.0) % Plt Count (150-450) k/uL Neutrophils # (1.3-7.7) k/uL Lymphocytes # (1.0-4.8) k/uL PT (9.0-12.0) sec INR (<1.2) APTT (22.0-30.0) sec ABG pH (7.35-7.45) ABG pCO2 (35-45) mmHg ABG pO2 (83-108) mmHg ABG HCO3 (21-25) mmol/L ABG Total CO2 (19-24) mmol/L ABG O2 Saturation (94-97) % ABG Hematocrit (34.0-46.0) % ABG Sodium (135-146) mmol/L ABG Potassium (3.4-4.5) mmol/L ABG Ionized Calcium (4.5-5.3) mg/dL ABG Glucose (75-99) mg/dL ABG Lactic Acid (0.5-1.6) mmol/L Hemoglobin (13.0-17.5) gm/dL Chloride (98-107) mmol/L BUN (9-20) mg/dL Glucose (74-99) mg/dL POC Glucose (mg/dL) 138 H (75-99) mg/dL Calcium (8.4-10.2) mg/dL Magnesium (1.6-2.3) mg/dL AST (17-59) U/L Total Protein (6.3-8.2) g/dL Albumin (3.5-5.0) g/dL Arterial Blood Potassium (3.4-4.5) mmol/L Arterial Blood Glucose (75-99) mg/dL Crossmatch Assessment and Plan Assessment: Coronary artery disease s/p 3 vessel bypass - Management per CVT services: Clevidinepine, insulin gtt, ASA lipitor, Plavix, Lopressor Ischemic cardiomyopathy with EF 40-45% - ASA, lipitor, Lopressor Monitor fluid status closely - Cozaar/aldactone currently on hold Anemia, due to acute blood loss as an expected outcome -2 units on hold, follow CBC Thrombocytopenia, reactive - follow CBC HTN, controlled - Continue medications as ablove - BP being followed with art line HLD - statin DVT Prophylaxis: Heparin SC
[2017-12-13] MEDS: ceFAZolin IN SWFI 2 GM/20 ML SYRINGE IVP SCH (08:53)
[2017-12-13] MEDS: HEPARIN SODIUM,PORCINE 5,000 UNIT/ML 1 ML VIAL SQ SCH ×3 (08:54→23:16)
[2017-12-13] MEDS: ASPIRIN 325 MG TAB PO SCH (08:54)
[2017-12-13] MEDS: CLOPIDOGREL 75 MG TAB PO SCH (08:54)
[2017-12-13] MEDS: MUPIROCIN 2% OINT 22 GM TUBE NASAL SCH ×2 (08:54→20:16)
[2017-12-13] MEDS: ATORVASTATIN 40 MG TAB PO SCH (08:54)
[2017-12-13] MEDS: METOPROLOL TARTRATE 25 MG TAB PO SCH ×2 (08:58→20:16)
[2017-12-13] MEDS: KETOROLAC 30 MG/ML 1 ML VIAL IVP SCH ×4 (08:58→20:16)
[2017-12-13] MEDS ORDERED: PANTOPRAZOLE 40 MG/10 ML VIAL IVP SCH (09:00)
[2017-12-13 09:06] LABS: Glucose,Whole Blood 154 mg/dL (75-99)
--- NOTE | 2017-12-13 09:10 | P.PN ---
<Barbara Cuellar - Last Filed: 12/13/17 09:00> Subjective Progress Note Date: 12/13/17 Principal diagnosis: Coronary artery disease Mr. Cruz is a 47-year-old white male patient, who we saw in consultation on 10/25/2017 during his admission for acute ST elevated inferior wall [place], related to critical right coronary artery stenosis, status post PTCA and stenting. Patient was experiencing substernal chest pain and heaviness in bilateral arms at rest. Patient underwent cardiac catheterization, he was found to have acute total occlusion of the distal RCA with intermediate to severe disease involving the distal left main coronary artery. He underwent successful stenting of the distal RCA, he was started on dual antiplatelet therapy in the form of Plavix and aspirin, patient was recommended surgical intervention for his left main stenosis, to which he agreed. Echocardiogram showed impaired left ventricle systolic function with an EF between 40-45%, trace mitral and trace tricuspid regurgitation, no pulmonary hypertension. Preop pulmonary function tests reveal an FEV1 of 3.13 L or 92% of predicted, mild obstruction. Patient recently quit smoking, 3 months ago, prior to that he smoked 1-1/2 packs per day for 34 years. 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 Other medical history includes hypertension. Today he is seen in the intensive care, sedated, on mechanical ventilation, status post three-vessel coronary artery bypass grafting, VALENTINE to LAD, SVG to the Obtuse Marginal, and Ramus, with endoscopic vein harvesting of the left leg. Current vent settings include assist control mode with a rate of 12, tidal volume of 450 , FiO2 100% and PEEP of 5. Blood gases are pending, chest x-ray was completed, and showed trace pleural effusions, and some hazy right mid and lower lung densities probably representing atelectasis. Maintenance IV fluids include LR at 50 ml/hr, nitroglycerin on hold, Diprivan at 25mcg/kg/min, Clevidipine at 6 mg/hr. patient received 300 mL of Cell Saver, 2500 of crystalloids, and 1 L of albumin Intra-Op. EBL was 1500 mL. Lung sounds are clear to auscultation, patient is sinus rhythm with a rate of 95, AV epicardial wires are present. External pacemaker with a backup rate, not connected. PA pressure 32/17, CVP is 10, cardiac output and index is 5.8 and 3.3 respectively. Indwelling catheter is in place, patient is nonoliguric. Mediastinal chest tube with 200 mL of sanguinous output, left pleural chest tube with 40 mL of sanguinous output. Midsternal incision is clean dry and intact, covered with surgical dressing, bilateral lower extremities are pierre-wrapped. SCDs were applied. The patient is seen again today 12/13/2017 in follow-up in the intensive care unit. He is currently sitting up in a chair at the bedside. He is awake and alert in no acute distress. He was successfully extubated early last evening. Today's chest x-ray shows a small left apical pneumothorax with a maximal pleural separation of 4 mm. Mediastinal left and right chest tubes remain in place. He is maintaining good O2 saturations in the high 90s on 3 L/m per nasal cannula. Current vital signs are stable, slightly tachycardic. PA pressure 22/ 10 CVP 5. Metoprolol was added 25 mg twice a day today. He did have one episode of hypotension with initial standing. He received albumin. He is currently on clevidipine 4 mg per hour. Insulin at 0.5 units per hour. Lactated Ringer's at 50 MLS per hour. His pain is well controlled. He denies any worsening shortness of breath, cough or congestion. He is working well with the incentive spirometer. White count 13.9. Hemoglobin 8.4. Creatinine 0.87. Objective - Vital Signs Vital signs: Vital Signs Temp 97.8 F 12/12/17 06:11 Pulse 103 H 12/13/17 07:33 Resp 18 12/13/17 07:33 BP 104/61 12/12/17 21:00 Pulse Ox 99 12/13/17 07:00 Intake & Output 12/12/17 12/13/17 12/13/17 18:59 06:59 18:59 Intake Total 965.242 0166.642 59 Output Total 3954 2196 120 Balance -3589.772 -837.358 -61 Weight 68 kg Intake: IV 90 758 59 CO/CI 30 100 Lactated Ringers 1,000 ml 550 50 @ 50 mls/hr IV .Q20H [facility] Rx#:[id number] Pressure Bag 27 108 9 Intake, IV Titration 274.228 100.642 Amount Clevidipine Butyrate 25 13.333 50.000 mg In Empty Bag 1 bag @ 1 MG/HR 2 mls/hr IV .Q24H [facility] Rx#:[id number] Insulin Regular 100 unit 1.145 0.642 In Sodium Chloride 0.9% 100 ml @ Per Protocol IV .Q0M [facility] Rx#:[id number] Lactated Ringers 1,000 ml 200 50 @ 50 mls/hr IV .Q20H [facility] Rx#:[id number] Propofol 1,000 mg In 9.75 Empty Bag 1 bag @ Titrate IV .Q0M [facility] Rx#: [id number] ceFAZolin 2,000 mg In 50 Sodium Chloride 0.9% 30 ml @ Per Protocol IVPB ONCE ONE Rx#:[id number] Oral 500 Output: Chest Tube Drainage [address] 67 74 0 Right & Left Medistinal [address] Urine 2067 1752 100 Estimated Blood Loss 1500 Other: Voiding Method Indwelling Catheter Indwelling Catheter ABP, PAP, CO, CI - Last Documented Arterial Blood Pressure 128/58 Pulmonary Artery Pressure 22/10 Cardiac Output 5.6 Cardiac Index 3.2 - Exam GENERAL EXAM: Alert, active, comfortable in no apparent distress. HEAD: Normocephalic. EYES: Normal reaction of pupils, equal size. NOSE: Clear with pink turbinates. THROAT: No erythema or exudates. NECK: No masses, no JVD. CHEST: Dressing is dry and intact. Chest tubes remain in place. LUNGS: Equal air entry with crackles in the posterior bases. CVS: S1 and S2 normal with no audible murmur, regular rhythm. ABDOMEN: No hepatosplenomegaly, normal bowel sounds, no guarding or rigidity. SPINE: No scoliosis or deformity SKIN: No rashes CENTRAL NERVOUS SYSTEM: No focal deficits, tone is normal in all 4 extremities. EXTREMITIES: There is trace peripheral edema. No clubbing, no cyanosis. Peripheral pulses are intact. - Labs CBC & Chem 7: 12/13/17 04:00 12/13/17 04:00 Labs: Abnormal Lab Results - Last 24 Hours (Table) 12/05/17 12/12/17 12/12/17 Range/Units 16:35 09:13 10:39 WBC (3.8-10.6) k/uL RBC (4.30-5.90) m/uL Hgb (13.0-17.5) gm/dL Hct (39.0-53.0) % Plt Count (150-450) k/uL Neutrophils # (1.3-7.7) k/uL Lymphocytes # (1.0-4.8) k/uL PT (9.0-12.0) sec INR (<1.2) APTT (22.0-30.0) sec ABG pH 7.23 L (7.35-7.45) ABG pCO2 61 H (35-45) mmHg ABG pO2 389 H 229 H (83-108) mmHg ABG HCO3 26 H (21-25) mmol/L ABG Total CO2 28 H (19-24) mmol/L ABG O2 Saturation 100.0 H 99.3 H (94-97) % ABG Hematocrit (34.0-46.0) % ABG Sodium (135-146) mmol/L ABG Potassium 4.7 H (3.4-4.5) mmol/L ABG Ionized Calcium (4.5-5.3) mg/dL ABG Glucose 101 H 124 H (75-99) mg/dL ABG Lactic Acid (0.5-1.6) mmol/L Hemoglobin (13.0-17.5) gm/dL Chloride (98-107) mmol/L BUN (9-20) mg/dL Glucose (74-99) mg/dL POC Glucose (mg/dL) (75-99) mg/dL Calcium (8.4-10.2) mg/dL Magnesium (1.6-2.3) mg/dL AST (17-59) U/L Total Protein (6.3-8.2) g/dL Albumin (3.5-5.0) g/dL Arterial Blood Potassium 4.7 H (3.4-4.5) mmol/L Arterial Blood Glucose 101 H 124 H (75-99) mg/dL Crossmatch See Detail 12/12/17 12/12/17 12/12/17 Range/Units 11:41 12:12 12:48 WBC (3.8-10.6) k/uL RBC (4.30-5.90) m/uL Hgb (13.0-17.5) gm/dL Hct (39.0-53.0) % Plt Count (150-450) k/uL Neutrophils # (1.3-7.7) k/uL Lymphocytes # (1.0-4.8) k/uL PT (9.0-12.0) sec INR (<1.2) APTT (22.0-30.0) sec ABG pH 7.30 L (7.35-7.45) ABG pCO2 (35-45) mmHg ABG pO2 281 H 197 H 397 H (83-108) mmHg ABG HCO3 (21-25) mmol/L ABG Total CO2 (19-24) mmol/L ABG O2 Saturation 100.0 H 99.5 H 100.0 H (94-97) % ABG Hematocrit 26 L 25 L 25 L (34.0-46.0) % ABG Sodium 129 L (135-146) mmol/L ABG Potassium 7.0 H* 5.6 H 4.6 H (3.4-4.5) mmol/L ABG Ionized Calcium 4.0 L 4.2 L 4.2 L (4.5-5.3) mg/dL ABG Glucose 232 H 175 H 142 H (75-99) mg/dL ABG Lactic Acid (0.5-1.6) mmol/L Hemoglobin 8.4 L 8.1 L 8.0 L (13.0-17.5) gm/dL Chloride (98-107) mmol/L BUN (9-20) mg/dL Glucose (74-99) mg/dL POC Glucose (mg/dL) (75-99) mg/dL Calcium (8.4-10.2) mg/dL Magnesium (1.6-2.3) mg/dL AST (17-59) U/L Total Protein (6.3-8.2) g/dL Albumin (3.5-5.0) g/dL Arterial Blood Potassium 7.0 H* 5.6 H 4.6 H (3.4-4.5) mmol/L Arterial Blood Glucose 232 H 175 H 142 H (75-99) mg/dL Crossmatch 12/12/17 12/12/17 12/12/17 Range/Units 13:18 14:08 15:10 WBC (3.8-10.6) k/uL RBC 2.83 L (4.30-5.90) m/uL Hgb 8.4 L D (13.0-17.5) gm/dL Hct 25.6 L (39.0-53.0) % Plt Count 83 L D (150-450) k/uL Neutrophils # (1.3-7.7) k/uL Lymphocytes # (1.0-4.8) k/uL PT (9.0-12.0) sec INR (<1.2) APTT (22.0-30.0) sec ABG pH 7.32 L (7.35-7.45) ABG pCO2 (35-45) mmHg ABG pO2 290 H 70 L (83-108) mmHg ABG HCO3 (21-25) mmol/L ABG Total CO2 25 H (19-24) mmol/L ABG O2 Saturation 99.9 H (94-97) % ABG Hematocrit 23 L 30 L (34.0-46.0) % ABG Sodium (135-146) mmol/L ABG Potassium (3.4-4.5) mmol/L ABG Ionized Calcium 4.3 L 4.2 L (4.5-5.3) mg/dL ABG Glucose 144 H 117 H (75-99) mg/dL ABG Lactic Acid 2.1 H (0.5-1.6) mmol/L Hemoglobin 7.3 L 9.8 L (13.0-17.5) gm/dL Chloride (98-107) mmol/L BUN (9-20) mg/dL Glucose (74-99) mg/dL POC Glucose (mg/dL) (75-99) mg/dL Calcium (8.4-10.2) mg/dL Magnesium (1.6-2.3) mg/dL AST (17-59) U/L Total Protein (6.3-8.2) g/dL Albumin (3.5-5.0) g/dL Arterial Blood Potassium (3.4-4.5) mmol/L Arterial Blood Glucose 144 H 117 H (75-99) mg/dL Crossmatch 12/12/17 12/12/17 12/12/17 Range/Units 15:10 15:10 15:42 WBC (3.8-10.6) k/uL RBC (4.30-5.90) m/uL Hgb (13.0-17.5) gm/dL Hct (39.0-53.0) % Plt Count (150-450) k/uL Neutrophils # (1.3-7.7) k/uL Lymphocytes # (1.0-4.8) k/uL PT 13.1 H (9.0-12.0) sec INR 1.4 H (<1.2) APTT 31.9 H (22.0-30.0) sec ABG pH 7.22 L (7.35-7.45) ABG pCO2 58 H (35-45) mmHg ABG pO2 122 H (83-108) mmHg ABG HCO3 (21-25) mmol/L ABG Total CO2 26 H (19-24) mmol/L ABG O2 Saturation 98.4 H (94-97) % ABG Hematocrit (34.0-46.0) % ABG Sodium (135-146) mmol/L ABG Potassium (3.4-4.5) mmol/L ABG Ionized Calcium (4.5-5.3) mg/dL ABG Glucose (75-99) mg/dL ABG Lactic Acid (0.5-1.6) mmol/L Hemoglobin (13.0-17.5) gm/dL Chloride 113 H (98-107) mmol/L BUN 8 L (9-20) mg/dL Glucose (74-99) mg/dL POC Glucose (mg/dL) (75-99) mg/dL Calcium 7.3 L (8.4-10.2) mg/dL Magnesium 2.6 H (1.6-2.3) mg/dL AST (17-59) U/L Total Protein 4.6 L (6.3-8.2) g/dL Albumin 3.1 L (3.5-5.0) g/dL Arterial Blood Potassium (3.4-4.5) mmol/L Arterial Blood Glucose (75-99) mg/dL Crossmatch 12/12/17 12/12/17 12/12/17 Range/Units 16:01 16:57 17:15 WBC 10.8 H (3.8-10.6) k/uL RBC 2.93 L (4.30-5.90) m/uL Hgb 9.2 L (13.0-17.5) gm/dL Hct 26.6 L (39.0-53.0) % Plt Count 147 L D (150-450) k/uL Neutrophils # 9.5 H (1.3-7.7) k/uL Lymphocytes # (1.0-4.8) k/uL PT (9.0-12.0) sec INR (<1.2) APTT (22.0-30.0) sec ABG pH (7.35-7.45) ABG pCO2 (35-45) mmHg ABG pO2 (83-108) mmHg ABG HCO3 (21-25) mmol/L ABG Total CO2 (19-24) mmol/L ABG O2 Saturation (94-97) % ABG Hematocrit (34.0-46.0) % ABG Sodium (135-146) mmol/L ABG Potassium (3.4-4.5) mmol/L ABG Ionized Calcium (4.5-5.3) mg/dL ABG Glucose (75-99) mg/dL ABG Lactic Acid (0.5-1.6) mmol/L Hemoglobin (13.0-17.5) gm/dL Chloride (98-107) mmol/L BUN (9-20) mg/dL Glucose (74-99) mg/dL POC Glucose (mg/dL) 114 H 139 H (75-99) mg/dL Calcium (8.4-10.2) mg/dL Magnesium (1.6-2.3) mg/dL AST (17-59) U/L Total Protein (6.3-8.2) g/dL Albumin (3.5-5.0) g/dL Arterial Blood Potassium (3.4-4.5) mmol/L Arterial Blood Glucose (75-99) mg/dL Crossmatch 12/12/17 12/12/17 12/12/17 Range/Units 18:07 18:41 19:17 WBC (3.8-10.6) k/uL RBC (4.30-5.90) m/uL Hgb (13.0-17.5) gm/dL Hct (39.0-53.0) % Plt Count (150-450) k/uL Neutrophils # (1.3-7.7) k/uL Lymphocytes # (1.0-4.8) k/uL PT (9.0-12.0) sec INR (<1.2) APTT (22.0-30.0) sec ABG pH 7.34 L (7.35-7.45) ABG pCO2 (35-45) mmHg ABG pO2 114 H (83-108) mmHg ABG HCO3 (21-25) mmol/L ABG Total CO2 25 H (19-24) mmol/L ABG O2 Saturation 98.7 H (94-97) % ABG Hematocrit (34.0-46.0) % ABG Sodium (135-146) mmol/L ABG Potassium (3.4-4.5) mmol/L ABG Ionized Calcium (4.5-5.3) mg/dL ABG Glucose (75-99) mg/dL ABG Lactic Acid (0.5-1.6) mmol/L Hemoglobin (13.0-17.5) gm/dL Chloride (98-107) mmol/L BUN (9-20) mg/dL Glucose (74-99) mg/dL POC Glucose (mg/dL) 118 H 111 H (75-99) mg/dL Calcium (8.4-10.2) mg/dL Magnesium (1.6-2.3) mg/dL AST (17-59) U/L Total Protein (6.3-8.2) g/dL Albumin (3.5-5.0) g/dL Arterial Blood Potassium (3.4-4.5) mmol/L Arterial Blood Glucose (75-99) mg/dL Crossmatch 12/12/17 12/12/17 12/12/17 Range/Units 20:00 20:07 20:57 WBC 12.9 H (3.8-10.6) k/uL RBC 2.69 L (4.30-5.90) m/uL Hgb 8.5 L (13.0-17.5) gm/dL Hct 24.2 L (39.0-53.0) % Plt Count 132 L (150-450) k/uL Neutrophils # 11.9 H (1.3-7.7) k/uL Lymphocytes # 0.6 L (1.0-4.8) k/uL PT (9.0-12.0) sec INR (<1.2) APTT (22.0-30.0) sec ABG pH (7.35-7.45) ABG pCO2 (35-45) mmHg ABG pO2 (83-108) mmHg ABG HCO3 (21-25) mmol/L ABG Total CO2 (19-24) mmol/L ABG O2 Saturation (94-97) % ABG Hematocrit (34.0-46.0) % ABG Sodium (135-146) mmol/L ABG Potassium (3.4-4.5) mmol/L ABG Ionized Calcium (4.5-5.3) mg/dL ABG Glucose (75-99) mg/dL ABG Lactic Acid (0.5-1.6) mmol/L Hemoglobin (13.0-17.5) gm/dL Chloride (98-107) mmol/L BUN (9-20) mg/dL Glucose (74-99) mg/dL POC Glucose (mg/dL) 115 H 106 H (75-99) mg/dL Calcium (8.4-10.2) mg/dL Magnesium (1.6-2.3) mg/dL AST (17-59) U/L Total Protein (6.3-8.2) g/dL Albumin (3.5-5.0) g/dL Arterial Blood Potassium (3.4-4.5) mmol/L Arterial Blood Glucose (75-99) mg/dL Crossmatch 12/12/17 12/12/17 12/12/17 Range/Units 21:59 22:54 23:56 WBC (3.8-10.6) k/uL RBC (4.30-5.90) m/uL Hgb (13.0-17.5) gm/dL Hct (39.0-53.0) % Plt Count (150-450) k/uL Neutrophils # (1.3-7.7) k/uL Lymphocytes # (1.0-4.8) k/uL PT (9.0-12.0) sec INR (<1.2) APTT (22.0-30.0) sec ABG pH (7.35-7.45) ABG pCO2 (35-45) mmHg ABG pO2 (83-108) mmHg ABG HCO3 (21-25) mmol/L ABG Total CO2 (19-24) mmol/L ABG O2 Saturation (94-97) % ABG Hematocrit (34.0-46.0) % ABG Sodium (135-146) mmol/L ABG Potassium (3.4-4.5) mmol/L ABG Ionized Calcium (4.5-5.3) mg/dL ABG Glucose (75-99) mg/dL ABG Lactic Acid (0.5-1.6) mmol/L Hemoglobin (13.0-17.5) gm/dL Chloride (98-107) mmol/L BUN (9-20) mg/dL Glucose (74-99) mg/dL POC Glucose (mg/dL) 117 H 105 H 108 H (75-99) mg/dL Calcium (8.4-10.2) mg/dL Magnesium (1.6-2.3) mg/dL AST (17-59) U/L Total Protein (6.3-8.2) g/dL Albumin (3.5-5.0) g/dL Arterial Blood Potassium (3.4-4.5) mmol/L Arterial Blood Glucose (75-99) mg/dL Crossmatch 12/13/17 12/13/17 12/13/17 Range/Units 00:59 02:03 03:01 WBC (3.8-10.6) k/uL RBC (4.30-5.90) m/uL Hgb (13.0-17.5) gm/dL Hct (39.0-53.0) % Plt Count (150-450) k/uL Neutrophils # (1.3-7.7) k/uL Lymphocytes # (1.0-4.8) k/uL PT (9.0-12.0) sec INR (<1.2) APTT (22.0-30.0) sec ABG pH (7.35-7.45) ABG pCO2 (35-45) mmHg ABG pO2 (83-108) mmHg ABG HCO3 (21-25) mmol/L ABG Total CO2 (19-24) mmol/L ABG O2 Saturation (94-97) % ABG Hematocrit (34.0-46.0) % ABG Sodium (135-146) mmol/L ABG Potassium (3.4-4.5) mmol/L ABG Ionized Calcium (4.5-5.3) mg/dL ABG Glucose (75-99) mg/dL ABG Lactic Acid (0.5-1.6) mmol/L Hemoglobin (13.0-17.5) gm/dL Chloride (98-107) mmol/L BUN (9-20) mg/dL Glucose (74-99) mg/dL POC Glucose (mg/dL) 112 H 112 H 113 H (75-99) mg/dL Calcium (8.4-10.2) mg/dL Magnesium (1.6-2.3) mg/dL AST (17-59) U/L Total Protein (6.3-8.2) g/dL Albumin (3.5-5.0) g/dL Arterial Blood Potassium (3.4-4.5) mmol/L Arterial Blood Glucose (75-99) mg/dL Crossmatch 12/13/17 12/13/17 12/13/17 Range/Units 04:00 04:00 04:00 WBC 13.9 H (3.8-10.6) k/uL RBC 2.75 L (4.30-5.90) m/uL Hgb 8.4 L (13.0-17.5) gm/dL Hct 24.3 L (39.0-53.0) % Plt Count (150-450) k/uL Neutrophils # 12.5 H (1.3-7.7) k/uL Lymphocytes # (1.0-4.8) k/uL PT (9.0-12.0) sec INR (<1.2) APTT (22.0-30.0) sec ABG pH (7.35-7.45) ABG pCO2 (35-45) mmHg ABG pO2 (83-108) mmHg ABG HCO3 (21-25) mmol/L ABG Total CO2 (19-24) mmol/L ABG O2 Saturation (94-97) % ABG Hematocrit (34.0-46.0) % ABG Sodium (135-146) mmol/L ABG Potassium (3.4-4.5) mmol/L ABG Ionized Calcium (4.5-5.3) mg/dL ABG Glucose (75-99) mg/dL ABG Lactic Acid (0.5-1.6) mmol/L Hemoglobin (13.0-17.5) gm/dL Chloride (98-107) mmol/L BUN (9-20) mg/dL Glucose 106 H (74-99) mg/dL POC Glucose (mg/dL) 115 H (75-99) mg/dL Calcium 8.1 L (8.4-10.2) mg/dL Magnesium (1.6-2.3) mg/dL AST 70 H (17-59) U/L Total Protein 4.9 L (6.3-8.2) g/dL Albumin 3.3 L (3.5-5.0) g/dL Arterial Blood Potassium (3.4-4.5) mmol/L Arterial Blood Glucose (75-99) mg/dL Crossmatch 12/13/17 12/13/17 12/13/17 Range/Units 05:06 06:34 06:37 WBC (3.8-10.6) k/uL RBC (4.30-5.90) m/uL Hgb (13.0-17.5) gm/dL Hct (39.0-53.0) % Plt Count (150-450) k/uL Neutrophils # (1.3-7.7) k/uL Lymphocytes # (1.0-4.8) k/uL PT (9.0-12.0) sec INR (<1.2) APTT (22.0-30.0) sec ABG pH (7.35-7.45) ABG pCO2 (35-45) mmHg ABG pO2 (83-108) mmHg ABG HCO3 (21-25) mmol/L ABG Total CO2 (19-24) mmol/L ABG O2 Saturation (94-97) % ABG Hematocrit (34.0-46.0) % ABG Sodium (135-146) mmol/L ABG Potassium (3.4-4.5) mmol/L ABG Ionized Calcium (4.5-5.3) mg/dL ABG Glucose (75-99) mg/dL ABG Lactic Acid (0.5-1.6) mmol/L Hemoglobin (13.0-17.5) gm/dL Chloride (98-107) mmol/L BUN (9-20) mg/dL Glucose (74-99) mg/dL POC Glucose (mg/dL) 119 H 162 H 152 H (75-99) mg/dL Calcium (8.4-10.2) mg/dL Magnesium (1.6-2.3) mg/dL AST (17-59) U/L Total Protein (6.3-8.2) g/dL Albumin (3.5-5.0) g/dL Arterial Blood Potassium (3.4-4.5) mmol/L Arterial Blood Glucose (75-99) mg/dL Crossmatch 12/13/17 Range/Units 07:18 WBC (3.8-10.6) k/uL RBC (4.30-5.90) m/uL Hgb (13.0-17.5) gm/dL Hct (39.0-53.0) % Plt Count (150-450) k/uL Neutrophils # (1.3-7.7) k/uL Lymphocytes # (1.0-4.8) k/uL PT (9.0-12.0) sec INR (<1.2) APTT (22.0-30.0) sec ABG pH (7.35-7.45) ABG pCO2 (35-45) mmHg ABG pO2 (83-108) mmHg ABG HCO3 (21-25) mmol/L ABG Total CO2 (19-24) mmol/L ABG O2 Saturation (94-97) % ABG Hematocrit (34.0-46.0) % ABG Sodium (135-146) mmol/L ABG Potassium (3.4-4.5) mmol/L ABG Ionized Calcium (4.5-5.3) mg/dL ABG Glucose (75-99) mg/dL ABG Lactic Acid (0.5-1.6) mmol/L Hemoglobin (13.0-17.5) gm/dL Chloride (98-107) mmol/L BUN (9-20) mg/dL Glucose (74-99) mg/dL POC Glucose (mg/dL) 138 H (75-99) mg/dL Calcium (8.4-10.2) mg/dL Magnesium (1.6-2.3) mg/dL AST (17-59) U/L Total Protein (6.3-8.2) g/dL Albumin (3.5-5.0) g/dL Arterial Blood Potassium (3.4-4.5) mmol/L Arterial Blood Glucose (75-99) mg/dL Crossmatch Assessment and Plan Assessment: Assessment: #1. Coronary artery disease, status post three-vessel bypass grafting, with VALENTINE to LAD, SVG to the OM, and Ramus, with endoscopic left leg harvesting, post -op day #1. #2. Postoperative ventilator management #3. Recent hospitalization for acute inferior wall [place], with PTCA and stenting of the RCA from 10/25/2017 through 10/31/2017 #4. History of nicotine dependence, currently in remission, patient smoked one half packs a day for 34 years #5. Ischemic cardiomyopathy, impaired left ventricle systolic function with an EF between 40-45% #6. Hypertension Plan: The patient was seen and evaluated by Dr. Mchugh. Chest x-ray and labs all reviewed. The patient is doing well from the pulmonary standpoint. Maintaining good O2 saturations in the upper 90s on 3 L/m per nasal cannula. Titrate down the FiO2 L maintain O2 saturations greater than 92%. He is working well with the incentive spirometer. Continue with bronchodilators. Heparin for DVT prophylaxis. Protonix for GI prophylaxis. We will increase his activity as tolerated. We'll continue to follow and make further recommendations based on his clinical status. I, the cosigning physician, performed a history & physical examination of the patient. Lungs sounds with crackles in the bilateral posterior bases. Maintaining good O2 saturations in the 90s on 3 L/m per nasal cannula. I discussed the assessment and plan of care with my nurse practitioner, Barbara Cuellar. I attest to the above note as dictated by her. <Lobo Mchugh - Last Filed: 12/13/17 10:23> Objective - Vital Signs Vital signs: Vital Signs Temp 97.8 F 12/12/17 06:11 Pulse 103 H 12/13/17 07:33 Resp 18 12/13/17 07:33 BP 104/61 12/12/17 21:00 Pulse Ox 99 12/13/17 07:00 Intake & Output 12/12/17 12/13/17 12/13/17 18:59 06:59 18:59 Intake Total 343.258 8752.642 60.733 Output Total 3954 2196 120 Balance -3589.772 -837.358 -59.267 Weight 68 kg Intake: IV 90 758 59 CO/CI 30 100 Lactated Ringers 1,000 ml 550 50 @ 50 mls/hr IV .Q20H [facility] Rx#:[id number] Pressure Bag 27 108 9 Intake, IV Titration 274.228 100.642 1.733 Amount Clevidipine Butyrate 25 13.333 50.000 mg In Empty Bag 1 bag @ 1 MG/HR 2 mls/hr IV .Q24H [facility] Rx#:[id number] Insulin Regular 100 unit 1.145 0.642 1.733 In Sodium Chloride 0.9% 100 ml @ Per Protocol IV .Q0M [facility] Rx#:[id number] Lactated Ringers 1,000 ml 200 50 @ 50 mls/hr IV .Q20H [facility] Rx#:[id number] Propofol 1,000 mg In 9.75 Empty Bag 1 bag @ Titrate IV .Q0M [facility] Rx#: [id number] ceFAZolin 2,000 mg In 50 Sodium Chloride 0.9% 30 ml @ Per Protocol IVPB ONCE ONE Rx#:[id number] Oral 500 Output: Chest Tube Drainage [address] 67 74 0 Right & Left Medistinal [address] Urine 2067 1752 100 Estimated Blood Loss 1500 Other: Voiding Method Indwelling Catheter Indwelling Catheter ABP, PAP, CO, CI - Last Documented Arterial Blood Pressure 128/58 Pulmonary Artery Pressure 22/10 Cardiac Output 5.6 Cardiac Index 3.2 - Labs CBC & Chem 7: 12/13/17 04:00 12/13/17 04:00 Labs: Abnormal Lab Results - Last 24 Hours (Table) 12/05/17 12/12/17 12/12/17 Range/Units 16:35 10:39 11:41 WBC (3.8-10.6) k/uL RBC (4.30-5.90) m/uL Hgb (13.0-17.5) gm/dL Hct (39.0-53.0) % Plt Count (150-450) k/uL Neutrophils # (1.3-7.7) k/uL Lymphocytes # (1.0-4.8) k/uL PT (9.0-12.0) sec INR (<1.2) APTT (22.0-30.0) sec ABG pH 7.23 L (7.35-7.45) ABG pCO2 61 H (35-45) mmHg ABG pO2 229 H 281 H (83-108) mmHg ABG HCO3 26 H (21-25) mmol/L ABG Total CO2 28 H (19-24) mmol/L ABG O2 Saturation 99.3 H 100.0 H (94-97) % ABG Hematocrit 26 L (34.0-46.0) % ABG Sodium 129 L (135-146) mmol/L ABG Potassium 4.7 H 7.0 H* (3.4-4.5) mmol/L ABG Ionized Calcium 4.0 L (4.5-5.3) mg/dL ABG Glucose 124 H 232 H (75-99) mg/dL ABG Lactic Acid (0.5-1.6) mmol/L Hemoglobin 8.4 L (13.0-17.5) gm/dL Chloride (98-107) mmol/L BUN (9-20) mg/dL Glucose (74-99) mg/dL POC Glucose (mg/dL) (75-99) mg/dL Calcium (8.4-10.2) mg/dL Magnesium (1.6-2.3) mg/dL AST (17-59) U/L Total Protein (6.3-8.2) g/dL Albumin (3.5-5.0) g/dL Arterial Blood Potassium 4.7 H 7.0 H* (3.4-4.5) mmol/L Arterial Blood Glucose 124 H 232 H (75-99) mg/dL Crossmatch See Detail 12/12/17 12/12/17 12/12/17 Range/Units 12:12 12:48 13:18 WBC (3.8-10.6) k/uL RBC (4.30-5.90) m/uL Hgb (13.0-17.5) gm/dL Hct (39.0-53.0) % Plt Count (150-450) k/uL Neutrophils # (1.3-7.7) k/uL Lymphocytes # (1.0-4.8) k/uL PT (9.0-12.0) sec INR (<1.2) APTT (22.0-30.0) sec ABG pH 7.30 L 7.32 L (7.35-7.45) ABG pCO2 (35-45) mmHg ABG pO2 197 H 397 H 290 H (83-108) mmHg ABG HCO3 (21-25) mmol/L ABG Total CO2 (19-24) mmol/L ABG O2 Saturation 99.5 H 100.0 H 99.9 H (94-97) % ABG Hematocrit 25 L 25 L 23 L (34.0-46.0) % ABG Sodium (135-146) mmol/L ABG Potassium 5.6 H 4.6 H (3.4-4.5) mmol/L ABG Ionized Calcium 4.2 L 4.2 L 4.3 L (4.5-5.3) mg/dL ABG Glucose 175 H 142 H 144 H (75-99) mg/dL ABG Lactic Acid 2.1 H (0.5-1.6) mmol/L Hemoglobin 8.1 L 8.0 L 7.3 L (13.0-17.5) gm/dL Chloride (98-107) mmol/L BUN (9-20) mg/dL Glucose (74-99) mg/dL POC Glucose (mg/dL) (75-99) mg/dL Calcium (8.4-10.2) mg/dL Magnesium (1.6-2.3) mg/dL AST (17-59) U/L Total Protein (6.3-8.2) g/dL Albumin (3.5-5.0) g/dL Arterial Blood Potassium 5.6 H 4.6 H (3.4-4.5) mmol/L Arterial Blood Glucose 175 H 142 H 144 H (75-99) mg/dL Crossmatch 12/12/17 12/12/17 12/12/17 Range/Units 14:08 15:10 15:10 WBC (3.8-10.6) k/uL RBC 2.83 L (4.30-5.90) m/uL Hgb 8.4 L D (13.0-17.5) gm/dL Hct 25.6 L (39.0-53.0) % Plt Count 83 L D (150-450) k/uL Neutrophils # (1.3-7.7) k/uL Lymphocytes # (1.0-4.8) k/uL PT (9.0-12.0) sec INR (<1.2) APTT (22.0-30.0) sec ABG pH (7.35-7.45) ABG pCO2 (35-45) mmHg ABG pO2 70 L (83-108) mmHg ABG HCO3 (21-25) mmol/L ABG Total CO2 25 H (19-24) mmol/L ABG O2 Saturation (94-97) % ABG Hematocrit 30 L (34.0-46.0) % ABG Sodium (135-146) mmol/L ABG Potassium (3.4-4.5) mmol/L ABG Ionized Calcium 4.2 L (4.5-5.3) mg/dL ABG Glucose 117 H (75-99) mg/dL ABG Lactic Acid (0.5-1.6) mmol/L Hemoglobin 9.8 L (13.0-17.5) gm/dL Chloride 113 H (98-107) mmol/L BUN 8 L (9-20) mg/dL Glucose (74-99) mg/dL POC Glucose (mg/dL) (75-99) mg/dL Calcium 7.3 L (8.4-10.2) mg/dL Magnesium 2.6 H (1.6-2.3) mg/dL AST (17-59) U/L Total Protein 4.6 L (6.3-8.2) g/dL Albumin 3.1 L (3.5-5.0) g/dL Arterial Blood Potassium (3.4-4.5) mmol/L Arterial Blood Glucose 117 H (75-99) mg/dL Crossmatch 12/12/17 12/12/17 12/12/17 Range/Units 15:10 15:42 16:01 WBC (3.8-10.6) k/uL RBC (4.30-5.90) m/uL Hgb (13.0-17.5) gm/dL Hct (39.0-53.0) % Plt Count (150-450) k/uL Neutrophils # (1.3-7.7) k/uL Lymphocytes # (1.0-4.8) k/uL PT 13.1 H (9.0-12.0) sec INR 1.4 H (<1.2) APTT 31.9 H (22.0-30.0) sec ABG pH 7.22 L (7.35-7.45) ABG pCO2 58 H (35-45) mmHg ABG pO2 122 H (83-108) mmHg ABG HCO3 (21-25) mmol/L ABG Total CO2 26 H (19-24) mmol/L ABG O2 Saturation 98.4 H (94-97) % ABG Hematocrit (34.0-46.0) % ABG Sodium (135-146) mmol/L ABG Potassium (3.4-4.5) mmol/L ABG Ionized Calcium (4.5-5.3) mg/dL ABG Glucose (75-99) mg/dL ABG Lactic Acid (0.5-1.6) mmol/L Hemoglobin (13.0-17.5) gm/dL Chloride (98-107) mmol/L BUN (9-20) mg/dL Glucose (74-99) mg/dL POC Glucose (mg/dL) 114 H (75-99) mg/dL Calcium (8.4-10.2) mg/dL Magnesium (1.6-2.3) mg/dL AST (17-59) U/L Total Protein (6.3-8.2) g/dL Albumin (3.5-5.0) g/dL Arterial Blood Potassium (3.4-4.5) mmol/L Arterial Blood Glucose (75-99) mg/dL Crossmatch 12/12/17 12/12/17 12/12/17 Range/Units 16:57 17:15 18:07 WBC 10.8 H (3.8-10.6) k/uL RBC 2.93 L (4.30-5.90) m/uL Hgb 9.2 L (13.0-17.5) gm/dL Hct 26.6 L (39.0-53.0) % Plt Count 147 L D (150-450) k/uL Neutrophils # 9.5 H (1.3-7.7) k/uL Lymphocytes # (1.0-4.8) k/uL PT (9.0-12.0) sec INR (<1.2) APTT (22.0-30.0) sec ABG pH (7.35-7.45) ABG pCO2 (35-45) mmHg ABG pO2 (83-108) mmHg ABG HCO3 (21-25) mmol/L ABG Total CO2 (19-24) mmol/L ABG O2 Saturation (94-97) % ABG Hematocrit (34.0-46.0) % ABG Sodium (135-146) mmol/L ABG Potassium (3.4-4.5) mmol/L ABG Ionized Calcium (4.5-5.3) mg/dL ABG Glucose (75-99) mg/dL ABG Lactic Acid (0.5-1.6) mmol/L Hemoglobin (13.0-17.5) gm/dL Chloride (98-107) mmol/L BUN (9-20) mg/dL Glucose (74-99) mg/dL POC Glucose (mg/dL) 139 H 118 H (75-99) mg/dL Calcium (8.4-10.2) mg/dL Magnesium (1.6-2.3) mg/dL AST (17-59) U/L Total Protein (6.3-8.2) g/dL Albumin (3.5-5.0) g/dL Arterial Blood Potassium (3.4-4.5) mmol/L Arterial Blood Glucose (75-99) mg/dL Crossmatch 12/12/17 12/12/17 12/12/17 Range/Units 18:41 19:17 20:00 WBC (3.8-10.6) k/uL RBC (4.30-5.90) m/uL Hgb (13.0-17.5) gm/dL Hct (39.0-53.0) % Plt Count (150-450) k/uL Neutrophils # (1.3-7.7) k/uL Lymphocytes # (1.0-4.8) k/uL PT (9.0-12.0) sec INR (<1.2) APTT (22.0-30.0) sec ABG pH 7.34 L (7.35-7.45) ABG pCO2 (35-45) mmHg ABG pO2 114 H (83-108) mmHg ABG HCO3 (21-25) mmol/L ABG Total CO2 25 H (19-24) mmol/L ABG O2 Saturation 98.7 H (94-97) % ABG Hematocrit (34.0-46.0) % ABG Sodium (135-146) mmol/L ABG Potassium (3.4-4.5) mmol/L ABG Ionized Calcium (4.5-5.3) mg/dL ABG Glucose (75-99) mg/dL ABG Lactic Acid (0.5-1.6) mmol/L Hemoglobin (13.0-17.5) gm/dL Chloride (98-107) mmol/L BUN (9-20) mg/dL Glucose (74-99) mg/dL POC Glucose (mg/dL) 111 H 115 H (75-99) mg/dL Calcium (8.4-10.2) mg/dL Magnesium (1.6-2.3) mg/dL AST (17-59) U/L Total Protein (6.3-8.2) g/dL Albumin (3.5-5.0) g/dL Arterial Blood Potassium (3.4-4.5) mmol/L Arterial Blood Glucose (75-99) mg/dL Crossmatch 12/12/17 12/12/17 12/12/17 Range/Units 20:07 20:57 21:59 WBC 12.9 H (3.8-10.6) k/uL RBC 2.69 L (4.30-5.90) m/uL Hgb 8.5 L (13.0-17.5) gm/dL Hct 24.2 L (39.0-53.0) % Plt Count 132 L (150-450) k/uL Neutrophils # 11.9 H (1.3-7.7) k/uL Lymphocytes # 0.6 L (1.0-4.8) k/uL PT (9.0-12.0) sec INR (<1.2) APTT (22.0-30.0) sec ABG pH (7.35-7.45) ABG pCO2 (35-45) mmHg ABG pO2 (83-108) mmHg ABG HCO3 (21-25) mmol/L ABG Total CO2 (19-24) mmol/L ABG O2 Saturation (94-97) % ABG Hematocrit (34.0-46.0) % ABG Sodium (135-146) mmol/L ABG Potassium (3.4-4.5) mmol/L ABG Ionized Calcium (4.5-5.3) mg/dL ABG Glucose (75-99) mg/dL ABG Lactic Acid (0.5-1.6) mmol/L Hemoglobin (13.0-17.5) gm/dL Chloride (98-107) mmol/L BUN (9-20) mg/dL Glucose (74-99) mg/dL POC Glucose (mg/dL) 106 H 117 H (75-99) mg/dL Calcium (8.4-10.2) mg/dL Magnesium (1.6-2.3) mg/dL AST (17-59) U/L Total Protein (6.3-8.2) g/dL Albumin (3.5-5.0) g/dL Arterial Blood Potassium (3.4-4.5) mmol/L Arterial Blood Glucose (75-99) mg/dL Crossmatch 12/12/17 12/12/17 12/13/17 Range/Units 22:54 23:56 00:59 WBC (3.8-10.6) k/uL RBC (4.30-5.90) m/uL Hgb (13.0-17.5) gm/dL Hct (39.0-53.0) % Plt Count (150-450) k/uL Neutrophils # (1.3-7.7) k/uL Lymphocytes # (1.0-4.8) k/uL PT (9.0-12.0) sec INR (<1.2) APTT (22.0-30.0) sec ABG pH (7.35-7.45) ABG pCO2 (35-45) mmHg ABG pO2 (83-108) mmHg ABG HCO3 (21-25) mmol/L ABG Total CO2 (19-24) mmol/L ABG O2 Saturation (94-97) % ABG Hematocrit (34.0-46.0) % ABG Sodium (135-146) mmol/L ABG Potassium (3.4-4.5) mmol/L ABG Ionized Calcium (4.5-5.3) mg/dL ABG Glucose (75-99) mg/dL ABG Lactic Acid (0.5-1.6) mmol/L Hemoglobin (13.0-17.5) gm/dL Chloride (98-107) mmol/L BUN (9-20) mg/dL Glucose (74-99) mg/dL POC Glucose (mg/dL) 105 H 108 H 112 H (75-99) mg/dL Calcium (8.4-10.2) mg/dL Magnesium (1.6-2.3) mg/dL AST (17-59) U/L Total Protein (6.3-8.2) g/dL Albumin (3.5-5.0) g/dL Arterial Blood Potassium (3.4-4.5) mmol/L Arterial Blood Glucose (75-99) mg/dL Crossmatch 12/13/17 12/13/17 12/13/17 Range/Units 02:03 03:01 04:00 WBC 13.9 H (3.8-10.6) k/uL RBC 2.75 L (4.30-5.90) m/uL Hgb 8.4 L (13.0-17.5) gm/dL Hct 24.3 L (39.0-53.0) % Plt Count (150-450) k/uL Neutrophils # 12.5 H (1.3-7.7) k/uL Lymphocytes # (1.0-4.8) k/uL PT (9.0-12.0) sec INR (<1.2) APTT (22.0-30.0) sec ABG pH (7.35-7.45) ABG pCO2 (35-45) mmHg ABG pO2 (83-108) mmHg ABG HCO3 (21-25) mmol/L ABG Total CO2 (19-24) mmol/L ABG O2 Saturation (94-97) % ABG Hematocrit (34.0-46.0) % ABG Sodium (135-146) mmol/L ABG Potassium (3.4-4.5) mmol/L ABG Ionized Calcium (4.5-5.3) mg/dL ABG Glucose (75-99) mg/dL ABG Lactic Acid (0.5-1.6) mmol/L Hemoglobin (13.0-17.5) gm/dL Chloride (98-107) mmol/L BUN (9-20) mg/dL Glucose (74-99) mg/dL POC Glucose (mg/dL) 112 H 113 H (75-99) mg/dL Calcium (8.4-10.2) mg/dL Magnesium (1.6-2.3) mg/dL AST (17-59) U/L Total Protein (6.3-8.2) g/dL Albumin (3.5-5.0) g/dL Arterial Blood Potassium (3.4-4.5) mmol/L Arterial Blood Glucose (75-99) mg/dL Crossmatch 12/13/17 12/13/17 12/13/17 Range/Units 04:00 04:00 05:06 WBC (3.8-10.6) k/uL RBC (4.30-5.90) m/uL Hgb (13.0-17.5) gm/dL Hct (39.0-53.0) % Plt Count (150-450) k/uL Neutrophils # (1.3-7.7) k/uL Lymphocytes # (1.0-4.8) k/uL PT (9.0-12.0) sec INR (<1.2) APTT (22.0-30.0) sec ABG pH (7.35-7.45) ABG pCO2 (35-45) mmHg ABG pO2 (83-108) mmHg ABG HCO3 (21-25) mmol/L ABG Total CO2 (19-24) mmol/L ABG O2 Saturation (94-97) % ABG Hematocrit (34.0-46.0) % ABG Sodium (135-146) mmol/L ABG Potassium (3.4-4.5) mmol/L ABG Ionized Calcium (4.5-5.3) mg/dL ABG Glucose (75-99) mg/dL ABG Lactic Acid (0.5-1.6) mmol/L Hemoglobin (13.0-17.5) gm/dL Chloride (98-107) mmol/L BUN (9-20) mg/dL Glucose 106 H (74-99) mg/dL POC Glucose (mg/dL) 115 H 119 H (75-99) mg/dL Calcium 8.1 L (8.4-10.2) mg/dL Magnesium (1.6-2.3) mg/dL AST 70 H (17-59) U/L Total Protein 4.9 L (6.3-8.2) g/dL Albumin 3.3 L (3.5-5.0) g/dL Arterial Blood Potassium (3.4-4.5) mmol/L Arterial Blood Glucose (75-99) mg/dL Crossmatch 12/13/17 12/13/17 12/13/17 Range/Units 06:34 06:37 07:18 WBC (3.8-10.6) k/uL RBC (4.30-5.90) m/uL Hgb (13.0-17.5) gm/dL Hct (39.0-53.0) % Plt Count (150-450) k/uL Neutrophils # (1.3-7.7) k/uL Lymphocytes # (1.0-4.8) k/uL PT (9.0-12.0) sec INR (<1.2) APTT (22.0-30.0) sec ABG pH (7.35-7.45) ABG pCO2 (35-45) mmHg ABG pO2 (83-108) mmHg ABG HCO3 (21-25) mmol/L ABG Total CO2 (19-24) mmol/L ABG O2 Saturation (94-97) % ABG Hematocrit (34.0-46.0) % ABG Sodium (135-146) mmol/L ABG Potassium (3.4-4.5) mmol/L ABG Ionized Calcium (4.5-5.3) mg/dL ABG Glucose (75-99) mg/dL ABG Lactic Acid (0.5-1.6) mmol/L Hemoglobin (13.0-17.5) gm/dL Chloride (98-107) mmol/L BUN (9-20) mg/dL Glucose (74-99) mg/dL POC Glucose (mg/dL) 162 H 152 H 138 H (75-99) mg/dL Calcium (8.4-10.2) mg/dL Magnesium (1.6-2.3) mg/dL AST (17-59) U/L Total Protein (6.3-8.2) g/dL Albumin (3.5-5.0) g/dL Arterial Blood Potassium (3.4-4.5) mmol/L Arterial Blood Glucose (75-99) mg/dL Crossmatch 12/13/17 12/13/17 Range/Units 09:04 10:09 WBC (3.8-10.6) k/uL RBC (4.30-5.90) m/uL Hgb (13.0-17.5) gm/dL Hct (39.0-53.0) % Plt Count (150-450) k/uL Neutrophils # (1.3-7.7) k/uL Lymphocytes # (1.0-4.8) k/uL PT (9.0-12.0) sec INR (<1.2) APTT (22.0-30.0) sec ABG pH (7.35-7.45) ABG pCO2 (35-45) mmHg ABG pO2 (83-108) mmHg ABG HCO3 (21-25) mmol/L ABG Total CO2 (19-24) mmol/L ABG O2 Saturation (94-97) % ABG Hematocrit (34.0-46.0) % ABG Sodium (135-146) mmol/L ABG Potassium (3.4-4.5) mmol/L ABG Ionized Calcium (4.5-5.3) mg/dL ABG Glucose (75-99) mg/dL ABG Lactic Acid (0.5-1.6) mmol/L Hemoglobin (13.0-17.5) gm/dL Chloride (98-107) mmol/L BUN (9-20) mg/dL Glucose (74-99) mg/dL POC Glucose (mg/dL) 154 H 157 H (75-99) mg/dL Calcium (8.4-10.2) mg/dL Magnesium (1.6-2.3) mg/dL AST (17-59) U/L Total Protein (6.3-8.2) g/dL Albumin (3.5-5.0) g/dL Arterial Blood Potassium (3.4-4.5) mmol/L Arterial Blood Glucose (75-99) mg/dL Crossmatch Assessment and Plan Plan: This is a joint evaluation along with a nurse practitioner. The patient was extubated yesterday without any major difficulties. This morning the lungs are well expanded. There may be a small left apical pneumothorax. Chest tubes are all in place. Hemodynamically stable. No magistral distress. Using incentive spirometer. We'll continue to follow. The patient will be kept in ICU for another 24 hours.
[2017-12-13] MEDS: ONDANSETRON 4 MG/2 ML VIAL IVP PRN (09:16)
[2017-12-13 10:12] LABS: Glucose,Whole Blood 157 mg/dL (75-99)
--- NOTE | 2017-12-13 10:13 | P.PN ---
Subjective Progress Note Date: 12/13/17 Principal diagnosis: Coronary artery disease. Recent STEMI in October 2017, status post recent bare metal stent to the right coronary artery. LV dysfunction with EF 40-45% per echocardiogram done in October, improved to 50% on echocardiogram done in November preoperatively. History of hypertension, hyperlipidemia. Previous tobacco dependence with preoperative FEV1 and 2% of predicted. Family history of premature coronary artery disease with an aunt that at 30 from myocardial infarction. POD #1 coronary artery bypass grafting 3 vessels, left internal mammary artery to left anterior descending artery, reverse saphenous vein graft to high diagonal artery, reverse saphenous vein graft to obtuse marginal artery. Endoscopic vein harvest left greater saphenous vein. Epi-aortic ulcer. Intraoperative transesophageal echocardiogram. Patient is currently sitting up in a recliner in no acute distress. States pain is controlled on current medication regimen. Denies shortness of breath. Hemodynamically stable. Was successfully extubated and 19:02 last night. No new complaints. Objective - Vital Signs Vital signs: Vital Signs Temp 97.8 F 12/12/17 06:11 Pulse 103 H 12/13/17 07:33 Resp 18 12/13/17 07:33 BP 104/61 12/12/17 21:00 Pulse Ox 99 12/13/17 07:00 Intake & Output 12/12/17 12/13/17 12/13/17 18:59 06:59 18:59 Intake Total 739.090 2970.642 59 Output Total 3954 2196 120 Balance -3589.772 -837.358 -61 Weight 68 kg Intake: IV 90 758 59 CO/CI 30 100 Lactated Ringers 1,000 ml 550 50 @ 50 mls/hr IV .Q20H [facility] Rx#:[id number] Pressure Bag 27 108 9 Intake, IV Titration 274.228 100.642 Amount Clevidipine Butyrate 25 13.333 50.000 mg In Empty Bag 1 bag @ 1 MG/HR 2 mls/hr IV .Q24H [facility] Rx#:[id number] Insulin Regular 100 unit 1.145 0.642 In Sodium Chloride 0.9% 100 ml @ Per Protocol IV .Q0M [facility] Rx#:[id number] Lactated Ringers 1,000 ml 200 50 @ 50 mls/hr IV .Q20H [facility] Rx#:[id number] Propofol 1,000 mg In 9.75 Empty Bag 1 bag @ Titrate IV .Q0M [facility] Rx#: [id number] ceFAZolin 2,000 mg In 50 Sodium Chloride 0.9% 30 ml @ Per Protocol IVPB ONCE ONE Rx#:[id number] Oral 500 Output: Chest Tube Drainage [address] 67 74 0 Right & Left Medistinal [address] Urine 2067 1752 100 Estimated Blood Loss 1500 Other: Voiding Method Indwelling Catheter Indwelling Catheter ABP, PAP, CO, CI - Last Documented Arterial Blood Pressure 128/58 Pulmonary Artery Pressure 22/10 Cardiac Output 5.6 Cardiac Index 3.2 - Constitutional General appearance: Present: cooperative, no acute distress - Respiratory Details: Lungs sounds diminished bilaterally. Respirations even, nonlabored. Currently on 3 L nasal cannula with oxygen saturation 99%. Able to achieve 1250 mL on his incentive spirometry. Effective, productive cough. Mediastinal chest tube to continuous wall suction, 280 mL serosanguineous drainage overnight, 800 mL since surgery. Left pleural chest tube to continuous wall suction, 36 mL serosanguineous drainage overnight, 150 mL since surgery. No air leaks present. - Cardiovascular Details: S1, S2 present. Tachycardic but regular rate and rhythm, sinus tach on telemetry. Sternum stable. A/V epicardial pacemakers present, connected to generator, VVI mode with backup rate 60 bpm. Palpable peripheral pulses bilaterally. No edema present. No calf pain or tenderness noted. Right internal jugular Mason/Cordis, right radial arterial line present. Last CO/CI 5.6/3.2 on no inotropes. Heart hugger in place with patient demonstrating appropriate use. Antiembolism stockings, SCDs present. - Gastrointestinal Gastrointestinal Comment(s): Abdomen soft, nontender, nondistended. Hypoactive bowel sounds present 4 quadrants. Tolerating clear liquids. Positive belching, negative flatus. - Genitourinary Genitourinary Comment(s): Whitley present draining clear, yellow urine. Output 100-250 mL per hour overnight. - Integumentary Integumentary Comment(s): Skin is warm and dry with evidence of good perfusion. Anterior chest incision well approximated and covered with dry intact dressing. Left lower extremity EVH site well approximated. - Neurologic Neurologic: Present: CNII-XII intact - Musculoskeletal Musculoskeletal: Present: strength equal bilaterally - Psychiatric Psychiatric: Present: A&O x's 3, appropriate affect, intact judgment & insight - Allied health notes Allied health notes reviewed: nursing - Labs CBC & Chem 7: 12/13/17 04:00 12/13/17 04:00 Labs: Abnormal Lab Results - Last 24 Hours (Table) 12/05/17 12/12/17 12/12/17 Range/Units 16:35 10:39 11:41 WBC (3.8-10.6) k/uL RBC (4.30-5.90) m/uL Hgb (13.0-17.5) gm/dL Hct (39.0-53.0) % Plt Count (150-450) k/uL Neutrophils # (1.3-7.7) k/uL Lymphocytes # (1.0-4.8) k/uL PT (9.0-12.0) sec INR (<1.2) APTT (22.0-30.0) sec ABG pH 7.23 L (7.35-7.45) ABG pCO2 61 H (35-45) mmHg ABG pO2 229 H 281 H (83-108) mmHg ABG HCO3 26 H (21-25) mmol/L ABG Total CO2 28 H (19-24) mmol/L ABG O2 Saturation 99.3 H 100.0 H (94-97) % ABG Hematocrit 26 L (34.0-46.0) % ABG Sodium 129 L (135-146) mmol/L ABG Potassium 4.7 H 7.0 H* (3.4-4.5) mmol/L ABG Ionized Calcium 4.0 L (4.5-5.3) mg/dL ABG Glucose 124 H 232 H (75-99) mg/dL ABG Lactic Acid (0.5-1.6) mmol/L Hemoglobin 8.4 L (13.0-17.5) gm/dL Chloride (98-107) mmol/L BUN (9-20) mg/dL Glucose (74-99) mg/dL POC Glucose (mg/dL) (75-99) mg/dL Calcium (8.4-10.2) mg/dL Magnesium (1.6-2.3) mg/dL AST (17-59) U/L Total Protein (6.3-8.2) g/dL Albumin (3.5-5.0) g/dL Arterial Blood Potassium 4.7 H 7.0 H* (3.4-4.5) mmol/L Arterial Blood Glucose 124 H 232 H (75-99) mg/dL Crossmatch See Detail 12/12/17 12/12/17 12/12/17 Range/Units 12:12 12:48 13:18 WBC (3.8-10.6) k/uL RBC (4.30-5.90) m/uL Hgb (13.0-17.5) gm/dL Hct (39.0-53.0) % Plt Count (150-450) k/uL Neutrophils # (1.3-7.7) k/uL Lymphocytes # (1.0-4.8) k/uL PT (9.0-12.0) sec INR (<1.2) APTT (22.0-30.0) sec ABG pH 7.30 L 7.32 L (7.35-7.45) ABG pCO2 (35-45) mmHg ABG pO2 197 H 397 H 290 H (83-108) mmHg ABG HCO3 (21-25) mmol/L ABG Total CO2 (19-24) mmol/L ABG O2 Saturation 99.5 H 100.0 H 99.9 H (94-97) % ABG Hematocrit 25 L 25 L 23 L (34.0-46.0) % ABG Sodium (135-146) mmol/L ABG Potassium 5.6 H 4.6 H (3.4-4.5) mmol/L ABG Ionized Calcium 4.2 L 4.2 L 4.3 L (4.5-5.3) mg/dL ABG Glucose 175 H 142 H 144 H (75-99) mg/dL ABG Lactic Acid 2.1 H (0.5-1.6) mmol/L Hemoglobin 8.1 L 8.0 L 7.3 L (13.0-17.5) gm/dL Chloride (98-107) mmol/L BUN (9-20) mg/dL Glucose (74-99) mg/dL POC Glucose (mg/dL) (75-99) mg/dL Calcium (8.4-10.2) mg/dL Magnesium (1.6-2.3) mg/dL AST (17-59) U/L Total Protein (6.3-8.2) g/dL Albumin (3.5-5.0) g/dL Arterial Blood Potassium 5.6 H 4.6 H (3.4-4.5) mmol/L Arterial Blood Glucose 175 H 142 H 144 H (75-99) mg/dL Crossmatch 12/12/17 12/12/17 12/12/17 Range/Units 14:08 15:10 15:10 WBC (3.8-10.6) k/uL RBC 2.83 L (4.30-5.90) m/uL Hgb 8.4 L D (13.0-17.5) gm/dL Hct 25.6 L (39.0-53.0) % Plt Count 83 L D (150-450) k/uL Neutrophils # (1.3-7.7) k/uL Lymphocytes # (1.0-4.8) k/uL PT (9.0-12.0) sec INR (<1.2) APTT (22.0-30.0) sec ABG pH (7.35-7.45) ABG pCO2 (35-45) mmHg ABG pO2 70 L (83-108) mmHg ABG HCO3 (21-25) mmol/L ABG Total CO2 25 H (19-24) mmol/L ABG O2 Saturation (94-97) % ABG Hematocrit 30 L (34.0-46.0) % ABG Sodium (135-146) mmol/L ABG Potassium (3.4-4.5) mmol/L ABG Ionized Calcium 4.2 L (4.5-5.3) mg/dL ABG Glucose 117 H (75-99) mg/dL ABG Lactic Acid (0.5-1.6) mmol/L Hemoglobin 9.8 L (13.0-17.5) gm/dL Chloride 113 H (98-107) mmol/L BUN 8 L (9-20) mg/dL Glucose (74-99) mg/dL POC Glucose (mg/dL) (75-99) mg/dL Calcium 7.3 L (8.4-10.2) mg/dL Magnesium 2.6 H (1.6-2.3) mg/dL AST (17-59) U/L Total Protein 4.6 L (6.3-8.2) g/dL Albumin 3.1 L (3.5-5.0) g/dL Arterial Blood Potassium (3.4-4.5) mmol/L Arterial Blood Glucose 117 H (75-99) mg/dL Crossmatch 12/12/17 12/12/17 12/12/17 Range/Units 15:10 15:42 16:01 WBC (3.8-10.6) k/uL RBC (4.30-5.90) m/uL Hgb (13.0-17.5) gm/dL Hct (39.0-53.0) % Plt Count (150-450) k/uL Neutrophils # (1.3-7.7) k/uL Lymphocytes # (1.0-4.8) k/uL PT 13.1 H (9.0-12.0) sec INR 1.4 H (<1.2) APTT 31.9 H (22.0-30.0) sec ABG pH 7.22 L (7.35-7.45) ABG pCO2 58 H (35-45) mmHg ABG pO2 122 H (83-108) mmHg ABG HCO3 (21-25) mmol/L ABG Total CO2 26 H (19-24) mmol/L ABG O2 Saturation 98.4 H (94-97) % ABG Hematocrit (34.0-46.0) % ABG Sodium (135-146) mmol/L ABG Potassium (3.4-4.5) mmol/L ABG Ionized Calcium (4.5-5.3) mg/dL ABG Glucose (75-99) mg/dL ABG Lactic Acid (0.5-1.6) mmol/L Hemoglobin (13.0-17.5) gm/dL Chloride (98-107) mmol/L BUN (9-20) mg/dL Glucose (74-99) mg/dL POC Glucose (mg/dL) 114 H (75-99) mg/dL Calcium (8.4-10.2) mg/dL Magnesium (1.6-2.3) mg/dL AST (17-59) U/L Total Protein (6.3-8.2) g/dL Albumin (3.5-5.0) g/dL Arterial Blood Potassium (3.4-4.5) mmol/L Arterial Blood Glucose (75-99) mg/dL Crossmatch 12/12/17 12/12/17 12/12/17 Range/Units 16:57 17:15 18:07 WBC 10.8 H (3.8-10.6) k/uL RBC 2.93 L (4.30-5.90) m/uL Hgb 9.2 L (13.0-17.5) gm/dL Hct 26.6 L (39.0-53.0) % Plt Count 147 L D (150-450) k/uL Neutrophils # 9.5 H (1.3-7.7) k/uL Lymphocytes # (1.0-4.8) k/uL PT (9.0-12.0) sec INR (<1.2) APTT (22.0-30.0) sec ABG pH (7.35-7.45) ABG pCO2 (35-45) mmHg ABG pO2 (83-108) mmHg ABG HCO3 (21-25) mmol/L ABG Total CO2 (19-24) mmol/L ABG O2 Saturation (94-97) % ABG Hematocrit (34.0-46.0) % ABG Sodium (135-146) mmol/L ABG Potassium (3.4-4.5) mmol/L ABG Ionized Calcium (4.5-5.3) mg/dL ABG Glucose (75-99) mg/dL ABG Lactic Acid (0.5-1.6) mmol/L Hemoglobin (13.0-17.5) gm/dL Chloride (98-107) mmol/L BUN (9-20) mg/dL Glucose (74-99) mg/dL POC Glucose (mg/dL) 139 H 118 H (75-99) mg/dL Calcium (8.4-10.2) mg/dL Magnesium (1.6-2.3) mg/dL AST (17-59) U/L Total Protein (6.3-8.2) g/dL Albumin (3.5-5.0) g/dL Arterial Blood Potassium (3.4-4.5) mmol/L Arterial Blood Glucose (75-99) mg/dL Crossmatch 12/12/17 12/12/17 12/12/17 Range/Units 18:41 19:17 20:00 WBC (3.8-10.6) k/uL RBC (4.30-5.90) m/uL Hgb (13.0-17.5) gm/dL Hct (39.0-53.0) % Plt Count (150-450) k/uL Neutrophils # (1.3-7.7) k/uL Lymphocytes # (1.0-4.8) k/uL PT (9.0-12.0) sec INR (<1.2) APTT (22.0-30.0) sec ABG pH 7.34 L (7.35-7.45) ABG pCO2 (35-45) mmHg ABG pO2 114 H (83-108) mmHg ABG HCO3 (21-25) mmol/L ABG Total CO2 25 H (19-24) mmol/L ABG O2 Saturation 98.7 H (94-97) % ABG Hematocrit (34.0-46.0) % ABG Sodium (135-146) mmol/L ABG Potassium (3.4-4.5) mmol/L ABG Ionized Calcium (4.5-5.3) mg/dL ABG Glucose (75-99) mg/dL ABG Lactic Acid (0.5-1.6) mmol/L Hemoglobin (13.0-17.5) gm/dL Chloride (98-107) mmol/L BUN (9-20) mg/dL Glucose (74-99) mg/dL POC Glucose (mg/dL) 111 H 115 H (75-99) mg/dL Calcium (8.4-10.2) mg/dL Magnesium (1.6-2.3) mg/dL AST (17-59) U/L Total Protein (6.3-8.2) g/dL Albumin (3.5-5.0) g/dL Arterial Blood Potassium (3.4-4.5) mmol/L Arterial Blood Glucose (75-99) mg/dL Crossmatch 12/12/17 12/12/17 12/12/17 Range/Units 20:07 20:57 21:59 WBC 12.9 H (3.8-10.6) k/uL RBC 2.69 L (4.30-5.90) m/uL Hgb 8.5 L (13.0-17.5) gm/dL Hct 24.2 L (39.0-53.0) % Plt Count 132 L (150-450) k/uL Neutrophils # 11.9 H (1.3-7.7) k/uL Lymphocytes # 0.6 L (1.0-4.8) k/uL PT (9.0-12.0) sec INR (<1.2) APTT (22.0-30.0) sec ABG pH (7.35-7.45) ABG pCO2 (35-45) mmHg ABG pO2 (83-108) mmHg ABG HCO3 (21-25) mmol/L ABG Total CO2 (19-24) mmol/L ABG O2 Saturation (94-97) % ABG Hematocrit (34.0-46.0) % ABG Sodium (135-146) mmol/L ABG Potassium (3.4-4.5) mmol/L ABG Ionized Calcium (4.5-5.3) mg/dL ABG Glucose (75-99) mg/dL ABG Lactic Acid (0.5-1.6) mmol/L Hemoglobin (13.0-17.5) gm/dL Chloride (98-107) mmol/L BUN (9-20) mg/dL Glucose (74-99) mg/dL POC Glucose (mg/dL) 106 H 117 H (75-99) mg/dL Calcium (8.4-10.2) mg/dL Magnesium (1.6-2.3) mg/dL AST (17-59) U/L Total Protein (6.3-8.2) g/dL Albumin (3.5-5.0) g/dL Arterial Blood Potassium (3.4-4.5) mmol/L Arterial Blood Glucose (75-99) mg/dL Crossmatch 12/12/17 12/12/17 12/13/17 Range/Units 22:54 23:56 00:59 WBC (3.8-10.6) k/uL RBC (4.30-5.90) m/uL Hgb (13.0-17.5) gm/dL Hct (39.0-53.0) % Plt Count (150-450) k/uL Neutrophils # (1.3-7.7) k/uL Lymphocytes # (1.0-4.8) k/uL PT (9.0-12.0) sec INR (<1.2) APTT (22.0-30.0) sec ABG pH (7.35-7.45) ABG pCO2 (35-45) mmHg ABG pO2 (83-108) mmHg ABG HCO3 (21-25) mmol/L ABG Total CO2 (19-24) mmol/L ABG O2 Saturation (94-97) % ABG Hematocrit (34.0-46.0) % ABG Sodium (135-146) mmol/L ABG Potassium (3.4-4.5) mmol/L ABG Ionized Calcium (4.5-5.3) mg/dL ABG Glucose (75-99) mg/dL ABG Lactic Acid (0.5-1.6) mmol/L Hemoglobin (13.0-17.5) gm/dL Chloride (98-107) mmol/L BUN (9-20) mg/dL Glucose (74-99) mg/dL POC Glucose (mg/dL) 105 H 108 H 112 H (75-99) mg/dL Calcium (8.4-10.2) mg/dL Magnesium (1.6-2.3) mg/dL AST (17-59) U/L Total Protein (6.3-8.2) g/dL Albumin (3.5-5.0) g/dL Arterial Blood Potassium (3.4-4.5) mmol/L Arterial Blood Glucose (75-99) mg/dL Crossmatch 12/13/17 12/13/17 12/13/17 Range/Units 02:03 03:01 04:00 WBC 13.9 H (3.8-10.6) k/uL RBC 2.75 L (4.30-5.90) m/uL Hgb 8.4 L (13.0-17.5) gm/dL Hct 24.3 L (39.0-53.0) % Plt Count (150-450) k/uL Neutrophils # 12.5 H (1.3-7.7) k/uL Lymphocytes # (1.0-4.8) k/uL PT (9.0-12.0) sec INR (<1.2) APTT (22.0-30.0) sec ABG pH (7.35-7.45) ABG pCO2 (35-45) mmHg ABG pO2 (83-108) mmHg ABG HCO3 (21-25) mmol/L ABG Total CO2 (19-24) mmol/L ABG O2 Saturation (94-97) % ABG Hematocrit (34.0-46.0) % ABG Sodium (135-146) mmol/L ABG Potassium (3.4-4.5) mmol/L ABG Ionized Calcium (4.5-5.3) mg/dL ABG Glucose (75-99) mg/dL ABG Lactic Acid (0.5-1.6) mmol/L Hemoglobin (13.0-17.5) gm/dL Chloride (98-107) mmol/L BUN (9-20) mg/dL Glucose (74-99) mg/dL POC Glucose (mg/dL) 112 H 113 H (75-99) mg/dL Calcium (8.4-10.2) mg/dL Magnesium (1.6-2.3) mg/dL AST (17-59) U/L Total Protein (6.3-8.2) g/dL Albumin (3.5-5.0) g/dL Arterial Blood Potassium (3.4-4.5) mmol/L Arterial Blood Glucose (75-99) mg/dL Crossmatch 12/13/17 12/13/17 12/13/17 Range/Units 04:00 04:00 05:06 WBC (3.8-10.6) k/uL RBC (4.30-5.90) m/uL Hgb (13.0-17.5) gm/dL Hct (39.0-53.0) % Plt Count (150-450) k/uL Neutrophils # (1.3-7.7) k/uL Lymphocytes # (1.0-4.8) k/uL PT (9.0-12.0) sec INR (<1.2) APTT (22.0-30.0) sec ABG pH (7.35-7.45) ABG pCO2 (35-45) mmHg ABG pO2 (83-108) mmHg ABG HCO3 (21-25) mmol/L ABG Total CO2 (19-24) mmol/L ABG O2 Saturation (94-97) % ABG Hematocrit (34.0-46.0) % ABG Sodium (135-146) mmol/L ABG Potassium (3.4-4.5) mmol/L ABG Ionized Calcium (4.5-5.3) mg/dL ABG Glucose (75-99) mg/dL ABG Lactic Acid (0.5-1.6) mmol/L Hemoglobin (13.0-17.5) gm/dL Chloride (98-107) mmol/L BUN (9-20) mg/dL Glucose 106 H (74-99) mg/dL POC Glucose (mg/dL) 115 H 119 H (75-99) mg/dL Calcium 8.1 L (8.4-10.2) mg/dL Magnesium (1.6-2.3) mg/dL AST 70 H (17-59) U/L Total Protein 4.9 L (6.3-8.2) g/dL Albumin 3.3 L (3.5-5.0) g/dL Arterial Blood Potassium (3.4-4.5) mmol/L Arterial Blood Glucose (75-99) mg/dL Crossmatch 12/13/17 12/13/17 12/13/17 Range/Units 06:34 06:37 07:18 WBC (3.8-10.6) k/uL RBC (4.30-5.90) m/uL Hgb (13.0-17.5) gm/dL Hct (39.0-53.0) % Plt Count (150-450) k/uL Neutrophils # (1.3-7.7) k/uL Lymphocytes # (1.0-4.8) k/uL PT (9.0-12.0) sec INR (<1.2) APTT (22.0-30.0) sec ABG pH (7.35-7.45) ABG pCO2 (35-45) mmHg ABG pO2 (83-108) mmHg ABG HCO3 (21-25) mmol/L ABG Total CO2 (19-24) mmol/L ABG O2 Saturation (94-97) % ABG Hematocrit (34.0-46.0) % ABG Sodium (135-146) mmol/L ABG Potassium (3.4-4.5) mmol/L ABG Ionized Calcium (4.5-5.3) mg/dL ABG Glucose (75-99) mg/dL ABG Lactic Acid (0.5-1.6) mmol/L Hemoglobin (13.0-17.5) gm/dL Chloride (98-107) mmol/L BUN (9-20) mg/dL Glucose (74-99) mg/dL POC Glucose (mg/dL) 162 H 152 H 138 H (75-99) mg/dL Calcium (8.4-10.2) mg/dL Magnesium (1.6-2.3) mg/dL AST (17-59) U/L Total Protein (6.3-8.2) g/dL Albumin (3.5-5.0) g/dL Arterial Blood Potassium (3.4-4.5) mmol/L Arterial Blood Glucose (75-99) mg/dL Crossmatch 12/13/17 Range/Units 09:04 WBC (3.8-10.6) k/uL RBC (4.30-5.90) m/uL Hgb (13.0-17.5) gm/dL Hct (39.0-53.0) % Plt Count (150-450) k/uL Neutrophils # (1.3-7.7) k/uL Lymphocytes # (1.0-4.8) k/uL PT (9.0-12.0) sec INR (<1.2) APTT (22.0-30.0) sec ABG pH (7.35-7.45) ABG pCO2 (35-45) mmHg ABG pO2 (83-108) mmHg ABG HCO3 (21-25) mmol/L ABG Total CO2 (19-24) mmol/L ABG O2 Saturation (94-97) % ABG Hematocrit (34.0-46.0) % ABG Sodium (135-146) mmol/L ABG Potassium (3.4-4.5) mmol/L ABG Ionized Calcium (4.5-5.3) mg/dL ABG Glucose (75-99) mg/dL ABG Lactic Acid (0.5-1.6) mmol/L Hemoglobin (13.0-17.5) gm/dL Chloride (98-107) mmol/L BUN (9-20) mg/dL Glucose (74-99) mg/dL POC Glucose (mg/dL) 154 H (75-99) mg/dL Calcium (8.4-10.2) mg/dL Magnesium (1.6-2.3) mg/dL AST (17-59) U/L Total Protein (6.3-8.2) g/dL Albumin (3.5-5.0) g/dL Arterial Blood Potassium (3.4-4.5) mmol/L Arterial Blood Glucose (75-99) mg/dL Crossmatch - Imaging and Cardiology Chest x-ray: report reviewed, image reviewed Assessment and Plan (1) Coronary artery disease Current Visit: Yes Status: Chronic Code(s): I25.10 - ATHSCL HEART DISEASE OF [place] CORONARY ARTERY W/O ANG PCTRS SNOMED Code(s): 43458948 (2) Coronary arteriosclerosis in patient with history of previous myocardial infarction Current Visit: Yes Status: Chronic Code(s): I25.10 - ATHSCL HEART DISEASE OF [place] CORONARY ARTERY W/O ANG PCTRS; I25.2 - OLD MYOCARDIAL INFARCTION SNOMED Code(s): 054870911694207 (3) Family history of coronary artery disease occurring prior to 55 years of age Current Visit: Yes Status: Chronic Code(s): Z82.49 - FAMILY HX OF ISCHEM HEART DIS AND OTH DIS OF THE CIRC SYS SNOMED Code(s): 773751321 (4) Hyperlipidemia Current Visit: Yes Status: Chronic Code(s): E78.5 - HYPERLIPIDEMIA, UNSPECIFIED SNOMED Code(s): 47873647 (5) Hypertension Current Visit: Yes Status: Chronic Code(s): I10 - ESSENTIAL (PRIMARY) HYPERTENSION SNOMED Code(s): 20225832 (6) Tobacco dependence in remission Current Visit: No Status: Resolved Code(s): F17.201 - NICOTINE DEPENDENCE, UNSPECIFIED, IN REMISSION SNOMED Code(s): 632477302 Plan: 1. Continue aspirin, statin, Plavix, subcu heparin, beta rj. Lopressor increased to 25 mg twice daily. Will increase beta rj therapy as tolerated. Will add Oswaldo/ARB as blood pressure tolerates. 2. Wean O2 as tolerated. Encourage incentive spirometry use 10 times every hour. 3. Encourage continued smoking cessation. 4. Increase activity, ambulate in hallway. PT/OT/cardiac rehab following. 5. Will monitor daily labs, chest x-rays. 6. Pain medication with ordered regimen. 7. Bronchodilators per pulmonology. 8. GI/DVT prophylaxis. 9. Insulin management per primary care services. 10. More recommendations to follow. Time with Patient: Greater than 30
[2017-12-13] MEDS: LACTATED RINGERS 1,000 ML IV SCH (11:00)
[2017-12-13 11:27] LABS: Glucose,Whole Blood 134 mg/dL (75-99)
[2017-12-13 12:13] LABS: Glucose,Whole Blood 133 mg/dL (75-99)
[2017-12-13 13:06] LABS: Glucose,Whole Blood 133 mg/dL (75-99)
[2017-12-13] MEDS ORDERED: HYDROcodone/APAP 5-325MG 1 EACH TAB PO PRN ×2 (14:17)
[2017-12-13] MEDS ORDERED: MAGNESIUM HYDROXIDE 2,400 MG/10 ML CUP PO PRN (14:18)
[2017-12-13] MEDS ORDERED: BISACODYL 10 MG SUPP RECTAL PRN (14:18)
[2017-12-13] MEDS ORDERED: METOPROLOL TARTRATE 12.5 MG TAB PO SCH (14:18)
[2017-12-13 14:28] LABS: Glucose,Whole Blood 136 mg/dL (75-99)
[2017-12-13 14:45] VITALS: BMI 24.9
[2017-12-13 15:16] LABS: Glucose,Whole Blood 133 mg/dL (75-99)
[2017-12-13 16:06] LABS: Glucose,Whole Blood 144 mg/dL (75-99)
[2017-12-13 17:32] LABS: Glucose,Whole Blood 134 mg/dL (75-99)
[2017-12-13 18:14] LABS: Glucose,Whole Blood 142 mg/dL (75-99)
[2017-12-13 19:13] LABS: Glucose,Whole Blood 142 mg/dL (75-99)
[2017-12-13 20:04] LABS: Glucose,Whole Blood 141 mg/dL (75-99)
[2017-12-13] MEDS: SENNOSIDES-DOCUSATE SODIUM 1 EACH TAB PO SCH (20:16)
[2017-12-13 20:57] LABS: Glucose,Whole Blood 141 mg/dL (75-99)
[2017-12-13 23:11] LABS: Glucose,Whole Blood 137 mg/dL (75-99)
[2017-12-14 00:49] LABS: Glucose,Whole Blood 124 mg/dL (75-99)
[2017-12-14] MEDS: KETOROLAC 30 MG/ML 1 ML VIAL IVP SCH ×5 (00:50→23:37)
[2017-12-14 01:48] LABS: Glucose,Whole Blood 128 mg/dL (75-99)
[2017-12-14 03:28] LABS: Glucose,Whole Blood 121 mg/dL (75-99)
[2017-12-14 04:31] LABS: Glucose,Whole Blood 115 mg/dL (75-99)
[2017-12-14 05:26] LABS: Glucose,Whole Blood 106 mg/dL (75-99)
[2017-12-14 05:30] LABS: Basophils % (A) 0 %; Eosinophils # (A) 0.1 k/uL (0-0.7); Eosinophils % (A) 1 %; Lymphocytes # (A) 1.7 k/uL (1.0-4.8); Lymphocytes % (A) 19 %; MCH 31.8 pg (25.0-35.0); MCHC 35.7 g/dL (31.0-37.0); MCV 89.2 fL (80.0-100.0); Mean Platelet Volume 8.7; Monocytes # (A) 0.4 k/uL (0-1.0); Monocytes % (A) 4 %; Neutrophils % (A) 74 %; Platelet Count 113 k/uL (150-450); RBC 2.04 m/uL (4.30-5.90); RDW 13.4 % (11.5-15.5); WBC 9.4 k/uL (3.8-10.6)
[2017-12-14 05:31] LABS: Ionized Calcium 4.8 mg/dL (4.5-5.3)
[2017-12-14 05:35] LABS: HCT 18.2 % (39.0-53.0); HGB 6.5 gm/dL (13.0-17.5)
[2017-12-14 05:41] LABS: ALT 35 U/L (21-72); AST 55 U/L (17-59); Albumin 2.7 g/dL (3.5-5.0); Alkaline Phosphatase 41 U/L (38-126); Anion Gap 3 mmol/L; Blood Urea Nitrogen 20 mg/dL (9-20); Calcium 7.8 mg/dL (8.4-10.2); Carbon Dioxide 29 mmol/L (22-30); Chloride 103 mmol/L (98-107); Glucose 99 mg/dL (74-99); Magnesium 2.4 mg/dL (1.6-2.3); Potassium 4.3 mmol/L (3.5-5.1); Sodium 135 mmol/L (137-145); Total Bilirubin 0.4 mg/dL (0.2-1.3); Total Protein 4.4 g/dL (6.3-8.2)
[2017-12-14 06:01] LABS: Basophils % (A) 0 %; Eosinophils # (A) 0.2 k/uL (0-0.7); Eosinophils % (A) 2 %; HCT 17.8 % (39.0-53.0); HGB 6.3 gm/dL (13.0-17.5); Lymphocytes # (A) 1.7 k/uL (1.0-4.8); Lymphocytes % (A) 19 %; MCH 31.4 pg (25.0-35.0); MCHC 35.2 g/dL (31.0-37.0); MCV 89.2 fL (80.0-100.0); Mean Platelet Volume 7.6; Monocytes # (A) 0.3 k/uL (0-1.0); Monocytes % (A) 4 %; Neutrophils # (A) 6.7 k/uL (1.3-7.7); Neutrophils % (A) 74 %; Platelet Count 109 k/uL (150-450); RDW 13.1 % (11.5-15.5)
[2017-12-14 06:54] LABS: Glucose,Whole Blood 112 mg/dL (75-99)
[2017-12-14] MEDS: IPRATROPIUM-ALBUTEROL 3 ML NEB INHALATION SCH ×4 (07:05→19:56)
--- NOTE | 2017-12-14 07:25 | XR ---
EXAMINATION TYPE: XR chest 1V portable DATE OF EXAM: 12/14/2017 COMPARISON: 12/13/2017 INDICATION: Pneumothorax TECHNIQUE: Single frontal view of the chest is obtained. FINDINGS: The heart size is normal. The pulmonary vasculature is normal. The lungs are clear. Previous left pneumothorax is not evident. Left-sided chest tube remains in position. 2 mediastinal t ubes are present. Sternotomy wires from CABG are present. Sheath is present on the right. The Rupert-Ga nz catheter has been removed. IMPRESSION: 1. Lines and catheters remain in position. Pneumothorax is not evident on the current examination.
[2017-12-14] MEDS ORDERED: PANTOPRAZOLE 40 MG TABLET PO SCH (07:30)
[2017-12-14 07:45] LABS: Glucose,Whole Blood 135 mg/dL (75-99)
[2017-12-14 07:47] LABS: Basophils % (A) 0 %; Eosinophils # (A) 0.2 k/uL (0-0.7); Eosinophils % (A) 1 %; Lymphocytes # (A) 1.6 k/uL (1.0-4.8); Lymphocytes % (A) 15 %; MCH 30.1 pg (25.0-35.0); MCHC 33.7 g/dL (31.0-37.0); MCV 89.2 fL (80.0-100.0); Mean Platelet Volume 8.2; Monocytes # (A) 0.4 k/uL (0-1.0); Monocytes % (A) 4 %; Neutrophils # (A) 8.4 k/uL (1.3-7.7); Neutrophils % (A) 79 %; Platelet Count 132 k/uL (150-450); RBC 2.14 m/uL (4.30-5.90); WBC 10.6 k/uL (3.8-10.6)
[2017-12-14] MEDS: HEPARIN SODIUM,PORCINE 5,000 UNIT/ML 1 ML VIAL SQ SCH ×3 (08:00→22:38)
[2017-12-14] MEDS: MUPIROCIN 2% OINT 22 GM TUBE NASAL SCH ×2 (08:00→21:37)
[2017-12-14] MEDS: FERROUS SULFATE 325 MG TAB PO SCH (08:00)
[2017-12-14] MEDS: METOPROLOL TARTRATE 25 MG TAB PO SCH ×2 (08:00→21:26)
[2017-12-14] MEDS: ASPIRIN 325 MG TAB PO SCH (08:00)
[2017-12-14] MEDS: ASCORBIC ACID 500 MG TAB PO SCH (08:00)
[2017-12-14] MEDS: CLOPIDOGREL 75 MG TAB PO SCH (08:01)
[2017-12-14] MEDS: ATORVASTATIN 40 MG TAB PO SCH (08:01)
[2017-12-14 08:16] LABS: HCT 19.1 % (39.0-53.0); HGB 6.4 gm/dL (13.0-17.5)
--- NOTE | 2017-12-14 08:55 | PN ---
PROGRESS NOTE Mr. Cruz is a 47-year-old male with a history of coronary artery disease who underwent coronary artery bypass grafting. He is awake, alert, feels better, sitting up in the chair, denying any symptoms of chest pain. His soreness has improved. His breathing has improved. He continues to be in sinus mechanism. He denies any dizziness or palpitation. He is doing better with the incentive spirometry. He continues to be at this time on aspirin once a day, Plavix 75 mg daily, metoprolol tartrate 25 mg twice a day, Lipitor 40 mg daily. PHYSICAL EXAMINATION: Blood pressure 112/60 with a heart rate in the 90s. LUNGS: Clear with a few crackles at the bases. HEART: Regular rate and rhythm. S1, S2. No S3 with a rub appreciated. ABDOMEN: Soft and nontender. EXTREMITIES: No significant edema. LAB DATA: Hemoglobin of 6.3. Chest x-ray shows no infiltrate. IMPRESSION: 1. Status post coronary artery bypass grafting, stable. 2. Prior history of myocardial infarction. 3. Ischemic cardiomyopathy. 4. Hyperlipidemia. 5. Prior history of smoking. RECOMMENDATION: Will continue to follow his blood pressure, stable. I will re-initiate the treatment with an angiotensin receptor rj. Continue to increase his level of activity. Continue incentive spirometry and depending on his progress, further recommendation will be made. MMODL / IJN: [id number] /
--- NOTE | 2017-12-14 09:19 | P.PN ---
Subjective Progress Note Date: 12/14/17 Principal diagnosis: Current artery disease, status post three-vessel CABG, postop day 2 Mr. Cruz is a 47-year-old white male patient, who we saw in consultation on 10/25/2017 during his admission for acute ST elevated inferior wall CO, related to critical right coronary artery stenosis, status post PTCA and stenting. Patient was experiencing substernal chest pain and heaviness in bilateral arms at rest. Patient underwent cardiac catheterization, he was found to have acute total occlusion of the distal RCA with intermediate to severe disease involving the distal left main coronary artery. He underwent successful stenting of the distal RCA, he was started on dual antiplatelet therapy in the form of Plavix and aspirin, patient was recommended surgical intervention for his left main stenosis, to which he agreed. Echocardiogram showed impaired left ventricle systolic function with an EF between 40-45%, trace mitral and trace tricuspid regurgitation, no pulmonary hypertension. Preop pulmonary function tests reveal an FEV1 of 3.13 L or 92% of predicted, mild obstruction. Patient recently quit smoking, 3 months ago, prior to that he smoked 1-1/2 packs per day for 34 years. 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 Other medical history includes hypertension. Today he is seen in the intensive care, sedated, on mechanical ventilation, status post three-vessel coronary artery bypass grafting, VALENTINE to LAD, SVG to the Obtuse Marginal, and Ramus, with endoscopic vein harvesting of the left leg. Current vent settings include assist control mode with a rate of 12, tidal volume of 450 , FiO2 100% and PEEP of 5. Blood gases are pending, chest x-ray was completed, and showed trace pleural effusions, and some hazy right mid and lower lung densities probably representing atelectasis. Maintenance IV fluids include LR at 50 ml/hr, nitroglycerin on hold, Diprivan at 25mcg/kg/min, Clevidipine at 6 mg/hr. patient received 300 mL of Cell Saver, 2500 of crystalloids, and 1 L of albumin Intra-Op. EBL was 1500 mL. Lung sounds are clear to auscultation, patient is sinus rhythm with a rate of 95, AV epicardial wires are present. External pacemaker with a backup rate, not connected. PA pressure 32/17, CVP is 10, cardiac output and index is 5.8 and 3.3 respectively. Indwelling catheter is in place, patient is nonoliguric. Mediastinal chest tube with 200 mL of sanguinous output, left pleural chest tube with 40 mL of sanguinous output. Midsternal incision is clean dry and intact, covered with surgical dressing, bilateral lower extremities are oswaldo-wrapped. SCDs were applied. On 12/14/2017 patient seen in follow-up in intensive care unit, he is awake alert, on room air, pulse ox is 94%, febrile, hemodynamically stable, maintenance IV fluids is LR at a rate of 20, insulin drip is infusing at 0.5 units per hour, no other drips. PA catheter has been discontinued, blood pressure is 124/43, patient is in sinus rhythm, with a rate of 98-100 bpm, his pain is reasonably controlled, he is compliant with his incentive spirometry, denies shortness of breath. His chest x-ray has been reviewed and shows resolution of the left pneumothorax. Mediastinal and left pleural chest tube are draining small amount of serosanguineous drainage, thoracic surgery is planned and on removing those today. His labs were noted, Inna BCs 10.6, hemoglobin 6.4, and patient is receiving a unit of packed red blood cells, platelet count is 132, sodium is 135, the rest of the electrolytes and renal profile are within normal limits. AV wires are in place, external pacemaker with a backup rate, not connected. Midsternal incision, chest tube sites, and left leg incisions are clean dry and intact. Objective - Vital Signs Vital signs: Vital Signs Temp 98.1 F 12/14/17 08:50 Pulse 100 12/14/17 08:50 Resp 18 12/14/17 08:50 BP 124/43 12/14/17 08:50 Pulse Ox 94 L 12/14/17 08:50 Intake & Output 12/13/17 12/14/17 12/14/17 18:59 06:59 18:59 Intake Total 1080.783 344.925 26 Output Total 778 1357 75 Balance 302.783 -1012.075 -49 Weight 68 kg 68.3 kg Intake: IV 454 338 26 CO/CI 10 Lactated Ringers 1,000 ml 360 260 20 @ 20 mls/hr IV .Q24H [facility] Rx#:[id number] Pressure Bag 84 78 6 Intake, IV Titration 226.783 6.925 Amount ACETAMINOPHEN IV (For NPO 100 ) 1,000 mg In Empty Bag 1 bag @ 400 mls/hr IVPB Q6HR [facility] Rx#:[id number] Clevidipine Butyrate 25 15.333 mg In Empty Bag 1 bag @ 1 MG/HR 2 mls/hr IV .Q24H [facility] Rx#:[id number] Insulin Regular 100 unit 11.450 6.925 In Sodium Chloride 0.9% 100 ml @ Per Protocol IV .Q0M [facility] Rx#:[id number] Magnesium Sulfate-D5w Pmx 100 1 gm In Dextrose/Water 1 100ml.bag @ 100 mls/hr IVPB Q1H [facility] Rx#: [id number] Oral 400 Blood Product 0 Rc As-1 Unit 0 [id number] Output: Chest Tube Drainage 239 [address] 39 7 20 Right & Left Medistinal [address] Urine 539 1280 35 Other: Voiding Method Indwelling Catheter Indwelling Catheter Indwelling Catheter ABP, PAP, CO, CI - Last Documented Arterial Blood Pressure 112/36 Pulmonary Artery Pressure 48/25 Cardiac Output 5.6 Cardiac Index 3.2 - Exam GENERAL EXAM: 47-year-old white male, awake, alert, oriented 3,, comfortable in no apparent distress. HEAD: Normocephalic/atraumatic. EYES: Normal reaction of pupils, equal size. Conjunctiva pink, sclera white. NOSE: Clear with pink turbinates. THROAT: No erythema or exudates. NECK: No masses, no JVD, no thyroid enlargement, no adenopathy. Right IJ Cordis and PA catheter are present. CHEST: No chest wall deformity. Symmetrical expansion. Midsternal incision is clean dry and intact, 1 mediastinal and left pleural chest tubes with sanguinous output, chest tubes connected to wall suction. AV epicardial wires are in place LUNGS: Equal air entry with no crackles, wheeze, rhonchi or dullness. CVS: Regular rate and rhythm, normal S1 and S2, no gallops, no murmurs, no rubs ABDOMEN: Soft, nontender. No hepatosplenomegaly, normal bowel sounds, no guarding or rigidity. EXTREMITIES: No clubbing, no edema, no cyanosis, 2+ pulses and upper and lower extremities. Left leg incisions covered with surgical dressings, and Oswaldo wrap, SCDs are present on bilateral legs MUSCULOSKELETAL: Muscle strength and tone normal. SPINE: No scoliosis or deformity SKIN: No rashes CENTRAL NERVOUS SYSTEM: No focal neurological deficits - Labs CBC & Chem 7: 12/14/17 07:32 12/14/17 04:20 Labs: Abnormal Lab Results - Last 24 Hours (Table) 12/05/17 12/13/17 12/13/17 Range/Units 16:35 10:09 11:24 RBC (4.30-5.90) m/uL Hgb (13.0-17.5) gm/dL Hct (39.0-53.0) % Plt Count (150-450) k/uL Neutrophils # (1.3-7.7) k/uL Sodium (137-145) mmol/L POC Glucose (mg/dL) 157 H 134 H (75-99) mg/dL Calcium (8.4-10.2) mg/dL Magnesium (1.6-2.3) mg/dL Total Protein (6.3-8.2) g/dL Albumin (3.5-5.0) g/dL Crossmatch See Detail 12/13/17 12/13/17 12/13/17 Range/Units 12:03 13:04 14:26 RBC (4.30-5.90) m/uL Hgb (13.0-17.5) gm/dL Hct (39.0-53.0) % Plt Count (150-450) k/uL Neutrophils # (1.3-7.7) k/uL Sodium (137-145) mmol/L POC Glucose (mg/dL) 133 H 133 H 136 H (75-99) mg/dL Calcium (8.4-10.2) mg/dL Magnesium (1.6-2.3) mg/dL Total Protein (6.3-8.2) g/dL Albumin (3.5-5.0) g/dL Crossmatch 12/13/17 12/13/17 12/13/17 Range/Units 15:12 16:04 17:27 RBC (4.30-5.90) m/uL Hgb (13.0-17.5) gm/dL Hct (39.0-53.0) % Plt Count (150-450) k/uL Neutrophils # (1.3-7.7) k/uL Sodium (137-145) mmol/L POC Glucose (mg/dL) 133 H 144 H 134 H (75-99) mg/dL Calcium (8.4-10.2) mg/dL Magnesium (1.6-2.3) mg/dL Total Protein (6.3-8.2) g/dL Albumin (3.5-5.0) g/dL Crossmatch 12/13/17 12/13/17 12/13/17 Range/Units 18:12 19:10 20:03 RBC (4.30-5.90) m/uL Hgb (13.0-17.5) gm/dL Hct (39.0-53.0) % Plt Count (150-450) k/uL Neutrophils # (1.3-7.7) k/uL Sodium (137-145) mmol/L POC Glucose (mg/dL) 142 H 142 H 141 H (75-99) mg/dL Calcium (8.4-10.2) mg/dL Magnesium (1.6-2.3) mg/dL Total Protein (6.3-8.2) g/dL Albumin (3.5-5.0) g/dL Crossmatch 12/13/17 12/13/17 12/14/17 Range/Units 20:56 23:10 00:47 RBC (4.30-5.90) m/uL Hgb (13.0-17.5) gm/dL Hct (39.0-53.0) % Plt Count (150-450) k/uL Neutrophils # (1.3-7.7) k/uL Sodium (137-145) mmol/L POC Glucose (mg/dL) 141 H 137 H 124 H (75-99) mg/dL Calcium (8.4-10.2) mg/dL Magnesium (1.6-2.3) mg/dL Total Protein (6.3-8.2) g/dL Albumin (3.5-5.0) g/dL Crossmatch 12/14/17 12/14/17 12/14/17 Range/Units 01:46 03:27 04:20 RBC (4.30-5.90) m/uL Hgb (13.0-17.5) gm/dL Hct (39.0-53.0) % Plt Count (150-450) k/uL Neutrophils # (1.3-7.7) k/uL Sodium 135 L (137-145) mmol/L POC Glucose (mg/dL) 128 H 121 H (75-99) mg/dL Calcium 7.8 L (8.4-10.2) mg/dL Magnesium 2.4 H (1.6-2.3) mg/dL Total Protein 4.4 L (6.3-8.2) g/dL Albumin 2.7 L (3.5-5.0) g/dL Crossmatch 12/14/17 12/14/17 12/14/17 Range/Units 04:20 04:29 05:24 RBC 2.04 L (4.30-5.90) m/uL Hgb 6.5 L* D (13.0-17.5) gm/dL Hct 18.2 L* (39.0-53.0) % Plt Count 113 L (150-450) k/uL Neutrophils # (1.3-7.7) k/uL Sodium (137-145) mmol/L POC Glucose (mg/dL) 115 H 106 H (75-99) mg/dL Calcium (8.4-10.2) mg/dL Magnesium (1.6-2.3) mg/dL Total Protein (6.3-8.2) g/dL Albumin (3.5-5.0) g/dL Crossmatch 12/14/17 12/14/17 12/14/17 Range/Units 05:44 06:52 07:32 RBC 2.00 L 2.14 L (4.30-5.90) m/uL Hgb 6.3 L* 6.4 L* (13.0-17.5) gm/dL Hct 17.8 L* 19.1 L* (39.0-53.0) % Plt Count 109 L 132 L (150-450) k/uL Neutrophils # 8.4 H (1.3-7.7) k/uL Sodium (137-145) mmol/L POC Glucose (mg/dL) 112 H (75-99) mg/dL Calcium (8.4-10.2) mg/dL Magnesium (1.6-2.3) mg/dL Total Protein (6.3-8.2) g/dL Albumin (3.5-5.0) g/dL Crossmatch 12/14/17 Range/Units 07:43 RBC (4.30-5.90) m/uL Hgb (13.0-17.5) gm/dL Hct (39.0-53.0) % Plt Count (150-450) k/uL Neutrophils # (1.3-7.7) k/uL Sodium (137-145) mmol/L POC Glucose (mg/dL) 135 H (75-99) mg/dL Calcium (8.4-10.2) mg/dL Magnesium (1.6-2.3) mg/dL Total Protein (6.3-8.2) g/dL Albumin (3.5-5.0) g/dL Crossmatch Assessment and Plan Plan: Assessment: #1. Coronary artery disease, status post three-vessel bypass grafting, with VALENTINE to LAD, SVG to the OM, and Ramus, with endoscopic left leg harvesting, post -op day 2 #2. Postoperative ventilator management #3. Recent hospitalization for acute inferior wall CO, with PTCA and stenting of the RCA from 10/25/2017 through 10/31/2017 #4. History of nicotine dependence, currently in remission, patient smoked one half packs a day for 34 years #5. Ischemic cardiomyopathy, impaired left ventricle systolic function with an EF between 40-45% #6. Hypertension Plan: Continue encouraging incentive spirometry use, ambulation, deep breathing and coughing. Today's chest x-ray has been reviewed, shows resolution of left pneumothorax, chest tube discontinuation today per CT surgery, he is hemodynamically stable, receiving a unit of blood. Continue to closely follow, patient will probably transfer out to selective care unit today. I performed a history & physical examination of the patient and discussed their management with my nurse practitioner, Gely Leblanc. I reviewed the nurse practitioner's note and agree with the documented findings and plan of care. Lung sounds are positive for clear lung sounds. The findings and the impression was discussed with the patient. I attest to the documentation by the nurse practitioner. Time with Patient: Greater than 30
[2017-12-14 09:22] LABS: Glucose,Whole Blood 153 mg/dL (75-99)
--- NOTE | 2017-12-14 10:15 | P.PN ---
Subjective Progress Note Date: 12/14/17 (delayed charting patient seen at 0745) Principal diagnosis: Chest pain Patient is a 47-year-old male with a past medical history of ST segment elevated myocardial infarction with stent to the RCA 10/25/2017 with known multivessel coronary artery disease, ischemic cardiomyopathy with ejection fraction 40-45%, hypertension, and dyslipidemia who presented for triple vessel bypass. On the morning of 12/12/17 he underwent triple vessel bypass grafting with Dr. Brown. He had a VALENTINE to LAD, SVG to obtuse marginal and SVG- high diag with endoscopic vein harvesting of the left leg. Intraoperatively he received 300 ml of Cell Saver, 2500 mL of crystalloid, and 1 L of albumin. His EBL was 1500. He was admitted to the ICU on the ventilator and was extubated 4 hours later. 12/13 awake, alert, and sitting in chair. Patient seen and examined at bedside with and ICU nurse present. Patient states last night well. He denies any overt chest pain. He complains that it is still difficult to take a deep breath, but states he does not feel short of breath. No nausea and she was able to tolerate a good amount of his breakfast this morning. No bowel movement yesterday. No other complaints at this time. Objective - Vital Signs Vital signs: Vital Signs Temp 98.1 F 12/14/17 08:50 Pulse 101 H 12/14/17 09:00 Resp 18 12/14/17 09:00 BP 124/43 12/14/17 08:50 Pulse Ox 90 L 12/14/17 09:00 Intake & Output 12/13/17 12/14/17 12/14/17 18:59 06:59 18:59 Intake Total 1080.783 344.925 78 Output Total 778 1357 185 Balance 302.783 -1012.075 -107 Weight 68 kg 68.3 kg Intake: IV 454 338 78 CO/CI 10 Lactated Ringers 1,000 ml 360 260 60 @ 20 mls/hr IV .Q24H [facility] Rx#:[id number] Pressure Bag 84 78 18 Intake, IV Titration 226.783 6.925 Amount ACETAMINOPHEN IV (For NPO 100 ) 1,000 mg In Empty Bag 1 bag @ 400 mls/hr IVPB Q6HR [facility] Rx#:[id number] Clevidipine Butyrate 25 15.333 mg In Empty Bag 1 bag @ 1 MG/HR 2 mls/hr IV .Q24H [facility] Rx#:[id number] Insulin Regular 100 unit 11.450 6.925 In Sodium Chloride 0.9% 100 ml @ Per Protocol IV .Q0M [facility] Rx#:[id number] Magnesium Sulfate-D5w Pmx 100 1 gm In Dextrose/Water 1 100ml.bag @ 100 mls/hr IVPB Q1H [facility] Rx#: [id number] Oral 400 Blood Product 0 Rc As-1 Unit 0 [id number] Output: Chest Tube Drainage 239 [address] 39 7 20 Right & Left Medistinal [address] Urine 539 1280 145 Other: Voiding Method Indwelling Catheter Indwelling Catheter Indwelling Catheter ABP, PAP, CO, CI - Last Documented Arterial Blood Pressure 117/41 Pulmonary Artery Pressure 48/25 Cardiac Output 5.6 Cardiac Index 3.2 - Exam General: ill appearing, no distress, appears at stated age Derm: warm, dry, dressing in place over chest wall Head: atraumatic, normocephalic, symmetric Eyes: EOMI, no lid lag, anicteric sclera Mouth: no lip lesion, mucus membranes moist Cardiovascular: S1S2 reg, no murmur, positive posterior tibial pulse bilateral, + mediastinal tube Lungs: decreased bs b/l without wheeze, no rhonchi, no rales , no accessory muscle use, +chest tube Abdominal: soft, nontender to palpation, no guarding, no appreciable organomegaly Ext: no gross muscle atrophy, no edema, no contractures Neuro: CN II-XI grossly intact, no focal neuro deficits Psych: Alert, oriented, appropriate affect - Labs CBC & Chem 7: 12/14/17 07:32 12/14/17 04:20 Labs: Abnormal Lab Results - Last 24 Hours (Table) 12/05/17 12/13/17 12/13/17 Range/Units 16:35 10:09 11:24 RBC (4.30-5.90) m/uL Hgb (13.0-17.5) gm/dL Hct (39.0-53.0) % Plt Count (150-450) k/uL Neutrophils # (1.3-7.7) k/uL Sodium (137-145) mmol/L POC Glucose (mg/dL) 157 H 134 H (75-99) mg/dL Calcium (8.4-10.2) mg/dL Magnesium (1.6-2.3) mg/dL Total Protein (6.3-8.2) g/dL Albumin (3.5-5.0) g/dL Crossmatch See Detail 12/13/17 12/13/17 12/13/17 Range/Units 12:03 13:04 14:26 RBC (4.30-5.90) m/uL Hgb (13.0-17.5) gm/dL Hct (39.0-53.0) % Plt Count (150-450) k/uL Neutrophils # (1.3-7.7) k/uL Sodium (137-145) mmol/L POC Glucose (mg/dL) 133 H 133 H 136 H (75-99) mg/dL Calcium (8.4-10.2) mg/dL Magnesium (1.6-2.3) mg/dL Total Protein (6.3-8.2) g/dL Albumin (3.5-5.0) g/dL Crossmatch 12/13/17 12/13/17 12/13/17 Range/Units 15:12 16:04 17:27 RBC (4.30-5.90) m/uL Hgb (13.0-17.5) gm/dL Hct (39.0-53.0) % Plt Count (150-450) k/uL Neutrophils # (1.3-7.7) k/uL Sodium (137-145) mmol/L POC Glucose (mg/dL) 133 H 144 H 134 H (75-99) mg/dL Calcium (8.4-10.2) mg/dL Magnesium (1.6-2.3) mg/dL Total Protein (6.3-8.2) g/dL Albumin (3.5-5.0) g/dL Crossmatch 12/13/17 12/13/17 12/13/17 Range/Units 18:12 19:10 20:03 RBC (4.30-5.90) m/uL Hgb (13.0-17.5) gm/dL Hct (39.0-53.0) % Plt Count (150-450) k/uL Neutrophils # (1.3-7.7) k/uL Sodium (137-145) mmol/L POC Glucose (mg/dL) 142 H 142 H 141 H (75-99) mg/dL Calcium (8.4-10.2) mg/dL Magnesium (1.6-2.3) mg/dL Total Protein (6.3-8.2) g/dL Albumin (3.5-5.0) g/dL Crossmatch 12/13/17 12/13/17 12/14/17 Range/Units 20:56 23:10 00:47 RBC (4.30-5.90) m/uL Hgb (13.0-17.5) gm/dL Hct (39.0-53.0) % Plt Count (150-450) k/uL Neutrophils # (1.3-7.7) k/uL Sodium (137-145) mmol/L POC Glucose (mg/dL) 141 H 137 H 124 H (75-99) mg/dL Calcium (8.4-10.2) mg/dL Magnesium (1.6-2.3) mg/dL Total Protein (6.3-8.2) g/dL Albumin (3.5-5.0) g/dL Crossmatch 12/14/17 12/14/17 12/14/17 Range/Units 01:46 03:27 04:20 RBC (4.30-5.90) m/uL Hgb (13.0-17.5) gm/dL Hct (39.0-53.0) % Plt Count (150-450) k/uL Neutrophils # (1.3-7.7) k/uL Sodium 135 L (137-145) mmol/L POC Glucose (mg/dL) 128 H 121 H (75-99) mg/dL Calcium 7.8 L (8.4-10.2) mg/dL Magnesium 2.4 H (1.6-2.3) mg/dL Total Protein 4.4 L (6.3-8.2) g/dL Albumin 2.7 L (3.5-5.0) g/dL Crossmatch 12/14/17 12/14/17 12/14/17 Range/Units 04:20 04:29 05:24 RBC 2.04 L (4.30-5.90) m/uL Hgb 6.5 L* D (13.0-17.5) gm/dL Hct 18.2 L* (39.0-53.0) % Plt Count 113 L (150-450) k/uL Neutrophils # (1.3-7.7) k/uL Sodium (137-145) mmol/L POC Glucose (mg/dL) 115 H 106 H (75-99) mg/dL Calcium (8.4-10.2) mg/dL Magnesium (1.6-2.3) mg/dL Total Protein (6.3-8.2) g/dL Albumin (3.5-5.0) g/dL Crossmatch 12/14/17 12/14/17 12/14/17 Range/Units 05:44 06:52 07:32 RBC 2.00 L 2.14 L (4.30-5.90) m/uL Hgb 6.3 L* 6.4 L* (13.0-17.5) gm/dL Hct 17.8 L* 19.1 L* (39.0-53.0) % Plt Count 109 L 132 L (150-450) k/uL Neutrophils # 8.4 H (1.3-7.7) k/uL Sodium (137-145) mmol/L POC Glucose (mg/dL) 112 H (75-99) mg/dL Calcium (8.4-10.2) mg/dL Magnesium (1.6-2.3) mg/dL Total Protein (6.3-8.2) g/dL Albumin (3.5-5.0) g/dL Crossmatch 12/14/17 12/14/17 Range/Units 07:43 09:21 RBC (4.30-5.90) m/uL Hgb (13.0-17.5) gm/dL Hct (39.0-53.0) % Plt Count (150-450) k/uL Neutrophils # (1.3-7.7) k/uL Sodium (137-145) mmol/L POC Glucose (mg/dL) 135 H 153 H (75-99) mg/dL Calcium (8.4-10.2) mg/dL Magnesium (1.6-2.3) mg/dL Total Protein (6.3-8.2) g/dL Albumin (3.5-5.0) g/dL Crossmatch Assessment and Plan Assessment: Coronary artery disease s/p 3 vessel bypass - Management per CVT services: ASA lipitor, Plavix, Lopressor - has medistinal tube and chest tube - Attempt to wean off insulin gtt today and transition to SSI with or without fixed dose. Anemia, due to acute blood loss as an expected outcome -2 units on hold, follow CBC - repeat CBC pending, CT surgery following. Ischemic cardiomyopathy with EF 40-45% - ASA, lipitor, Lopressor Monitor fluid status closely - Cozaar/aldactone currently on hold Thrombocytopenia, reactive, improving - follow CBC HTN, controlled - Continue medications as above - follow BP HLD - statin DVT Prophylaxis: Heparin SC
[2017-12-14 10:41] LABS: Glucose,Whole Blood 132 mg/dL (75-99)
[2017-12-14 11:42] LABS: Glucose,Whole Blood 121 mg/dL (75-99)
[2017-12-14] MEDS: INSULIN ASPART 100 UNIT/ML 1 ML 10 ML VIAL SQ SCH ×5 (12:44→21:35)
[2017-12-14] MEDS: LACTATED RINGERS 1,000 ML IV SCH (12:45)
--- NOTE | 2017-12-14 13:06 | P.PN ---
Subjective Progress Note Date: 12/14/17 Principal diagnosis: Coronary artery disease. Recent STEMI in October 2017, status post bare metal stent to the right coronary artery on 10/25/2017. LV dysfunction with EF 40-45 % per echocardiogram done in October, ejection fraction improved to 50% on echocardiogram done in November preoperatively. History of hypertension, hyperlipidemia. Previous tobacco dependence with preoperative FEV1 and 2% of predicted. Family history of premature coronary artery disease with an aunt that at age 30 from a myocardial infarction. POD #2 coronary artery bypass grafting 3 vessels, left internal mammary artery to left anterior descending artery, reverse saphenous vein graft to high diagonal artery, reverse saphenous vein graft to obtuse marginal artery. Endoscopic vein harvest left greater saphenous vein. Epi-aortic ulcer. Intraoperative transesophageal echocardiogram. The patient is currently sitting up to the bedside chair. He is in no acute distress. Currently rates his pain at 3 out of 10 on the pain scale. He reports that he feels somewhat tired and has been able to sleep. His is at his bedside, the questions were answered to the best of my ability. He is hemodynamically stable. Objective - Vital Signs Vital signs: Vital Signs Temp 98.1 F 12/14/17 09:20 Pulse 93 12/14/17 10:00 Resp 17 12/14/17 10:00 BP 117/45 12/14/17 09:20 Pulse Ox 98 12/14/17 10:00 Intake & Output 12/13/17 12/14/17 12/14/17 18:59 06:59 18:59 Intake Total 1080.783 344.925 78 Output Total 778 1357 185 Balance 302.783 -1012.075 -107 Weight 68 kg 68.3 kg Intake: IV 454 338 78 CO/CI 10 Lactated Ringers 1,000 ml 360 260 60 @ 20 mls/hr IV .Q24H [facility] Rx#:[id number] Pressure Bag 84 78 18 Intake, IV Titration 226.783 6.925 Amount ACETAMINOPHEN IV (For NPO 100 ) 1,000 mg In Empty Bag 1 bag @ 400 mls/hr IVPB Q6HR [facility] Rx#:[id number] Clevidipine Butyrate 25 15.333 mg In Empty Bag 1 bag @ 1 MG/HR 2 mls/hr IV .Q24H [facility] Rx#:[id number] Insulin Regular 100 unit 11.450 6.925 In Sodium Chloride 0.9% 100 ml @ Per Protocol IV .Q0M [facility] Rx#:[id number] Magnesium Sulfate-D5w Pmx 100 1 gm In Dextrose/Water 1 100ml.bag @ 100 mls/hr IVPB Q1H [facility] Rx#: [id number] Oral 400 Blood Product 0 Rc As-1 Unit 0 [id number] Output: Chest Tube Drainage [address] 39 7 20 Right & Left Medistinal [address] Urine 539 1280 145 Other: Voiding Method Indwelling Catheter Indwelling Catheter Indwelling Catheter ABP, PAP, CO, CI - Last Documented Arterial Blood Pressure 121/42 Pulmonary Artery Pressure 48/25 Cardiac Output 5.6 Cardiac Index 3.2 - Constitutional General appearance: Present: cooperative, no acute distress - Respiratory Details: Lung sounds are essentially clear throughout, diminished his bilateral bases. Respirations are symmetrical and nonlabored. Oxygen saturation are 95% on room air. He is achieving 1000 mL on his incentive spirometry. Mediastinal and left pleural chest tubes remained to low continuous wall suction -20 cm H4. No air leak is present. Chest tubes are draining thin serosanguineous drainage. Mediastinal chest tubes drained 270 mL in the last 24 hours, 70 mL in the last 8 hours. Left pleural chest tube drained 120 mL in the last 24 hours, 70 mL in the last 8 hours. - Cardiovascular Details: Regular rhythm and rate. S1 and S2 present, negative for S3, gallop or murmur. Sternum is stable. Bedside telemetry showing sinus tachycardia heart rate 102. Right IJ cordis in place to continuous CVP monitoring, current CVP pressure is 2 mmHg. Heart hugger is in place and he is demonstrating appropriate use. Knee-high JACY hose and sequential compression devices in place to his bilateral lower extremities. No edema present. - Gastrointestinal Gastrointestinal Comment(s): Abdomen is soft, nontender nondistended. Hypoactive bowel sounds all 4 abdominal quadrants. Tolerating oral intake. Not passing flatus. No organomegaly. No guarding or rigidity. - Genitourinary Genitourinary Comment(s): Whitley catheter for accurate I&O. Draining clear yellow urine. 1040 mL output in the last 8 hours. - Integumentary Integumentary Comment(s): Skin is warm and dry. No clubbing or cyanosis present. Midline sternal incision clean dry and approximated. No redness or drainage present. Left leg EVH site clean dry and approximated. No drainage or redness present. - Neurologic Neurologic Comment(s): No focal deficits. Neurologic: Present: CNII-XII intact - Musculoskeletal Musculoskeletal: Present: gait normal, strength equal bilaterally - Psychiatric Psychiatric: Present: A&O x's 3, appropriate affect, intact judgment & insight - Allied health notes Allied health notes reviewed: nursing - Labs CBC & Chem 7: 12/14/17 07:32 12/14/17 04:20 Labs: Abnormal Lab Results - Last 24 Hours (Table) 12/05/17 12/13/17 12/13/17 Range/Units 16:35 11:24 12:03 RBC (4.30-5.90) m/uL Hgb (13.0-17.5) gm/dL Hct (39.0-53.0) % Plt Count (150-450) k/uL Neutrophils # (1.3-7.7) k/uL Sodium (137-145) mmol/L POC Glucose (mg/dL) 134 H 133 H (75-99) mg/dL Calcium (8.4-10.2) mg/dL Magnesium (1.6-2.3) mg/dL Total Protein (6.3-8.2) g/dL Albumin (3.5-5.0) g/dL Crossmatch See Detail 12/13/17 12/13/17 12/13/17 Range/Units 13:04 14:26 15:12 RBC (4.30-5.90) m/uL Hgb (13.0-17.5) gm/dL Hct (39.0-53.0) % Plt Count (150-450) k/uL Neutrophils # (1.3-7.7) k/uL Sodium (137-145) mmol/L POC Glucose (mg/dL) 133 H 136 H 133 H (75-99) mg/dL Calcium (8.4-10.2) mg/dL Magnesium (1.6-2.3) mg/dL Total Protein (6.3-8.2) g/dL Albumin (3.5-5.0) g/dL Crossmatch 12/13/17 12/13/17 12/13/17 Range/Units 16:04 17:27 18:12 RBC (4.30-5.90) m/uL Hgb (13.0-17.5) gm/dL Hct (39.0-53.0) % Plt Count (150-450) k/uL Neutrophils # (1.3-7.7) k/uL Sodium (137-145) mmol/L POC Glucose (mg/dL) 144 H 134 H 142 H (75-99) mg/dL Calcium (8.4-10.2) mg/dL Magnesium (1.6-2.3) mg/dL Total Protein (6.3-8.2) g/dL Albumin (3.5-5.0) g/dL Crossmatch 12/13/17 12/13/17 12/13/17 Range/Units 19:10 20:03 20:56 RBC (4.30-5.90) m/uL Hgb (13.0-17.5) gm/dL Hct (39.0-53.0) % Plt Count (150-450) k/uL Neutrophils # (1.3-7.7) k/uL Sodium (137-145) mmol/L POC Glucose (mg/dL) 142 H 141 H 141 H (75-99) mg/dL Calcium (8.4-10.2) mg/dL Magnesium (1.6-2.3) mg/dL Total Protein (6.3-8.2) g/dL Albumin (3.5-5.0) g/dL Crossmatch 12/13/17 12/14/17 12/14/17 Range/Units 23:10 00:47 01:46 RBC (4.30-5.90) m/uL Hgb (13.0-17.5) gm/dL Hct (39.0-53.0) % Plt Count (150-450) k/uL Neutrophils # (1.3-7.7) k/uL Sodium (137-145) mmol/L POC Glucose (mg/dL) 137 H 124 H 128 H (75-99) mg/dL Calcium (8.4-10.2) mg/dL Magnesium (1.6-2.3) mg/dL Total Protein (6.3-8.2) g/dL Albumin (3.5-5.0) g/dL Crossmatch 12/14/17 12/14/17 12/14/17 Range/Units 03:27 04:20 04:20 RBC 2.04 L (4.30-5.90) m/uL Hgb 6.5 L* D (13.0-17.5) gm/dL Hct 18.2 L* (39.0-53.0) % Plt Count 113 L (150-450) k/uL Neutrophils # (1.3-7.7) k/uL Sodium 135 L (137-145) mmol/L POC Glucose (mg/dL) 121 H (75-99) mg/dL Calcium 7.8 L (8.4-10.2) mg/dL Magnesium 2.4 H (1.6-2.3) mg/dL Total Protein 4.4 L (6.3-8.2) g/dL Albumin 2.7 L (3.5-5.0) g/dL Crossmatch 12/14/17 12/14/17 12/14/17 Range/Units 04:29 05:24 05:44 RBC 2.00 L (4.30-5.90) m/uL Hgb 6.3 L* (13.0-17.5) gm/dL Hct 17.8 L* (39.0-53.0) % Plt Count 109 L (150-450) k/uL Neutrophils # (1.3-7.7) k/uL Sodium (137-145) mmol/L POC Glucose (mg/dL) 115 H 106 H (75-99) mg/dL Calcium (8.4-10.2) mg/dL Magnesium (1.6-2.3) mg/dL Total Protein (6.3-8.2) g/dL Albumin (3.5-5.0) g/dL Crossmatch 12/14/17 12/14/17 12/14/17 Range/Units 06:52 07:32 07:43 RBC 2.14 L (4.30-5.90) m/uL Hgb 6.4 L* (13.0-17.5) gm/dL Hct 19.1 L* (39.0-53.0) % Plt Count 132 L (150-450) k/uL Neutrophils # 8.4 H (1.3-7.7) k/uL Sodium (137-145) mmol/L POC Glucose (mg/dL) 112 H 135 H (75-99) mg/dL Calcium (8.4-10.2) mg/dL Magnesium (1.6-2.3) mg/dL Total Protein (6.3-8.2) g/dL Albumin (3.5-5.0) g/dL Crossmatch 12/14/17 12/14/17 Range/Units 09:21 10:40 RBC (4.30-5.90) m/uL Hgb (13.0-17.5) gm/dL Hct (39.0-53.0) % Plt Count (150-450) k/uL Neutrophils # (1.3-7.7) k/uL Sodium (137-145) mmol/L POC Glucose (mg/dL) 153 H 132 H (75-99) mg/dL Calcium (8.4-10.2) mg/dL Magnesium (1.6-2.3) mg/dL Total Protein (6.3-8.2) g/dL Albumin (3.5-5.0) g/dL Crossmatch - Imaging and Cardiology Chest x-ray: report reviewed, image reviewed Assessment and Plan (1) Coronary arteriosclerosis in patient with history of previous myocardial infarction Current Visit: Yes Status: Chronic Code(s): I25.10 - ATHSCL HEART DISEASE OF [place] CORONARY ARTERY W/O ANG PCTRS; I25.2 - OLD MYOCARDIAL INFARCTION SNOMED Code(s): 118499929354034 (2) Coronary artery disease Current Visit: Yes Status: Chronic Code(s): I25.10 - ATHSCL HEART DISEASE OF [place] CORONARY ARTERY W/O ANG PCTRS SNOMED Code(s): 84254335 (3) Family history of coronary artery disease occurring prior to 55 years of age Current Visit: Yes Status: Chronic Code(s): Z82.49 - FAMILY HX OF [place] HEART DIS AND OTH DIS OF THE CIRC SYS SNOMED Code(s): 337307653 (4) Hyperlipidemia Current Visit: Yes Status: Chronic Code(s): E78.5 - HYPERLIPIDEMIA, UNSPECIFIED SNOMED Code(s): 50362850 (5) Hypertension Current Visit: Yes Status: Chronic Code(s): I10 - ESSENTIAL (PRIMARY) HYPERTENSION SNOMED Code(s): 02471030 (6) Tobacco dependence in remission Current Visit: No Status: Resolved Code(s): F17.201 - NICOTINE DEPENDENCE, UNSPECIFIED, IN REMISSION SNOMED Code(s): 351641216 Plan: 1. Continue aspirin, statin, Plavix, subcu heparin, beta rj. Will increase beta rj therapy as tolerated. 2. Encourage incentive spirometry use 10 times every hour. 3. Encourage continued smoking cessation. 4. Increase activity, ambulate in hallway. PT/OT/cardiac rehab following. 5. Will monitor daily labs, chest x-rays. 6. Pain medication with current when necessary ordered regimen. 7. Bronchodilators per pulmonary medicine 8. GI/DVT prophylaxis. 9. Insulin management per primary care services. 10. We will discontinue his mediastinal chest tubes today. Keep his left pleural chest tube to low continuous wall suction -20 cm H2O. 11. Discontinue his right IJ Cordis, and Whitley catheter. 12. Ground his epicardial pacemaker wires. 13. Transfer the patient to [address] [place] [address] for further monitoring and rehabilitation. 14. More recommendations to follow based on the patient's clinical course. Time with Patient: Greater than 30
[2017-12-14] MEDS: ACETAMINOPHEN TAB 325 MG TAB PO PRN ×2 (14:14→21:25)
[2017-12-14 16:49] LABS: Glucose,Whole Blood 132 mg/dL (75-99)
[2017-12-14 20:50] LABS: Glucose,Whole Blood 155 mg/dL (75-99)
[2017-12-14] MEDS: SENNOSIDES-DOCUSATE SODIUM 1 EACH TAB PO SCH (21:25)
[2017-12-14] MEDS ORDERED: MORPHINE SULFATE 4 MG/ML SYRINGE IVP PRN (22:12)
[2017-12-15 02:05] LABS: Glucose,Whole Blood 144 mg/dL (75-99)
[2017-12-15] MEDS: INSULIN ASPART 100 UNIT/ML 1 ML 10 ML VIAL SQ SCH ×7 (03:52→21:01)
[2017-12-15 04:12] VITALS: RESP 18
[2017-12-15] MEDS: KETOROLAC 30 MG/ML 1 ML VIAL IVP SCH ×4 (06:08→23:43)
[2017-12-15 06:23] LABS: Glucose,Whole Blood 103 mg/dL (75-99)
[2017-12-15 06:26] LABS: Basophils % (A) 0 %; Eosinophils # (A) 0.2 k/uL (0-0.7); Eosinophils % (A) 3 %; HCT 21.6 % (39.0-53.0); HGB 7.4 gm/dL (13.0-17.5); Lymphocytes # (A) 1.6 k/uL (1.0-4.8); Lymphocytes % (A) 19 %; MCH 31.3 pg (25.0-35.0); MCHC 34.5 g/dL (31.0-37.0); MCV 90.7 fL (80.0-100.0); Mean Platelet Volume 8.6; Monocytes # (A) 0.4 k/uL (0-1.0); Monocytes % (A) 4 %; Neutrophils # (A) 6.1 k/uL (1.3-7.7); Neutrophils % (A) 73 %; Platelet Count 132 k/uL (150-450); RBC 2.38 m/uL (4.30-5.90); RDW 14.7 % (11.5-15.5); WBC 8.4 k/uL (3.8-10.6)
[2017-12-15 06:38] LABS: ALT 33 U/L (21-72); AST 42 U/L (17-59); Albumin 2.9 g/dL (3.5-5.0); Alkaline Phosphatase 56 U/L (38-126); Anion Gap 4 mmol/L; Blood Urea Nitrogen 16 mg/dL (9-20); Calcium 8.3 mg/dL (8.4-10.2); Carbon Dioxide 29 mmol/L (22-30); Chloride 105 mmol/L (98-107); Glucose 102 mg/dL (74-99); Potassium 4.8 mmol/L (3.5-5.1); Sodium 138 mmol/L (137-145); Total Bilirubin 0.4 mg/dL (0.2-1.3); Total Protein 4.8 g/dL (6.3-8.2)
[2017-12-15] MEDS: IPRATROPIUM-ALBUTEROL 3 ML NEB INHALATION SCH ×4 (07:37→20:10)
--- NOTE | 2017-12-15 08:27 | P.PN ---
Subjective Progress Note Date: 12/15/17 Principal diagnosis: Chest pain Patient is a 47-year-old male with a past medical history of ST segment elevated myocardial infarction with stent to the RCA 10/25/2017 with known multivessel coronary artery disease, ischemic cardiomyopathy with ejection fraction 40-45%, hypertension, and dyslipidemia who presented for triple vessel bypass. On the morning of 12/12/17 he underwent triple vessel bypass grafting with Dr. Brown. He had a VALENTINE to LAD, SVG to obtuse marginal and SVG- high diag with endoscopic vein harvesting of the left leg. Intraoperatively he received 300 ml of Cell Saver, 2500 mL of crystalloid, and 1 L of albumin. His EBL was 1500. He was admitted to the ICU on the ventilator and was extubated 4 hours later. 12/13 awake, alert, and sitting in chair. His hemoglobin dropped slightly on 12/14 and he was transfused 1 unit of pRBC. Patient seen and examined at bedside with present. He went to long without pain medications last evening and his pain was uncontrolled and he felt short of breath. His breathing is now better and his pain is better controlled. He has not had a bowel movement yet but he is passing gas. He was up and walking yesterday and doing well. Likely home tomorrow. Objective - Vital Signs Vital signs: Vital Signs Temp 98.3 F 12/15/17 04:00 Pulse 80 12/15/17 07:47 Resp 18 12/15/17 04:00 BP 111/61 12/15/17 04:00 Pulse Ox 94 L 12/15/17 04:00 Intake & Output 12/14/17 12/15/17 12/15/17 18:59 06:59 18:59 Intake Total 920 Output Total 360 80 Balance 560 -80 Weight 69.4 kg Intake: IV 130 Lactated Ringers 1,000 ml 100 @ 20 mls/hr IV .Q24H [facility] Rx#:[id number] Pressure Bag 30 Oral 480 Blood Product 310 Rc As-1 Unit 310 [id number] Output: Chest Tube Drainage [address] 60 80 Right & Left Medistinal 30 CT Urine 270 Other: Voiding Method Urinal Urinal # Voids 1 ABP, PAP, CO, CI - Last Documented Arterial Blood Pressure 117/43 Pulmonary Artery Pressure 48/25 Cardiac Output 5.6 Cardiac Index 3.2 - Exam General: Non toxic, no distress, appears at stated age Derm: warm, dry, dressing in place over chest wall Head: atraumatic, normocephalic, symmetric Eyes: EOMI, no lid lag, anicteric sclera Mouth: no lip lesion, mucus membranes moist Cardiovascular: S1S2 reg, no murmur, positive posterior tibial pulse bilateral Lungs: decreased bs b/l without wheeze, no rhonchi, no rales , no accessory muscle use, +chest tube Abdominal: soft, nontender to palpation, no guarding, no appreciable organomegaly Ext: no gross muscle atrophy, no edema, no contractures Neuro: CN II-XI grossly intact, no focal neuro deficits Psych: Alert, oriented, appropriate affect - Labs CBC & Chem 7: 12/15/17 05:09 12/15/17 05:09 Labs: Abnormal Lab Results - Last 24 Hours (Table) 12/05/17 12/14/17 12/14/17 Range/Units 16:35 09:21 10:40 RBC (4.30-5.90) m/uL Hgb (13.0-17.5) gm/dL Hct (39.0-53.0) % Plt Count (150-450) k/uL Glucose (74-99) mg/dL POC Glucose (mg/dL) 153 H 132 H (75-99) mg/dL Calcium (8.4-10.2) mg/dL Total Protein (6.3-8.2) g/dL Albumin (3.5-5.0) g/dL Crossmatch See Detail 12/14/17 12/14/17 12/14/17 Range/Units 11:40 16:46 20:48 RBC (4.30-5.90) m/uL Hgb (13.0-17.5) gm/dL Hct (39.0-53.0) % Plt Count (150-450) k/uL Glucose (74-99) mg/dL POC Glucose (mg/dL) 121 H 132 H 155 H (75-99) mg/dL Calcium (8.4-10.2) mg/dL Total Protein (6.3-8.2) g/dL Albumin (3.5-5.0) g/dL Crossmatch 12/15/17 12/15/17 12/15/17 Range/Units 02:03 05:09 05:09 RBC 2.38 L (4.30-5.90) m/uL Hgb 7.4 L (13.0-17.5) gm/dL Hct 21.6 L (39.0-53.0) % Plt Count 132 L (150-450) k/uL Glucose 102 H (74-99) mg/dL POC Glucose (mg/dL) 144 H (75-99) mg/dL Calcium 8.3 L (8.4-10.2) mg/dL Total Protein 4.8 L (6.3-8.2) g/dL Albumin 2.9 L (3.5-5.0) g/dL Crossmatch 12/15/17 Range/Units 06:18 RBC (4.30-5.90) m/uL Hgb (13.0-17.5) gm/dL Hct (39.0-53.0) % Plt Count (150-450) k/uL Glucose (74-99) mg/dL POC Glucose (mg/dL) 103 H (75-99) mg/dL Calcium (8.4-10.2) mg/dL Total Protein (6.3-8.2) g/dL Albumin (3.5-5.0) g/dL Crossmatch Assessment and Plan Assessment: Coronary artery disease s/p 3 vessel bypass - Management per CVT services: ASA lipitor, Plavix, Lopressor - + chest tube - SSI with fixed dose, hope to d/c at lunch today if sugars controlled. Anemia, due to acute blood loss as an expected outcome -s/p 1 unit pRBC - CBC in 1 week, home on Fesol BID X 30 days Ischemic cardiomyopathy with EF 40-45% - ASA, lipitor, Lopressor Monitor fluid status closely - Cozaar/aldactone currently on hold Thrombocytopenia, reactive, improving - follow CBC HTN, controlled - Continue medications as above - follow BP HLD - statin DVT Prophylaxis: Heparin SC
[2017-12-15] MEDS: ATORVASTATIN 40 MG TAB PO SCH (09:16)
[2017-12-15] MEDS: CLOPIDOGREL 75 MG TAB PO SCH (09:16)
[2017-12-15] MEDS: HEPARIN SODIUM,PORCINE 5,000 UNIT/ML 1 ML VIAL SQ SCH ×3 (09:16→23:43)
[2017-12-15] MEDS: METOPROLOL TARTRATE 25 MG TAB PO SCH ×2 (09:16→21:01)
[2017-12-15] MEDS: ASPIRIN 325 MG TAB PO SCH (09:16)
[2017-12-15] MEDS: MUPIROCIN 2% OINT 22 GM TUBE NASAL SCH ×2 (09:16→21:02)
--- NOTE | 2017-12-15 10:54 | P.PN ---
Subjective Progress Note Date: 12/15/17 Principal diagnosis: Current artery disease, status post three-vessel CABG, postop day 2 Mr. Cruz is a 47-year-old white male patient, who we saw in consultation on 10/25/2017 during his admission for acute ST elevated inferior wall WI, related to critical right coronary artery stenosis, status post PTCA and stenting. Patient was experiencing substernal chest pain and heaviness in bilateral arms at rest. Patient underwent cardiac catheterization, he was found to have acute total occlusion of the distal RCA with intermediate to severe disease involving the distal left main coronary artery. He underwent successful stenting of the distal RCA, he was started on dual antiplatelet therapy in the form of Plavix and aspirin, patient was recommended surgical intervention for his left main stenosis, to which he agreed. Echocardiogram showed impaired left ventricle systolic function with an EF between 40-45%, trace mitral and trace tricuspid regurgitation, no pulmonary hypertension. Preop pulmonary function tests reveal an FEV1 of 3.13 L or 92% of predicted, mild obstruction. Patient recently quit smoking, 3 months ago, prior to that he smoked 1-1/2 packs per day for 34 years. 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 Other medical history includes hypertension. Today he is seen in the intensive care, sedated, on mechanical ventilation, status post three-vessel coronary artery bypass grafting, VALENTINE to LAD, SVG to the Obtuse Marginal, and Ramus, with endoscopic vein harvesting of the left leg. Current vent settings include assist control mode with a rate of 12, tidal volume of 450 , FiO2 100% and PEEP of 5. Blood gases are pending, chest x-ray was completed, and showed trace pleural effusions, and some hazy right mid and lower lung densities probably representing atelectasis. Maintenance IV fluids include LR at 50 ml/hr, nitroglycerin on hold, Diprivan at 25mcg/kg/min, Clevidipine at 6 mg/hr. patient received 300 mL of Cell Saver, 2500 of crystalloids, and 1 L of albumin Intra-Op. EBL was 1500 mL. Lung sounds are clear to auscultation, patient is sinus rhythm with a rate of 95, AV epicardial wires are present. External pacemaker with a backup rate, not connected. PA pressure 32/17, CVP is 10, cardiac output and index is 5.8 and 3.3 respectively. Indwelling catheter is in place, patient is nonoliguric. Mediastinal chest tube with 200 mL of sanguinous output, left pleural chest tube with 40 mL of sanguinous output. Midsternal incision is clean dry and intact, covered with surgical dressing, bilateral lower extremities are oswaldo-wrapped. SCDs were applied. On 12/14/2017 patient seen in follow-up in intensive care unit, he is awake alert, on room air, pulse ox is 94%, febrile, hemodynamically stable, maintenance IV fluids is LR at a rate of 20, insulin drip is infusing at 0.5 units per hour, no other drips. PA catheter has been discontinued, blood pressure is 124/43, patient is in sinus rhythm, with a rate of 98-100 bpm, his pain is reasonably controlled, he is compliant with his incentive spirometry, denies shortness of breath. His chest x-ray has been reviewed and shows resolution of the left pneumothorax. Mediastinal and left pleural chest tube are draining small amount of serosanguineous drainage, thoracic surgery is planned and on removing those today. His labs were noted, Inna BCs 10.6, hemoglobin 6.4, and patient is receiving a unit of packed red blood cells, platelet count is 132, sodium is 135, the rest of the electrolytes and renal profile are within normal limits. AV wires are in place, external pacemaker with a backup rate, not connected. Midsternal incision, chest tube sites, and left leg incisions are clean dry and intact. On 12/15/2017 patient seen in follow-up on selective care unit, doing very well , room air pulse ox is 94%, patient has been ambulating and tolerating it well, no dyspnea, his pain is controlled, incentive spirometry effort is 1250 ML today , remains in sinus rhythm. Lung sounds are diminished to bases, no rhonchi, no wheezes or rales. Left pleural chest tube remains in place, 24-hour output is 140 ML of serosanguineous thin fluid, anticipate discontinuation of the left pleural chest tube today, chest x-ray has been reviewed, no pneumothorax, lungs are clear. His labs were noted, hemoglobin 7.4, white blood cell count is 8.4, electrolytes and renal profile are normal. Anticipate discharge home today. Objective - Vital Signs Vital signs: Vital Signs Temp 98.3 F 12/15/17 04:00 Pulse 111 H 12/15/17 08:00 Resp 18 12/15/17 08:00 BP 111/58 12/15/17 08:00 Pulse Ox 94 L 12/15/17 08:00 Intake & Output 12/14/17 12/15/17 12/15/17 18:59 06:59 18:59 Intake Total 920 Output Total 360 80 30 Balance 560 -80 -30 Weight 69.4 kg Intake: IV 130 Lactated Ringers 1,000 ml 100 @ 20 mls/hr IV .Q24H [facility] Rx#:[id number] Pressure Bag 30 Oral 480 Blood Product 310 Rc As-1 Unit 310 [id number] Output: Chest Tube Drainage 90 [address] 60 80 30 Right & Left Medistinal 30 CT Urine 270 Other: Voiding Method Urinal Urinal Urinal # Voids 1 ABP, PAP, CO, CI - Last Documented Arterial Blood Pressure 117/43 Pulmonary Artery Pressure 48/25 Cardiac Output 5.6 Cardiac Index 3.2 - Exam GENERAL EXAM: 47-year-old white male, awake, alert, oriented 3,, comfortable in no apparent distress. HEAD: Normocephalic/atraumatic. EYES: Normal reaction of pupils, equal size. Conjunctiva pink, sclera white. NOSE: Clear with pink turbinates. THROAT: No erythema or exudates. NECK: No masses, no JVD, no thyroid enlargement, no adenopathy. Right IJ Cordis and PA catheter are present. CHEST: No chest wall deformity. Symmetrical expansion. Midsternal incision is clean dry and intact, Left pleural chest tubes with sanguinous output, chest tubes connected to wall suction. AV epicardial wires are in place LUNGS: Equal air entry with no crackles, wheeze, rhonchi or dullness. CVS: Regular rate and rhythm, normal S1 and S2, no gallops, no murmurs, no rubs ABDOMEN: Soft, nontender. No hepatosplenomegaly, normal bowel sounds, no guarding or rigidity. EXTREMITIES: No clubbing, no edema, no cyanosis, 2+ pulses and upper and lower extremities. Left leg incisions covered with surgical dressings, and Oswaldo wrap, SCDs are present on bilateral legs MUSCULOSKELETAL: Muscle strength and tone normal. SPINE: No scoliosis or deformity SKIN: No rashes CENTRAL NERVOUS SYSTEM: No focal neurological deficits - Labs CBC & Chem 7: 12/15/17 05:09 12/15/17 05:09 Labs: Abnormal Lab Results - Last 24 Hours (Table) 12/05/17 12/14/17 12/14/17 Range/Units 16:35 11:40 16:46 RBC (4.30-5.90) m/uL Hgb (13.0-17.5) gm/dL Hct (39.0-53.0) % Plt Count (150-450) k/uL Glucose (74-99) mg/dL POC Glucose (mg/dL) 121 H 132 H (75-99) mg/dL Calcium (8.4-10.2) mg/dL Total Protein (6.3-8.2) g/dL Albumin (3.5-5.0) g/dL Crossmatch See Detail 12/14/17 12/15/17 12/15/17 Range/Units 20:48 02:03 05:09 RBC 2.38 L (4.30-5.90) m/uL Hgb 7.4 L (13.0-17.5) gm/dL Hct 21.6 L (39.0-53.0) % Plt Count 132 L (150-450) k/uL Glucose (74-99) mg/dL POC Glucose (mg/dL) 155 H 144 H (75-99) mg/dL Calcium (8.4-10.2) mg/dL Total Protein (6.3-8.2) g/dL Albumin (3.5-5.0) g/dL Crossmatch 12/15/17 12/15/17 Range/Units 05:09 06:18 RBC (4.30-5.90) m/uL Hgb (13.0-17.5) gm/dL Hct (39.0-53.0) % Plt Count (150-450) k/uL Glucose 102 H (74-99) mg/dL POC Glucose (mg/dL) 103 H (75-99) mg/dL Calcium 8.3 L (8.4-10.2) mg/dL Total Protein 4.8 L (6.3-8.2) g/dL Albumin 2.9 L (3.5-5.0) g/dL Crossmatch Assessment and Plan Plan: Assessment: #1. Coronary artery disease, status post three-vessel bypass grafting, with VALENTINE to LAD, SVG to the OM, and Ramus, with endoscopic left leg harvesting, post -op day 3 #2. Postoperative ventilator management #3. Recent hospitalization for acute inferior wall WI, with PTCA and stenting of the RCA from 10/25/2017 through 10/31/2017 #4. History of nicotine dependence, currently in remission, patient smoked one half packs a day for 34 years #5. Ischemic cardiomyopathy, impaired left ventricle systolic function with an EF between 40-45% #6. Hypertension Plan: Patient remains stable, no specific complaints, pain is under control, he is compliant with his incentive spirometry, chest x-ray shows no pneumothorax, clear lungs. Hemodynamically stable, no acute events overnight. Surgery is planning on discontinuing the left pleural chest tube, and for discharge home today. I performed a history & physical examination of the patient and discussed their management with my nurse practitioner, Gely Leblanc. I reviewed the nurse practitioner's note and agree with the documented findings and plan of care. Lung sounds are positive for clear lung sounds. The findings and the impression was discussed with the patient. I attest to the documentation by the nurse practitioner. Time with Patient: Less than 30
--- NOTE | 2017-12-15 11:12 | XR ---
EXAMINATION TYPE: XR chest 1V portable DATE OF EXAM: 12/15/2017 COMPARISON: 12/14/2017 INDICATION: Postop CABG TECHNIQUE: Single frontal view of the chest is obtained. FINDINGS: The heart size is normal. The pulmonary vasculature is normal. Mild plate atelectasis at the left costophrenic angle. Left-sided chest tube is present directed towa rds the apex. No pneumothorax is evident. Artifact overlies the chest at the left apex. EKG leads ove rlie the chest. Right-sided sheath is been removed. No pneumothorax is evident. IMPRESSION: 1. Left-sided chest tube remains in position. No pneumothorax is evident.
[2017-12-15 11:49] LABS: Glucose,Whole Blood 126 mg/dL (75-99)
[2017-12-15] MEDS: ASCORBIC ACID 500 MG TAB PO SCH (13:16)
[2017-12-15] MEDS: FERROUS SULFATE 325 MG TAB PO SCH (13:16)
--- NOTE | 2017-12-15 14:14 | P.PN ---
Subjective Progress Note Date: 12/15/17 Patient is a 47-year-old male with a past medical history of ST segment elevated myocardial infarction with stent to the RCA 10/25/2017 with known multivessel coronary artery disease, ischemic cardiomyopathy with ejection fraction 40-45%, hypertension, and dyslipidemia who is status post coronary bypass grafting surgery. Patient underwent VALENTINE to the LAD, saphenous vein graft to the obtuse marginal, saphenous vein graft to the diuretic. He was seen and examined this morning, overall doing quite well. Working on his incentive spirometry. Pain under better control. Anticipating possible discharge home tomorrow. Blood pressure 98/56, heart rate in the 80s, 96% on room air. Objective - Vital Signs Vital signs: Vital Signs Temp 98.8 F 12/15/17 12:00 Pulse 101 H 12/15/17 12:00 Resp 18 12/15/17 12:00 BP 97/56 12/15/17 12:00 Pulse Ox 96 12/15/17 12:00 Intake & Output 12/14/17 12/15/17 12/15/17 18:59 06:59 18:59 Intake Total 920 720 Output Total 360 80 30 Balance 560 -80 690 Weight 69.4 kg Intake: IV 130 Lactated Ringers 1,000 ml 100 @ 20 mls/hr IV .Q24H [facility] Rx#:[id number] Pressure Bag 30 Oral 480 720 Blood Product 310 Rc As-1 Unit 310 [id number] Output: Chest Tube Drainage 90 [address] 60 80 30 Right & Left Medistinal 30 CT Urine 270 Other: Voiding Method Urinal Urinal Urinal # Voids 1 ABP, PAP, CO, CI - Last Documented Arterial Blood Pressure 117/43 Pulmonary Artery Pressure 48/25 Cardiac Output 5.6 Cardiac Index 3.2 - Exam PHYSICAL EXAMINATION: GENERAL: 47-year-old gentleman in no acute distress at the time of my examination HEENT: Head is atraumatic, normocephalic. Pupils equal, round. Sclera anicteric. Conjunctiva are clear. Mucous membranes of the mouth are moist. Neck is supple. There is no elevated jugular venous pressure. No carotid bruit is heard. HEART EXAMINATION: Heart S1, S2 normal. No murmur or gallop heard. CHEST EXAMINATION: Lungs are clear with mild diminished air entry to the bases. ABDOMEN: Soft, nontender. Bowel sounds are heard. No organomegaly noted. EXTREMITIES: 2+ peripheral pulses with no evidence of peripheral edema and no calf tenderness noted. NEUROLOGIC patient is awake, alert and oriented X3 . - Labs CBC & Chem 7: 12/15/17 05:09 12/15/17 05:09 Labs: Abnormal Lab Results - Last 24 Hours (Table) 12/14/17 12/14/17 12/15/17 Range/Units 16:46 20:48 02:03 RBC (4.30-5.90) m/uL Hgb (13.0-17.5) gm/dL Hct (39.0-53.0) % Plt Count (150-450) k/uL Glucose (74-99) mg/dL POC Glucose (mg/dL) 132 H 155 H 144 H (75-99) mg/dL Calcium (8.4-10.2) mg/dL Total Protein (6.3-8.2) g/dL Albumin (3.5-5.0) g/dL 12/15/17 12/15/17 12/15/17 Range/Units 05:09 05:09 06:18 RBC 2.38 L (4.30-5.90) m/uL Hgb 7.4 L (13.0-17.5) gm/dL Hct 21.6 L (39.0-53.0) % Plt Count 132 L (150-450) k/uL Glucose 102 H (74-99) mg/dL POC Glucose (mg/dL) 103 H (75-99) mg/dL Calcium 8.3 L (8.4-10.2) mg/dL Total Protein 4.8 L (6.3-8.2) g/dL Albumin 2.9 L (3.5-5.0) g/dL 12/15/17 Range/Units 11:47 RBC (4.30-5.90) m/uL Hgb (13.0-17.5) gm/dL Hct (39.0-53.0) % Plt Count (150-450) k/uL Glucose (74-99) mg/dL POC Glucose (mg/dL) 126 H (75-99) mg/dL Calcium (8.4-10.2) mg/dL Total Protein (6.3-8.2) g/dL Albumin (3.5-5.0) g/dL Assessment and Plan Plan: Assessment and plan #1 status post coronary artery bypass grafting surgery #2 ischemic cardiomyopathy, ejection fraction 40-45%. #3 hypertension #4 hyperlipidemia Plan Patient again has been encouraged regarding the use of his incentive spirometry. We will continue the current medications he is on and plan for possible discharge home in the morning if stable. DNP note has been reviewed, I agree with a documented findings and plan of care. Patient was seen and examined.
--- NOTE | 2017-12-15 16:27 | P.PN ---
Subjective Progress Note Date: 12/15/17 Principal diagnosis: Coronary artery disease. Recent STEMI in October 2017, status post recent bare metal stent to the right coronary artery. LV dysfunction with EF 40-45% per echocardiogram done in October, improved to 50% on echocardiogram done in November preoperatively. History of hypertension, hyperlipidemia. Previous tobacco dependence with preoperative FEV1 and 2% of predicted. Family history of premature coronary artery disease with an aunt that at 30 from myocardial infarction. POD #3 coronary artery bypass grafting 3 vessels, left internal mammary artery to left anterior descending artery, reverse saphenous vein graft to high diagonal artery, reverse saphenous vein graft to obtuse marginal artery. Endoscopic vein harvest left greater saphenous vein. Epi-aortic ulcer. Intraoperative transesophageal echocardiogram. Postoperative normocytic, normochromic anemia, an expected outcome of surgery secondary to cardiopulmonary bypass pump and hemodilution. The patient is currently sitting up in a recliner in no acute distress. States pain is controlled on current pain medication. Was transferred out of ICU to [address] [place] [address] yesterday. He did receive 1 unit of packed red blood cells yesterday for hemoglobin of 6.4 with recovery of this morning to 7.4. Objective - Vital Signs Vital signs: Vital Signs Temp 98.8 F 12/15/17 12:00 Pulse 90 12/15/17 16:11 Resp 18 12/15/17 12:00 BP 97/56 12/15/17 12:00 Pulse Ox 96 12/15/17 12:00 Intake & Output 12/14/17 12/15/17 12/15/17 18:59 06:59 18:59 Intake Total 920 720 Output Total 360 80 310 Balance 560 -80 410 Weight 69.4 kg Intake: IV 130 Lactated Ringers 1,000 ml 100 @ 20 mls/hr IV .Q24H [facility] Rx#:[id number] Pressure Bag 30 Oral 480 720 Blood Product 310 Rc As-1 Unit 310 [id number] Output: Chest Tube Drainage 90 [address] 60 80 60 Right & Left Medistinal 30 CT Urine 270 250 Other: Voiding Method Urinal Urinal Urinal # Voids 1 1 ABP, PAP, CO, CI - Last Documented Arterial Blood Pressure 117/43 Pulmonary Artery Pressure 48/25 Cardiac Output 5.6 Cardiac Index 3.2 - Constitutional General appearance: Present: cooperative, no acute distress - Respiratory Details: Lungs sounds diminished bilaterally. Respirations even, nonlabored. Currently on room air with oxygen saturation 96%. Able to achieve 1250 mL on his incentive spirometry. Effective, productive cough. Left pleural chest tube wasto continuous wall suction, 30 mL serosanguineous drained overnight, 150 mL in the previous 24 hours. No air leaks present. - Cardiovascular Details: S1, S2 present. Regular rate and rhythm, sinus rhythm on telemetry. Sternum stable. A/V epicardial pacemakers present, grounded. Palpable peripheral pulses bilaterally. No edema present. No calf pain or tenderness noted. Heart hugger in place with patient demonstrating appropriate use. Antiembolism stockings, SCDs present. - Gastrointestinal Gastrointestinal Comment(s): Abdomen soft, nontender, nondistended. Active bowel sounds present 4 quadrants. Tolerating diet. Positive flatus. - Genitourinary Genitourinary Comment(s): Whitley discontinued yesterday. Patient's voiding clear, yellow urine. - Integumentary Integumentary Comment(s): Skin is warm and dry with evidence of good perfusion. Anterior chest incision well approximated and covered with dry intact dressing. Left lower extremity EVH site well approximated. - Neurologic Neurologic: Present: CNII-XII intact - Musculoskeletal Musculoskeletal: Present: gait normal, strength equal bilaterally - Psychiatric Psychiatric: Present: A&O x's 3, appropriate affect, intact judgment & insight - Allied health notes Allied health notes reviewed: nursing - Labs CBC & Chem 7: 12/15/17 05:09 12/15/17 05:09 Labs: Abnormal Lab Results - Last 24 Hours (Table) 12/14/17 12/14/17 12/15/17 Range/Units 16:46 20:48 02:03 RBC (4.30-5.90) m/uL Hgb (13.0-17.5) gm/dL Hct (39.0-53.0) % Plt Count (150-450) k/uL Glucose (74-99) mg/dL POC Glucose (mg/dL) 132 H 155 H 144 H (75-99) mg/dL Calcium (8.4-10.2) mg/dL Total Protein (6.3-8.2) g/dL Albumin (3.5-5.0) g/dL 12/15/17 12/15/1718 Range/Units 05:09 05:09 06:18 RBC 2.38 L (4.30-5.90) m/uL Hgb 7.4 L (13.0-17.5) gm/dL Hct 21.6 L (39.0-53.0) % Plt Count 132 L (150-450) k/uL Glucose 102 H (74-99) mg/dL POC Glucose (mg/dL) 103 H (75-99) mg/dL Calcium 8.3 L (8.4-10.2) mg/dL Total Protein 4.8 L (6.3-8.2) g/dL Albumin 2.9 L (3.5-5.0) g/dL 12/15/17 Range/Units 11:47 RBC (4.30-5.90) m/uL Hgb (13.0-17.5) gm/dL Hct (39.0-53.0) % Plt Count (150-450) k/uL Glucose (74-99) mg/dL POC Glucose (mg/dL) 126 H (75-99) mg/dL Calcium (8.4-10.2) mg/dL Total Protein (6.3-8.2) g/dL Albumin (3.5-5.0) g/dL - Imaging and Cardiology Chest x-ray: report reviewed, image reviewed Assessment and Plan (1) Coronary artery disease Current Visit: Yes Status: Chronic Code(s): I25.10 - ATHSCL HEART DISEASE OF [place] CORONARY ARTERY W/O ANG PCTRS SNOMED Code(s): 75029521 (2) Coronary arteriosclerosis in patient with history of previous myocardial infarction Current Visit: Yes Status: Chronic Code(s): I25.10 - ATHSCL HEART DISEASE OF [place] CORONARY ARTERY W/O ANG PCTRS; I25.2 - OLD MYOCARDIAL INFARCTION SNOMED Code(s): 104716400020305 (3) Family history of coronary artery disease occurring prior to 55 years of age Current Visit: Yes Status: Chronic Code(s): Z82.49 - FAMILY HX OF ISCHEM HEART DIS AND OTH DIS OF THE [place] SNOMED Code(s): 540048854 (4) Hyperlipidemia Current Visit: Yes Status: Chronic Code(s): E78.5 - HYPERLIPIDEMIA, UNSPECIFIED SNOMED Code(s): 28292553 (5) Hypertension Current Visit: Yes Status: Chronic Code(s): I10 - ESSENTIAL (PRIMARY) HYPERTENSION SNOMED Code(s): 19282355 (6) Tobacco dependence in remission Current Visit: No Status: Resolved Code(s): F17.201 - NICOTINE DEPENDENCE, UNSPECIFIED, IN REMISSION SNOMED Code(s): 777618947 Plan: 1. Continue aspirin, statin, Plavix, subcu heparin, beta rj. Will increase beta rj therapy as tolerated. 2. Encourage incentive spirometry use 10 times every hour. 3. Encourage continued smoking cessation. 4. Increase activity, ambulate in hallway. PT/OT/cardiac rehab following. 5. Will monitor daily labs, chest x-rays. 6. Pain medication with ordered regimen. 7. Bronchodilators per pulmonology. 8. GI/DVT prophylaxis. 9. Insulin management per primary care services. 10. Epicardial pacemaker wires, left pleural chest tube discontinued without incident. Patient tolerated well. 11. More recommendations to follow.anticipate discharge to home with home care soon. Time with Patient: Greater than 30
[2017-12-15 17:02] LABS: Glucose,Whole Blood 147 mg/dL (75-99)
[2017-12-15 17:10] LABS: Hemoglobin A1C 5.9 % (4.0-6.0)
[2017-12-15 20:31] LABS: Glucose,Whole Blood 122 mg/dL (75-99)
[2017-12-15] MEDS: SENNOSIDES-DOCUSATE SODIUM 1 EACH TAB PO SCH (21:01)
[2017-12-16 02:14] LABS: Glucose,Whole Blood 100 mg/dL (75-99)
[2017-12-16] MEDS: INSULIN ASPART 100 UNIT/ML 1 ML 10 ML VIAL SQ SCH ×3 (05:30→12:25)
[2017-12-16 06:04] LABS: Glucose,Whole Blood 109 mg/dL (75-99)
[2017-12-16 06:05] LABS: Basophils % (A) 0 %; Eosinophils # (A) 0.4 k/uL (0-0.7); Eosinophils % (A) 5 %; HCT 21.1 % (39.0-53.0); HGB 7.1 gm/dL (13.0-17.5); Lymphocytes # (A) 2.1 k/uL (1.0-4.8); Lymphocytes % (A) 26 %; MCH 30.4 pg (25.0-35.0); MCHC 33.4 g/dL (31.0-37.0); Mean Platelet Volume 7.9; Monocytes # (A) 0.3 k/uL (0-1.0); Monocytes % (A) 4 %; Neutrophils % (A) 62 %; Platelet Count 190 k/uL (150-450); RBC 2.32 m/uL (4.30-5.90); RDW 15.6 % (11.5-15.5); WBC 8.1 k/uL (3.8-10.6)
[2017-12-16 06:17] LABS: ALT 44 U/L (21-72); AST 48 U/L (17-59); Albumin 2.9 g/dL (3.5-5.0); Alkaline Phosphatase 55 U/L (38-126); Anion Gap 3 mmol/L; Blood Urea Nitrogen 16 mg/dL (9-20); Calcium 8.3 mg/dL (8.4-10.2); Carbon Dioxide 29 mmol/L (22-30); Chloride 107 mmol/L (98-107); Glucose 110 mg/dL (74-99); Potassium 4.6 mmol/L (3.5-5.1); Sodium 139 mmol/L (137-145); Total Bilirubin 0.3 mg/dL (0.2-1.3); Total Protein 4.9 g/dL (6.3-8.2)
--- NOTE | 2017-12-16 06:43 | XR ---
EXAMINATION TYPE: XR chest 2V DATE OF EXAM: 12/16/2017 HISTORY: post chest tube removal. REFERENCE: Previous study dated 12/15/2017. FINDINGS: The patient left pleural drain has been removed. No definite pneumothorax is seen. The lung s appear clear. There is a small right-sided effusion. The heart is not enlarged. IMPRESSION: NO RESIDUAL PNEUMOTHORAX IDENTIFIED.
[2017-12-16] MEDS: KETOROLAC 30 MG/ML 1 ML VIAL IVP SCH ×2 (06:44→13:19)
[2017-12-16] MEDS: IPRATROPIUM-ALBUTEROL 3 ML NEB INHALATION SCH ×2 (07:24→10:49)
[2017-12-16] MEDS: HEPARIN SODIUM,PORCINE 5,000 UNIT/ML 1 ML VIAL SQ SCH (08:17)
[2017-12-16] MEDS: ASPIRIN 325 MG TAB PO SCH (08:18)
[2017-12-16] MEDS: METOPROLOL TARTRATE 25 MG TAB PO SCH (08:18)
[2017-12-16] MEDS: ATORVASTATIN 40 MG TAB PO SCH (08:18)
[2017-12-16] MEDS: CLOPIDOGREL 75 MG TAB PO SCH (08:18)
--- NOTE | 2017-12-16 08:26 | P.PN ---
Subjective Progress Note Date: 12/16/17 Principal diagnosis: Chest pain Patient is a 47-year-old male with a past medical history of ST segment elevated myocardial infarction with stent to the RCA 10/25/2017 with known multivessel coronary artery disease, ischemic cardiomyopathy with ejection fraction 40-45%, hypertension, and dyslipidemia who presented for triple vessel bypass. On the morning of 12/12/17 he underwent triple vessel bypass grafting with Dr. Brown. He had a VALENTINE to LAD, SVG to obtuse marginal and SVG- high diag with endoscopic vein harvesting of the left leg. Intraoperatively he received 300 ml of Cell Saver, 2500 mL of crystalloid, and 1 L of albumin. His EBL was 1500. He was admitted to the ICU on the ventilator and was extubated 4 hours later. 12/13 awake, alert, and sitting in chair. His hemoglobin dropped slightly on 12/14 and he was transfused 1 unit of pRBC. He has progressed well. Patient seen and examined at bedside. Pain well controlled. No shortness of breath. No nausea or vomiting. Still no bowel movement, going to take mild of magnesia and feels that bowel movement is right there. Feeling well today and excited in anticipation of going home. Objective - Vital Signs Vital signs: Vital Signs Temp 96.9 F L 12/16/17 08:00 Pulse 117 H 12/16/17 08:00 Resp 18 12/16/17 08:00 BP 126/62 12/16/17 08:00 Pulse Ox 97 12/16/17 08:00 Intake & Output 12/15/17 12/16/17 12/16/17 18:59 06:59 18:59 Intake Total 1320 360 Output Total 310 Balance 1010 360 Weight 68.9 kg Intake: Oral 1320 360 Output: Chest Tube Drainage [address] 60 Urine 250 Other: Voiding Method Urinal Urinal # Voids 1 2 ABP, PAP, CO, CI - Last Documented Arterial Blood Pressure 117/43 Pulmonary Artery Pressure 48/25 Cardiac Output 5.6 Cardiac Index 3.2 - Exam General: Non toxic, no distress, appears at stated age Derm: warm, dry, dressing in place over chest wall Head: atraumatic, normocephalic, symmetric Eyes: EOMI, no lid lag, anicteric sclera Mouth: no lip lesion, mucus membranes moist Cardiovascular: S1S2 reg, no murmur, positive posterior tibial pulse bilateral Lungs: CTA bilateral, no rhonchi, no rales , no accessory muscle use Abdominal: soft, nontender to palpation, no guarding, no appreciable organomegaly Ext: no gross muscle atrophy, 1+ edema Left lower extremity, no contractures Neuro: CN II-XI grossly intact, no focal neuro deficits Psych: Alert, oriented, appropriate affect - Labs CBC & Chem 7: 12/16/17 05:38 12/16/17 05:38 Labs: Abnormal Lab Results - Last 24 Hours (Table) 12/15/17 12/15/17 12/15/17 Range/Units 11:47 17:01 20:29 RBC (4.30-5.90) m/uL Hgb (13.0-17.5) gm/dL Hct (39.0-53.0) % RDW (11.5-15.5) % Glucose (74-99) mg/dL POC Glucose (mg/dL) 126 H 147 H 122 H (75-99) mg/dL Calcium (8.4-10.2) mg/dL Total Protein (6.3-8.2) g/dL Albumin (3.5-5.0) g/dL 12/16/17 12/16/17 12/16/17 Range/Units 02:11 05:38 05:38 RBC 2.32 L (4.30-5.90) m/uL Hgb 7.1 L (13.0-17.5) gm/dL Hct 21.1 L (39.0-53.0) % RDW 15.6 H (11.5-15.5) % Glucose 110 H (74-99) mg/dL POC Glucose (mg/dL) 100 H (75-99) mg/dL Calcium 8.3 L (8.4-10.2) mg/dL Total Protein 4.9 L (6.3-8.2) g/dL Albumin 2.9 L (3.5-5.0) g/dL 12/16/17 Range/Units 05:58 RBC (4.30-5.90) m/uL Hgb (13.0-17.5) gm/dL Hct (39.0-53.0) % RDW (11.5-15.5) % Glucose (74-99) mg/dL POC Glucose (mg/dL) 109 H (75-99) mg/dL Calcium (8.4-10.2) mg/dL Total Protein (6.3-8.2) g/dL Albumin (3.5-5.0) g/dL Assessment and Plan Assessment: Coronary artery disease s/p 3 vessel bypass - Management per CVT services: ASA lipitor, Plavix, Lopressor Anemia, due to acute blood loss as an expected outcome -s/p 1 unit pRBC - CBC in 1 week, home on Fesol BID X 30 days Ischemic cardiomyopathy with EF 40-45% - ASA, lipitor, Lopressor Monitor fluid status closely - Cozaar/aldactone currently on hold Thrombocytopenia,resolved HTN, controlled - Continue medications as above - follow BP HLD - statin DVT Prophylaxis: Heparin SC
[2017-12-16] MEDS ORDERED: ASCORBIC ACID 500 MG TAB PO SCH (08:45)
--- NOTE | 2017-12-16 09:12 | P.PN ---
Subjective Progress Note Date: 12/16/17 Principal diagnosis: Coronary artery disease. Recent STEMI in October 2017, status post recent bare metal stent to the right coronary artery. LV dysfunction with EF 40-45% per echocardiogram done in October, improved to 50% on echocardiogram done in November preoperatively. History of hypertension, hyperlipidemia. Previous tobacco dependence with preoperative FEV1 and 2% of predicted. Family history of premature coronary artery disease with an aunt that at 30 from myocardial infarction. POD #4 coronary artery bypass grafting 3 vessels, left internal mammary artery to left anterior descending artery, reverse saphenous vein graft to high diagonal artery, reverse saphenous vein graft to obtuse marginal artery. Endoscopic vein harvest left greater saphenous vein. Epi-aortic ulcer. Intraoperative transesophageal echocardiogram. Postoperative normocytic, normochromic anemia, an expected outcome of surgery secondary to cardiopulmonary bypass pump and hemodilution. The patient is currently sitting up in a recliner in no acute distress. States pain is controlled on current pain medication. Denies shortness of breath. Patient is highly anxious and worried that he may do something wrong. He has ambulated in the hallway multiple times, and feels good enough to go home today. Objective - Vital Signs Vital signs: Vital Signs Temp 96.9 F L 12/16/17 08:00 Pulse 117 H 12/16/17 08:00 Resp 18 12/16/17 08:00 BP 126/62 12/16/17 08:00 Pulse Ox 97 12/16/17 08:00 Intake & Output 12/15/17 12/16/17 12/16/17 18:59 06:59 18:59 Intake Total 1320 360 Output Total 310 Balance 1010 360 Weight 68.9 kg Intake: Oral 1320 360 Output: Chest Tube Drainage [address] 60 Urine 250 Other: Voiding Method Urinal Urinal Urinal # Voids 1 2 ABP, PAP, CO, CI - Last Documented Arterial Blood Pressure 117/43 Pulmonary Artery Pressure 48/25 Cardiac Output 5.6 Cardiac Index 3.2 - Constitutional General appearance: Present: cooperative, no acute distress - Respiratory Details: Lungs sounds diminished bilaterally. Respirations even, nonlabored. Currently on room air with oxygen saturation 97%. Able to achieve 6416-0151 mL on his incentive spirometry. Effective, productive cough with clear sputum. - Cardiovascular Details: S1, S2 present. Regular rate and rhythm, sinus rhythm to sinus tach on telemetry. Sternum stable. Palpable peripheral pulses bilaterally. Left thigh edema present with ecchymosis secondary to EVH harvesting. No calf pain or tenderness noted. Heart hugger in place with patient demonstrating appropriate use. Antiembolism stockings, SCDs present. - Gastrointestinal Gastrointestinal Comment(s): Abdomen soft, nontender, nondistended. Active bowel sounds present 4 quadrants. Tolerating diet. Positive flatus. - Genitourinary Genitourinary Comment(s): Patient continues to void clear, yellow urine. - Integumentary Integumentary Comment(s): Skin is warm and dry with evidence of good perfusion. Anterior chest incision well approximated and covered with dry intact dressing. Left lower extremity EVH site well approximated. - Neurologic Neurologic: Present: CNII-XII intact - Musculoskeletal Musculoskeletal: Present: gait normal, strength equal bilaterally - Psychiatric Psychiatric: Present: A&O x's 3, appropriate affect, intact judgment & insight - Allied health notes Allied health notes reviewed: nursing - Labs CBC & Chem 7: 12/16/17 05:38 12/16/17 05:38 Labs: Abnormal Lab Results - Last 24 Hours (Table) 12/15/17 12/15/17 12/15/17 Range/Units 11:47 17:01 20:29 RBC (4.30-5.90) m/uL Hgb (13.0-17.5) gm/dL Hct (39.0-53.0) % RDW (11.5-15.5) % Glucose (74-99) mg/dL POC Glucose (mg/dL) 126 H 147 H 122 H (75-99) mg/dL Calcium (8.4-10.2) mg/dL Total Protein (6.3-8.2) g/dL Albumin (3.5-5.0) g/dL 12/16/17 12/16/17 12/16/17 Range/Units 02:11 05:38 05:38 RBC 2.32 L (4.30-5.90) m/uL Hgb 7.1 L (13.0-17.5) gm/dL Hct 21.1 L (39.0-53.0) % RDW 15.6 H (11.5-15.5) % Glucose 110 H (74-99) mg/dL POC Glucose (mg/dL) 100 H (75-99) mg/dL Calcium 8.3 L (8.4-10.2) mg/dL Total Protein 4.9 L (6.3-8.2) g/dL Albumin 2.9 L (3.5-5.0) g/dL 12/16/17 Range/Units 05:58 RBC (4.30-5.90) m/uL Hgb (13.0-17.5) gm/dL Hct (39.0-53.0) % RDW (11.5-15.5) % Glucose (74-99) mg/dL POC Glucose (mg/dL) 109 H (75-99) mg/dL Calcium (8.4-10.2) mg/dL Total Protein (6.3-8.2) g/dL Albumin (3.5-5.0) g/dL - Imaging and Cardiology Chest x-ray: report reviewed, image reviewed Assessment and Plan (1) Coronary artery disease Current Visit: Yes Status: Chronic Code(s): I25.10 - ATHSCL HEART DISEASE OF [place] CORONARY ARTERY W/O ANG PCTRS SNOMED Code(s): 30474387 (2) Coronary arteriosclerosis in patient with history of previous myocardial infarction Current Visit: Yes Status: Chronic Code(s): I25.10 - ATHSCL HEART DISEASE OF [place] CORONARY ARTERY W/O ANG PCTRS; I25.2 - OLD MYOCARDIAL INFARCTION SNOMED Code(s): 394081831863858 (3) Family history of coronary artery disease occurring prior to 55 years of age Current Visit: Yes Status: Chronic Code(s): Z82.49 - FAMILY HX OF ISCHEM HEART DIS AND OTH DIS OF THE [facility] SNOMED Code(s): 429212837 (4) Hyperlipidemia Current Visit: Yes Status: Chronic Code(s): E78.5 - HYPERLIPIDEMIA, UNSPECIFIED SNOMED Code(s): 89996510 (5) Hypertension Current Visit: Yes Status: Chronic Code(s): I10 - ESSENTIAL (PRIMARY) HYPERTENSION SNOMED Code(s): 99410945 (6) Tobacco dependence in remission Current Visit: No Status: Resolved Code(s): F17.201 - NICOTINE DEPENDENCE, UNSPECIFIED, IN REMISSION SNOMED Code(s): 511699854 Plan: 1. Continue aspirin, statin, Plavix, subcu heparin, beta rj. Lopressor increased to 25 mg 3 times a day. Will increase beta rj therapy as tolerated. 2. Encourage incentive spirometry use 10 times every hour. 3. Encourage continued smoking cessation. 4. Increase activity, ambulate in hallway. PT/OT/cardiac rehab following. 5. Will monitor daily labs, chest x-rays. No transfusion necessary. Continue iron/vitamin C. 6. Pain medication with ordered regimen. 7. Bronchodilators per pulmonology. 8. GI/DVT prophylaxis. 9. Insulin management per primary care services. 10. More recommendations to follow. Anticipate discharge to home with home care later today. Time with Patient: Greater than 30
--- NOTE | 2017-12-16 09:28 | P.PN ---
Subjective Progress Note Date: 12/16/17 Principal diagnosis: Coronary artery disease Mr. Cruz is a 47-year-old white male patient, who we saw in consultation on 10/25/2017 during his admission for acute ST elevated inferior wall OR, related to critical right coronary artery stenosis, status post PTCA and stenting. Patient was experiencing substernal chest pain and heaviness in bilateral arms at rest. Patient underwent cardiac catheterization, he was found to have acute total occlusion of the distal RCA with intermediate to severe disease involving the distal left main coronary artery. He underwent successful stenting of the distal RCA, he was started on dual antiplatelet therapy in the form of Plavix and aspirin, patient was recommended surgical intervention for his left main stenosis, to which he agreed. Echocardiogram showed impaired left ventricle systolic function with an EF between 40-45%, trace mitral and trace tricuspid regurgitation, no pulmonary hypertension. Preop pulmonary function tests reveal an FEV1 of 3.13 L or 92% of predicted, mild obstruction. Patient recently quit smoking, 3 months ago, prior to that he smoked 1-1/2 packs per day for 34 years. 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 Other medical history includes hypertension. Today he is seen in the intensive care, sedated, on mechanical ventilation, status post three-vessel coronary artery bypass grafting, VALENTINE to LAD, SVG to the Obtuse Marginal, and Ramus, with endoscopic vein harvesting of the left leg. Current vent settings include assist control mode with a rate of 12, tidal volume of 450 , FiO2 100% and PEEP of 5. Blood gases are pending, chest x-ray was completed, and showed trace pleural effusions, and some hazy right mid and lower lung densities probably representing atelectasis. Maintenance IV fluids include LR at 50 ml/hr, nitroglycerin on hold, Diprivan at 25mcg/kg/min, Clevidipine at 6 mg/hr. patient received 300 mL of Cell Saver, 2500 of crystalloids, and 1 L of albumin Intra-Op. EBL was 1500 mL. Lung sounds are clear to auscultation, patient is sinus rhythm with a rate of 95, AV epicardial wires are present. External pacemaker with a backup rate, not connected. PA pressure 32/17, CVP is 10, cardiac output and index is 5.8 and 3.3 respectively. Indwelling catheter is in place, patient is nonoliguric. Mediastinal chest tube with 200 mL of sanguinous output, left pleural chest tube with 40 mL of sanguinous output. Midsternal incision is clean dry and intact, covered with surgical dressing, bilateral lower extremities are oswaldo-wrapped. SCDs were applied. The patient is seen again today 12/13/2017 in follow-up in the intensive care unit. He is currently sitting up in a chair at the bedside. He is awake and alert in no acute distress. He was successfully extubated early last evening. Today's chest x-ray shows a small left apical pneumothorax with a maximal pleural separation of 4 mm. Mediastinal left and right chest tubes remain in place. He is maintaining good O2 saturations in the high 90s on 3 L/m per nasal cannula. Current vital signs are stable, slightly tachycardic. PA pressure 22/ 10 CVP 5. Metoprolol was added 25 mg twice a day today. He did have one episode of hypotension with initial standing. He received albumin. He is currently on clevidipine 4 mg per hour. Insulin at 0.5 units per hour. Lactated Ringer's at 50 MLS per hour. His pain is well controlled. He denies any worsening shortness of breath, cough or congestion. He is working well with the incentive spirometer. White count 13.9. Hemoglobin 8.4. Creatinine 0.87. On 12/14/2017 patient seen in follow-up in intensive care unit, he is awake alert, on room air, pulse ox is 94%, febrile, hemodynamically stable, maintenance IV fluids is LR at a rate of 20, insulin drip is infusing at 0.5 units per hour, no other drips. PA catheter has been discontinued, blood pressure is 124/43, patient is in sinus rhythm, with a rate of 98-100 bpm, his pain is reasonably controlled, he is compliant with his incentive spirometry, denies shortness of breath. His chest x-ray has been reviewed and shows resolution of the left pneumothorax. Mediastinal and left pleural chest tube are draining small amount of serosanguineous drainage, thoracic surgery is planned and on removing those today. His labs were noted, Inna BCs 10.6, hemoglobin 6.4, and patient is receiving a unit of packed red blood cells, platelet count is 132, sodium is 135, the rest of the electrolytes and renal profile are within normal limits. AV wires are in place, external pacemaker with a backup rate, not connected. Midsternal incision, chest tube sites, and left leg incisions are clean dry and intact. On 12/15/2017 patient seen in follow-up on [facility] care unit, doing very well , room air pulse ox is 94%, patient has been ambulating and tolerating it well, no dyspnea, his pain is controlled, incentive spirometry effort is 1250 ML today , remains in sinus rhythm. Lung sounds are diminished to bases, no rhonchi, no wheezes or rales. Left pleural chest tube remains in place, 24-hour output is 140 ML of serosanguineous thin fluid, anticipate discontinuation of the left pleural chest tube today, chest x-ray has been reviewed, no pneumothorax, lungs are clear. His labs were noted, hemoglobin 7.4, white blood cell count is 8.4, electrolytes and renal profile are normal. Anticipate discharge home today. Patient is seen today 12/16/2017 in follow-up on the selective care unit. He is currently sitting up in a chair at the bedside. He is awake and alert in no acute distress. He denies any worsening shortness of breath, cough or congestion. His x-ray today reveals no residual pneumothorax. Chest tubes removed. There is a small right-sided effusion. Maintaining good O2 saturations in the upper 90s on room air. He's been afebrile. Hemodynamically stable. Count 8.1. Hemoglobin 7.1. Creatinine 0.90. He is hoping to go home today. Objective - Vital Signs Vital signs: Vital Signs Temp 96.9 F L 12/16/17 08:00 Pulse 117 H 12/16/17 08:00 Resp 18 12/16/17 08:00 BP 126/62 12/16/17 08:00 Pulse Ox 97 12/16/17 08:00 Intake & Output 12/15/17 12/16/17 12/16/17 18:59 06:59 18:59 Intake Total 1320 360 Output Total 310 Balance 1010 360 Weight 68.9 kg Intake: Oral 1320 360 Output: Chest Tube Drainage [address] 60 Urine 250 Other: Voiding Method Urinal Urinal Urinal # Voids 1 2 ABP, PAP, CO, CI - Last Documented Arterial Blood Pressure 117/43 Pulmonary Artery Pressure 48/25 Cardiac Output 5.6 Cardiac Index 3.2 - Exam GENERAL EXAM: 47-year-old white male, awake, alert, oriented 3,, comfortable in no apparent distress. HEAD: Normocephalic/atraumatic. EYES: Normal reaction of pupils, equal size. Conjunctiva pink, sclera white. NOSE: Clear with pink turbinates. THROAT: No erythema or exudates. NECK: No masses, no JVD, no thyroid enlargement, no adenopathy. CHEST: No chest wall deformity. Symmetrical expansion. Midsternal sitting is clean dry and intact. LUNGS: Equal air entry with no crackles, wheeze, rhonchi or dullness. CVS: Regular rate and rhythm, normal S1 and S2, no gallops, no murmurs, no rubs ABDOMEN: Soft, nontender. No hepatosplenomegaly, normal bowel sounds, no guarding or rigidity. EXTREMITIES: No clubbing, no edema, no cyanosis, 2+ pulses and upper and lower extremities. Left leg incisions covered with surgical dressings, and Oswaldo wrap, SCDs are present on bilateral legs MUSCULOSKELETAL: Muscle strength and tone normal. SPINE: No scoliosis or deformity SKIN: No rashes CENTRAL NERVOUS SYSTEM: No focal neurological deficits - Labs CBC & Chem 7: 12/16/17 05:38 12/16/17 05:38 Labs: Abnormal Lab Results - Last 24 Hours (Table) 12/15/17 12/15/17 12/15/17 Range/Units 11:47 17:01 20:29 RBC (4.30-5.90) m/uL Hgb (13.0-17.5) gm/dL Hct (39.0-53.0) % RDW (11.5-15.5) % Glucose (74-99) mg/dL POC Glucose (mg/dL) 126 H 147 H 122 H (75-99) mg/dL Calcium (8.4-10.2) mg/dL Total Protein (6.3-8.2) g/dL Albumin (3.5-5.0) g/dL 12/16/17 12/16/17 12/16/17 Range/Units 02:11 05:38 05:38 RBC 2.32 L (4.30-5.90) m/uL Hgb 7.1 L (13.0-17.5) gm/dL Hct 21.1 L (39.0-53.0) % RDW 15.6 H (11.5-15.5) % Glucose 110 H (74-99) mg/dL POC Glucose (mg/dL) 100 H (75-99) mg/dL Calcium 8.3 L (8.4-10.2) mg/dL Total Protein 4.9 L (6.3-8.2) g/dL Albumin 2.9 L (3.5-5.0) g/dL 12/16/17 Range/Units 05:58 RBC (4.30-5.90) m/uL Hgb (13.0-17.5) gm/dL Hct (39.0-53.0) % RDW (11.5-15.5) % Glucose (74-99) mg/dL POC Glucose (mg/dL) 109 H (75-99) mg/dL Calcium (8.4-10.2) mg/dL Total Protein (6.3-8.2) g/dL Albumin (3.5-5.0) g/dL Assessment and Plan Assessment: Assessment: #1. Coronary artery disease, status post three-vessel bypass grafting, with VALENTINE to LAD, SVG to the OM, and Ramus, with endoscopic left leg harvesting,. #2. Recent hospitalization for acute inferior wall OR, with PTCA and stenting of the RCA from 10/25/2017 through 10/31/2017 #3. History of nicotine dependence, currently in remission, patient smoked one half packs a day for 34 years #4. Ischemic cardiomyopathy, impaired left ventricle systolic function with an EF between 40-45% #5. Hypertension Plan: The patient was seen and evaluated by Dr. Mchugh. Chest x-ray and labs all reviewed. The patient is doing well from the pulmonary standpoint. Maintaining good O2 saturations in the upper 90s on room air. He is working well with the incentive spirometer. He is cleared for discharge from the pulmonary standpoint. He'll follow-up in our office in 1-2 weeks' time. We'll repeat a chest x-ray then. I, the cosigning physician, performed a history & physical examination of the patient. Lungs sounds with crackles in the bilateral posterior bases. Maintaining good O2 saturations in the 90s on room air. I discussed the assessment and plan of care with my nurse practitioner, Barbara Cuellar. I attest to the above note as dictated by her.
[2017-12-16 12:21] LABS: Glucose,Whole Blood 123 mg/dL (75-99)
[2017-12-16 12:24] VITALS: BP 113/59; PULSE 100; TEMP 96.4
--- NOTE | 2017-12-16 12:56 | P.DS ---
Providers Date of admission: 12/12/17 05:32 Expected date of discharge: 12/16/17 Attending physician: Aditya Brown Consults: 12/12/17 14:29 Consult Physician Routine Consulting Provider: Lobo Mchugh Consult Reason/Comments: Silver Plater Consult: post cardiac surgery Do you want consulting provider notified?: Yes Consult Physician Routine Consulting Provider: Jassi Henning Consult Reason/Comments: Development Analyst Consult: post cardiac surgery Do you want consulting provider notified?: Yes Consult Physician Routine Consulting Provider: Lacho Dalton Consult Reason/Comments: medical management Do you want consulting provider notified?: Yes Primary care physician: Stated None - Discharge Diagnosis(es) (1) Coronary artery disease Current Visit: Yes Status: Chronic (2) Coronary arteriosclerosis in patient with history of previous myocardial infarction Current Visit: Yes Status: Chronic (3) Family history of coronary artery disease occurring prior to 55 years of age Current Visit: Yes Status: Chronic (4) Hyperlipidemia Current Visit: Yes Status: Chronic (5) Hypertension Current Visit: Yes Status: Chronic (6) Tobacco dependence in remission Current Visit: No Status: Resolved Hospital Course: FINAL DIAGNOSIS: 1. Coronary artery disease, recent STEMI in October 2017, status post recent bare metal stent to the right coronary artery 2. LV dysfunction with EF 40-45% per echocardiogram done in October, improved to 50% on echocardiogram in November preoperatively 3. Hypertension 4. Hyperlipidemia 5. Previous tobacco dependence with preoperative FEV1 92% of predicted 6. History of premature coronary artery disease 7. Postoperative normocytic, normochromic anemia PRINCIPAL PROCEDURE: 1. Coronary artery bypass grafting 3 vessels, left internal mammary artery to the left anterior descending artery, reverse saphenous vein graft to the high diagonal artery, reverse saphenous vein graft to the obtuse marginal artery 2. Endoscopic vein harvest left greater saphenous vein 3. Epi-aortic ultrasound 4. Intraoperative transesophageal echocardiogram HISTORY OF PRESENT ILLNESS: This is a 47-year-old gentleman who does not follow with a primary care physician on a regular basis. He presented to the emergency department and [facility] in October 2017 with complaints of substernal chest pain with radiation to his neck and arms associated with nausea. Apparently he had been having episodes of chest pain with activity over the previous year which was relieved with rest, however this time his pain was unrelieved. A 12-lead EKG was completed at that time demonstrated inferior ST elevations and he was ruled in for acute ST elevation myocardial infarction. He was taken to the [facility] and was found to have left main stenosis 60%, totally occluded right coronary artery, 50-60% stenosis to the circumflex coronary artery, and 70% stenosis to the proximal left anterior descending coronary artery. A bare-metal stent was placed to the right coronary artery. The patient recovered nicely and was placed on Plavix. The patient was referred to Dr. Brown from cardiothoracic surgery. He was recommended to undergo coronary artery bypass graft surgery, however he needed to be maintained on Plavix for one month due to bare-metal stent placement. He did follow-up after month with Dr. Brown in the office, he denied any further chest pain or any other issues, and plans were made for bypass surgery. All risks and benefits were explained in detail to the patient and his family, all questions were answered, and consent was obtained to proceed with surgery. He did have an echocardiogram completed in the cardiology office prior to his surgery and his left ventricular function improved from 40-45% after his STEMI to approximately 50%. Plavix was to be held 5 days prior to surgery. HOSPITAL COURSE: The patient was brought to the hospital on 12/12/2017, taken to the preoperative area, prepared in the usual fashion, and subsequently taken to the operating room where Dr. Brown performed coronary artery bypass grafting 3 vessels, left internal mammary artery to the left anterior descending artery , reverse saphenous vein graft to the high diagonal artery, reverse saphenous vein graft to the obtuse marginal artery, endoscopic vein harvest left greater saphenous vein, epi-aortic ultrasound, and intraoperative transesophageal echocardiogram. Upon completion of surgery the patient was transferred to the cardiovascular intensive care unit where he was recovered, monitored hemodynamically, and where he progressed to cardiac rehabilitation phase 1. He was extubated, all lines, tubes, and drips were discontinued when appropriate, and he was transferred to [address] [place] [address] for further monitoring and rehabilitation. His oxygen was titrated down, he continued to work with physical and occupational therapy, he was tolerating oral diet, his pain was controlled, and he was ready to be discharged to home with home care on postoperative day #4. He received written and verbal instruction regarding his medications, activity restrictions, signs and symptoms requiring physician notification, and follow-up appointments. COMPLICATIONS: The patient experienced postoperative normocytic, normochromic anemia, an expected outcome of surgery, requiring no transfusions. Patient Condition at Discharge: Stable Plan - Discharge Summary Discharge Rx Participant: Yes New Discharge Prescriptions: New Acetaminophen Tab [Tylenol] 650 mg PO Q4HR PRN tab PRN Reason: Fever And/ Or Pain Ascorbic Acid [Vitamin C] 500 mg PO BID-W/MEALS #60 tab Aspirin 325 mg PO DAILY #30 tab Ferrous Sulfate [Iron (65 MG Elemental)] 325 mg PO BID-W/MEALS #60 tab Metoprolol Tartrate [Lopressor] 25 mg PO TID #90 tab Continue Atorvastatin [Lipitor] 80 mg PO HS #30 tab Clopidogrel [Plavix] 75 mg PO QAM Discontinued Carvedilol [Coreg] 3.125 mg PO BID-W/MEALS #60 tab Losartan [Cozaar] 12.5 mg PO DAILY #30 tab Nitroglycerin Sl Tabs [Nitrostat] 0.4 mg SUBLINGUAL Q5M PRN #25 tab PRN Reason: Chest Pain Aspirin 81 mg PO QAM Spironolactone [Aldactone] 25 mg PO QAM Discharge Medication List Atorvastatin [Lipitor] 80 mg PO HS #30 tab 10/27/17 [Rx] Clopidogrel [Plavix] 75 mg PO QAM 12/01/17 [History] Acetaminophen Tab [Tylenol] 650 mg PO Q4HR PRN tab 12/16/17 [Rx] Ascorbic Acid [Vitamin C] 500 mg PO BID-W/MEALS #60 tab 12/16/17 [Rx] Aspirin 325 mg PO DAILY #30 tab 12/16/17 [Rx] Ferrous Sulfate [Iron (65 MG Elemental)] 325 mg PO BID-W/MEALS #60 tab 12/16/17 [Rx] Metoprolol Tartrate [Lopressor] 25 mg PO TID #90 tab 12/16/17 [Rx] Follow up Appointment(s)/Referral(s): Adelaida Armenta NPC [Nurse Practitioner] - 12/20/17 2:00 pm Harjit Parker MD [STAFF PHYSICIAN] - 2 Weeks [facility], [NON-STAFF] - Aditya Brown MD [STAFF PHYSICIAN] - 4 Weeks Abrahan Topete DO [Doctor of Osteopathic Medicine] - 2 Weeks Lobo Mchugh MD [STAFF PHYSICIAN] - 2 Weeks Ambulatory/Diagnostic Orders: Complete Blood Count w/diff [LAB.AMB] Time Frame: 3 Days, Location: None Selected Comprehensive Metabolic Panel [LAB.AMB] Time Frame: 3 Days, Location: None Selected Patient Instructions/Handouts: Sternal Precautions (GEN), Coronary Artery Bypass Graft (DC) Activity/Diet/Wound Care/Special Instructions: DISCHARGE INSTRUCTIONS: 1. No driving for 4 weeks, or until physician gives their ok. 2. The patient should sleep in their own bed, no medical bed needed. 3. Stairs are not an issue. If the bedroom is upstairs, it is advised that the patient go up at night and down in the morning for the first week. Go slowly, using handrail and take 1 step at a time. 4. JACY hose are to be worn for 30 days or until physician discontinues. 5. Heart hugger is to be worn 100% of the time until physician discontinues.( except when showering) 6. No lifting, pushing, or pulling more than 10 pounds for 12 weeks. The physician will advise of any restriction changes. 7. The patient is expected to continue the prescribed walking program. 8. Continue pain control per as needed orders. 9. Continue with incentive spirometry and splinting/heart hugger until otherwise directed by the physician. 10. Must shower daily using liquid antibacterial soap and a separate white washcloth for each individual incision. 11. Routine sternal incision care. No powders, lotions, ointments on incisions. 12. Please call surgeon/DISEASE EDUCATION SPECIALIST for temp greater than 101 F or purulent drainage from incisions. 13. All prescriptions given by surgeon for 30 days. Refills need to be filled through external grinder tender/primary care physician. 14. A Red armband has been placed on the patient. It should be worn for 30 days post surgery and will be removed by the cardiac surgeons. If an ER visit is necessary, please make sure the number on the Red armband is called. HOME HEALTH SERVICES TO PROVIDE: RN SKILLED HOME CARE SERVICES FOR POST-OP SURGICAL PATIENTS WITH THE FOLLOWING: Coronary Artery Bypass Surgery (CABG), Mitral Valve Replacement/ Repair ( MVR), Aortic Valve Replacement/Repair (AVR) RN TO CONTINUE EDUCATION FROM ``ROAD TO A HEALTH HEART PATIENT EDUCATION MANUAL (GIVEN TO PATIENT IN THE HOSPITAL) MEDICATION RECONCILIATION WITH EDUCATION NEEDED ON FIRST HOME VISIT EMPHASIZE IMPORTANCE OF WEARING BREAST SUPPORT/HEART HUGGER ENCOURAGE USE OF INCENTIVE SPIROMETER 10 X EVERY HOUR WHILE AWAKE ENCOURAGE UTILIZATION OF LOWER EXTREMITY COMPRESSION STOCKINGS/JACY HOSE and ELEVATE LEGS ABOVE LEVEL OF HEART WHILE AT REST. ENCOURAGE AMBULATION 3-5x/day INCREASING TOLERATES, WHILE AVOID EXTREMES IN TEMPERATURE FREQUENCY: RN TO OPEN THE PATIENT WITHIN 24 HOURS OF DISCHARGE FROM THE HOSPITAL WITH TELEHEALTH INSTALLED AT [facility] [place], RN TO VISIT 2-3 X A WEEK FOR 4 WEEKS ESTABLISHED BY PATIENT NEEDS. REMOVAL OF SUTURES: NURSING SERVICES TO REMOVE SUTURES TWO WEEKS POST SURGICAL DATE, (12/26/17). If any questions regarding suture removal please call the office at [phone]. LABORATORY: CBC, CMP TO BE DRAWN ON THE THIRD DAY HOME, 12/19/17, (RAN STAT) FAX RESULTS TO [phone]. TELEHEALTH PARAMETERS: WEIGHT: NOTIFY MD OF WEIGHT GAIN OF 2 LBS IN 24 HOURS OR 5 LBS IN ONE WEEK HR: NOTIFY MD OF HR <55 BPM OR HR>100 BPM BP: NOTIFY MD IF BP <90/55 OR BP>140/100 O2 SAT: NOTIFY MD IF PO2<93% ON ROOM AIR SEND TELEHEALTH REPORT TO LOCK AND DAM REPAIRER AND CARDIOVASCULAR SURGEON THE FIRST WEEK OF CARE AND THEN BI-WEEKLY. PLEASE ADDITIONALLY COMMUNICATE ANY ABNORMALS AND NEW FINDINGS TO THE SURGEONS OFFICE. Discharge Disposition: HOME WITH HOME HEALTH SERVICES
--- NOTE | 2017-12-16 14:05 | P.PN ---
Subjective Progress Note Date: 12/16/17 Patient is a 47-year-old male with a past medical history of ST segment elevated myocardial infarction with stent to the RCA 10/25/2017 with known multivessel coronary artery disease, ischemic cardiomyopathy with ejection fraction 40-45%, hypertension, and dyslipidemia who is status post coronary bypass grafting surgery. Patient underwent VALENTINE to the LAD, saphenous vein graft to the obtuse marginal, saphenous vein graft to the diuretic. He was seen and examined this morning, overall doing quite well. Working on his incentive spirometry. Pain under better control. Anticipating possible discharge home tomorrow. Blood pressure 98/56, heart rate in the 80s, 96% on room air. 12/16/2017 Patient seen and examined this morning, up ambulating in the hallway without any difficulty. Hemodynamically stable. Anticipating discharge home today. Objective - Vital Signs Vital signs: Vital Signs Temp 96.4 F L 12/16/17 12:00 Pulse 100 12/16/17 12:00 Resp 18 12/16/17 12:00 BP 113/59 12/16/17 12:00 Pulse Ox 99 12/16/17 12:00 Intake & Output 12/15/17 12/16/17 12/16/17 18:59 06:59 18:59 Intake Total 1320 360 Output Total 310 Balance 1010 360 Weight 68.9 kg Intake: Oral 1320 360 Output: Chest Tube Drainage [address] 60 Urine 250 Other: Voiding Method Urinal Urinal Urinal # Voids 1 2 ABP, PAP, CO, CI - Last Documented Arterial Blood Pressure 117/43 Pulmonary Artery Pressure 48/25 Cardiac Output 5.6 Cardiac Index 3.2 - Exam PHYSICAL EXAMINATION: GENERAL: 47-year-old gentleman in no acute distress at the time of my examination HEENT: Head is atraumatic, normocephalic. Pupils equal, round. Sclera anicteric. Conjunctiva are clear. Mucous membranes of the mouth are moist. Neck is supple. There is no elevated jugular venous pressure. No carotid bruit is heard. HEART EXAMINATION: Heart S1, S2 normal. No murmur or gallop heard. CHEST EXAMINATION: Lungs are clear with mild diminished air entry to the bases. ABDOMEN: Soft, nontender. Bowel sounds are heard. No organomegaly noted. EXTREMITIES: 2+ peripheral pulses with no evidence of peripheral edema and no calf tenderness noted. NEUROLOGIC patient is awake, alert and oriented X3 . - Labs CBC & Chem 7: 12/16/17 05:38 12/16/17 05:38 Labs: Abnormal Lab Results - Last 24 Hours (Table) 12/15/17 12/15/17 12/16/17 Range/Units 17:01 20:29 02:11 RBC (4.30-5.90) m/uL Hgb (13.0-17.5) gm/dL Hct (39.0-53.0) % RDW (11.5-15.5) % Glucose (74-99) mg/dL POC Glucose (mg/dL) 147 H 122 H 100 H (75-99) mg/dL Calcium (8.4-10.2) mg/dL Total Protein (6.3-8.2) g/dL Albumin (3.5-5.0) g/dL 12/16/17 12/16/17 12/16/17 Range/Units 05:38 05:38 05:58 RBC 2.32 L (4.30-5.90) m/uL Hgb 7.1 L (13.0-17.5) gm/dL Hct 21.1 L (39.0-53.0) % RDW 15.6 H (11.5-15.5) % Glucose 110 H (74-99) mg/dL POC Glucose (mg/dL) 109 H (75-99) mg/dL Calcium 8.3 L (8.4-10.2) mg/dL Total Protein 4.9 L (6.3-8.2) g/dL Albumin 2.9 L (3.5-5.0) g/dL 12/16/17 Range/Units 12:19 RBC (4.30-5.90) m/uL Hgb (13.0-17.5) gm/dL Hct (39.0-53.0) % RDW (11.5-15.5) % Glucose (74-99) mg/dL POC Glucose (mg/dL) 123 H (75-99) mg/dL Calcium (8.4-10.2) mg/dL Total Protein (6.3-8.2) g/dL Albumin (3.5-5.0) g/dL Assessment and Plan Plan: Assessment and plan #1 status post coronary artery bypass grafting surgery #2 ischemic cardiomyopathy, ejection fraction 40-45%. #3 hypertension #4 hyperlipidemia Plan Patient is going to be discharged home today. We will make sure he has a follow -up appointment in the office post discharge. DNP note has been reviewed, I agree with a documented findings and plan of care. Patient was seen and examined.
[2017-12-16] MEDS ORDERED: METOPROLOL TARTRATE 25 MG TAB PO SCH (16:00)
[2017-12-16] MEDS ORDERED: FERROUS SULFATE 325 MG TAB PO SCH (17:30)
== END 2017-12-16 14:30 | disposition home health service (06) | DRG 235 ==
LOC: 2ORMAIN 05:32 → 6ICU 15:14 → 6SEL 12-14 13:24
PROVIDERS: ADMIT Surgery; ATTEND Surgery
PROC: 06BQ4ZZ Excision of Left Saphenous Vein, Percutaneous Endoscopic Approach (ICD-10-PCS; 2017-12-12)
PROC: 5A1221Z Performance of Cardiac Output, Continuous (ICD-10-PCS; 2017-12-12)
PROC: B24BZZ4 Ultrasonography of Heart with Aorta, Transesophageal (ICD-10-PCS; 2017-12-12)
PROC: 021109W Bypass Coronary Artery, Two Arteries from Aorta with Autologous Venous Tissue, Open Approach (ICD-10-PCS; principal; 2017-12-12 08:00)
PROC: 02100Z9 Bypass Coronary Artery, One Artery from Left Internal Mammary, Open Approach (ICD-10-PCS; 2017-12-12 08:00)
DX: I25.10 Atherosclerotic heart disease of native coronary artery without angina pectoris (principal); I21.19 ST elevation (STEMI) myocardial infarction involving other coronary artery of inferior wall; D62 Acute posthemorrhagic anemia; E78.5 Hyperlipidemia, unspecified; I25.5 Ischemic cardiomyopathy; I10 Essential (primary) hypertension; D69.6 Thrombocytopenia, unspecified; F17.201 Nicotine dependence, unspecified, in remission; I25.82 Chronic total occlusion of coronary artery; Z95.5 Presence of coronary angioplasty implant and graft; Z87.891 Personal history of nicotine dependence; Z82.49 Family history of ischemic heart disease and other diseases of the circulatory system; Z79.82 Long term (current) use of aspirin; Z79.899 Other long term (current) drug therapy; Z82.5 Family history of asthma and other chronic lower respiratory diseases; Z80.1 Family history of malignant neoplasm of trachea, bronchus and lung
CPT/HCPCS: 71045; 71046; 80053; 82330; 82805; 83036; 83735; 84100; 85025; 85520; 85610; 85730; 86850; 86891; 86900; 86901; 86920; 94002; 94640; 94760

== ENCOUNTER → 2018-01-12 | Outpatient (CLI) | payer MEDICAID ==
--- NOTE | 2018-01-12 16:15 | XR ---
EXAMINATION TYPE: XR chest 2V DATE OF EXAM: 01/12/2018 COMPARISON: 12/16/2017 and 12/05/2017 HISTORY: 47-year-old male ASHD, follow-up open heart surgery one month ago TECHNIQUE: Frontal and lateral views FINDINGS: The cardiomediastinal silhouette, aorta, and pulmonary vasculature are within normal limits. Stable s cattered calcified granulomas. Lungs and pleural spaces are clear. Median sternotomy wires are presen t with post-CABG clips. Accentuated lower thoracic kyphosis. IMPRESSION: No acute cardiopulmonary process. Prior granulomatous disease.
== END | disposition home or self-care (01) ==
LOC: RADXRMAIN 13:44
PROVIDERS: ATTEND Internal Medicine Critical Care Medicine
DX: J84.10 Pulmonary fibrosis, unspecified (principal); I25.10 Atherosclerotic heart disease of native coronary artery without angina pectoris
CPT/HCPCS: 71046

== ENCOUNTER 2021-02-03 07:08 | Day surgery (SDC) | payer MEDICAID ==
[2021-02-01 15:26] VITALS: BMI 24.0
[~2021-02-03 07:08] MED LIST changes: -ALBUMIN HUMAN 25% 50 ML IV ONE; -ALBUMIN HUMAN 5% 500 ML IVPB ONE; -ASPIRIN 325 MG TAB PO ONE; -ATORVASTATIN 10 MG TAB PO ONE; -CALCIUM CHLORIDE 100 MG/ML 10 ML SYRINGE IV ONE; -CHLORHEXIDINE GLUCONATE 15 ML CUP MUCOUS MEM ONE; -CLEVIDIPINE BUTYRATE 25 MG in EMPTY BAG 1 BAG IV ONE; -DEXTROSE 5% IN WATER 1,000 ML with POTASSIUM CHLORIDE 110 MEQ, MAGNESIUM SULFATE 16 MEQ... IV ONE; -DEXTROSE 5% IN WATER 1,000 ML with POTASSIUM CHLORIDE 25 MEQ, SODIUM CHLORIDE 2.5MEQ/ML... IRRIGATION ONE; -HEPARIN SODIUM 1,000 UN/ML (10ML VL) IV ONE; -HEPARIN SODIUM,PORCINE 5,000 UNIT in SODIUM CHLORIDE 0.9% 500 ML IV ONE; -INSULIN REGULAR 100 UNIT in SODIUM CHLORIDE 0.9% 100 ML IV ONE; -MAGNESIUM SULFATE MG 500 MG/ML VIAL IV ONE; -MANNITOL 25% 12.5 GM/50 ML VIAL IV ONE; -METOPROLOL TARTRATE 12.5 MG TAB PO ONE; +MOXIFLOXACIN HCL 0.5% DROPS 3 ML BTL OP PRN; -NITROGLYCERIN-D5W PMX 25 MG/250 ML BTL IV ONE; -NITROGLYCERIN-D5W PMX 50 MG in DEXTROSE/WATER 1 250ML.BAG IV ONE; -NOREPINEPHRIN 4 MG-0.9% NS PMX 4 MG/250 ML ML IV ONE; -PAPAVERINE 360 MG in SODIUM CHLORIDE 0.9% 90 ML IV ONE; -PHENYLEPHRINE 40 MG in SODIUM CHLORIDE 0.9% 250 ML IV ONE; -PHENYLEPHRINE-0.9% NACL SYG 1 MG/10 ML SYRINGE IV ONE; -PROPOFOL 1,000 MG/100 ML VIAL IV ONE; -PROTAMINE SULFATE 10 MG/ML 25 ML VIAL IV ONE; -PROTAMINE SULFATE 250 MG in EMPTY BAG 1 BAG IV ONE; -SODIUM BICARB 8.4% 50 ML SYR (1 MEQ/ML) IV ONE; -SODIUM CHLORIDE 0.9% 1,000 ML IV ONE; +TETRACAINE 0.5% OPHTH (PF) DROPS 4 ML BTL OP PRN; +TIMOLOL 0.5% OPHTH DROPS 5 ML BTL OP PRN; -TRANEXAMIC ACID 2,000 MG in SODIUM CHLORIDE 0.9% 180 ML IV ONE; -ceFAZolin 2,000 MG in SODIUM CHLORIDE 0.9% 30 ML IVPB ONE
[2021-02-03] MEDS: CYCLOPENTOLATE 1% OPHTH SOLN 2 ML BTL OP PRN ×3 (08:10→08:22)
[2021-02-03] MEDS: PHENYLEPHRINE 2.5% OPHTH DRP 2ML OP PRN ×3 (08:13→08:25)
[2021-02-03 08:16] VITALS: RESP 16; TEMP 97.8
[2021-02-03] MEDS: LACTATED RINGERS 1,000 ML IV SCH ×2 (08:24→09:04)
[2021-02-03] MEDS ORDERED: HYALURONATE SODIUM INTRAOCULAR 1 EACH SYRINGE (12MG/ML) INTRAOCULA ONE (08:59)
[2021-02-03] MEDS ORDERED: LIDOCAINE 1% (PF) 10MG/ML VIAL MISCELLANE ONE (09:00)
[2021-02-03] MEDS ORDERED: BALANCED SALT IRRIG SOLN COMB2 15 ML IRRIG.SOLN INTRAOCULA ONE (09:00)
[2021-02-03] MEDS ORDERED: MIDAZOLAM 2 MG/2 ML VIAL ONE (09:01)
[2021-02-03] MEDS ORDERED: fentaNYL (PF) 50 MCG/ML 2 ML AMP ONE (09:01)
[2021-02-03] MEDS ORDERED: EPINEPHrine (PF) 0.3 ML in BALANCED SALT IRRIG SOLN COMB2 500 ML IRRIGATION ONE (09:05)
--- NOTE | 2021-02-03 09:37 | P.OP ---
Date of Procedure: 02/03/21 Preoperative Diagnosis: NS & PSC Postoperative Diagnosis: same Procedure(s) Performed: PIOL, OD Implants: MX60E 19.50 Anesthesia: MAC Surgeon: Caleb Everett Pathology: none sent Condition: stable Disposition: same day Indications for Procedure: blurry vision Operative Findings: no complications
[2021-02-03 10:00] VITALS: BP 136/91; PULSE 76
--- NOTE | 2021-02-03 20:28 | OP ---
OPERATIVE REPORT DATE OF SURGERY: February 03, 2021 PROCEDURE PERFORMED: Phacoemulsification of cataract and intraocular lens implant of the right eye. PREOPERATIVE DIAGNOSES: Nuclear sclerosis and posterior subcapsular cataract. PREOPERATIVE DIAGNOSES: Nuclear sclerosis and posterior subcapsular cataract SURGEON: Dr. Caleb Everett OPERATION: Clear cornea phacoemulsification of cataract OD/right eye. ESTIMATED BLOOD LOSS: Zero. SPECIMEN TAKEN: None. NARRATIVE: After obtaining the appropriate consent, the patient was brought to the Operating Room where the patient was placed under cardiac monitoring and prepped and draped in the usual sterile manner. At the 11 o'clock position a 15 degree super sharp blade was used to create a paracentesis followed by instillation of 1% Xylocaine MPF 50:50 mix with BSS into the anterior chamber. This was followed by Amvisc to stabilize the anterior chamber. At the 9 o'clock position a self-sealing corneal flap incision was created using 2.8 mm cecilio keratome. A cystotome was used to initiate a continuous tear capsulorrhexis which was completed with the Utrata forceps. A Binkhorst cannula was used to hydrodissect the lens nucleus followed by hydrodelineation. Phacoemulsification of the lens was performed utilizing phacochop in 3.87 seconds at 5.43% power. The remaining cortical material was removed using the irrigation aspiration mode followed by additional 1% Xylocaine MPF into the anterior chamber followed by viscoelastic to stabilize the capsular bag. A [employer] MX 60E 19.5 diopter posterior chamber lens was placed into the capsular bag without difficulty. The remaining viscoelastic material was removed from the anterior chamber with the irrigation/aspiration. Balanced salt solution was used to normalize the intraocular pressure. The incision was checked for watertight integrity. The patient then received two drops of 0.5% timolol followed by two drops Vigamox, was lightly patched and shielded in the usual manner. There were no complications from the procedure. The patient tolerated the procedure well and was returned to recovery in good condition. MMODL / IJN: [id number] /
== END 2021-02-03 10:13 | disposition home or self-care (01) ==
LOC: OR 07:08
PROVIDERS: ATTEND Ophthalmology
DX: H25.13 Age-related nuclear cataract, bilateral (principal); H25.043 Posterior subcapsular polar age-related cataract, bilateral; H52.13 Myopia, bilateral; H52.4 Presbyopia; I10 Essential (primary) hypertension; Z95.5 Presence of coronary angioplasty implant and graft; Z95.1 Presence of aortocoronary bypass graft; I25.10 Atherosclerotic heart disease of native coronary artery without angina pectoris; I25.2 Old myocardial infarction; E78.5 Hyperlipidemia, unspecified; Z79.02 Long term (current) use of antithrombotics/antiplatelets; Z79.82 Long term (current) use of aspirin; Z79.899 Other long term (current) drug therapy
CPT/HCPCS: 66984; C1780; J2250; J0171; J3010; J2001

== ENCOUNTER 2021-02-24 08:20 | Day surgery (SDC) | payer MEDICAID ==
[2021-02-23 10:32] VITALS: BMI 24.6
[~2021-02-24 08:20] MED LIST changes: +CYCLOPENTOLATE 1% OPHTH SOLN 2 ML BTL OP PRN; +PHENYLEPHRINE 2.5% OPHTH DRP 2ML OP PRN
[2021-02-24] MEDS ORDERED: LACTATED RINGERS 1,000 ML IV SCH (08:36)
[2021-02-24] MEDS ORDERED: LIDOCAINE 1% (10MG/ML) FOR IV START INTRADERMA PRN (08:36)
[2021-02-24 08:49] VITALS: TEMP 96.8
[2021-02-24] MEDS ORDERED: fentaNYL (PF) 50 MCG/ML 2 ML AMP ONE (09:40)
[2021-02-24] MEDS ORDERED: MIDAZOLAM 2 MG/2 ML VIAL ONE (09:40)
[2021-02-24] MEDS ORDERED: LIDOCAINE 1% (PF) 10MG/ML VIAL MISCELLANE ONE (09:57)
[2021-02-24] MEDS ORDERED: BALANCED SALT IRRIG SOLN COMB2 15 ML IRRIG.SOLN IRRIGATION ONE (09:57)
[2021-02-24] MEDS ORDERED: HYALURONATE SODIUM INTRAOCULAR 1 EACH SYRINGE (12MG/ML) INTRAOCULA ONE (09:57)
[2021-02-24] MEDS ORDERED: EPINEPHrine (PF) 0.3 ML in BALANCED SALT IRRIG SOLN COMB2 500 ML IRRIGATION ONE (09:58)
--- NOTE | 2021-02-24 10:11 | P.OP ---
Date of Procedure: 02/24/21 Preoperative Diagnosis: NS & CS Postoperative Diagnosis: same Procedure(s) Performed: PIOL, OS Implants: MX60E 20.00 Anesthesia: MAC Surgeon: Caleb Everett Pathology: none sent Condition: stable Disposition: same day Indications for Procedure: blurry vision Operative Findings: no complications
[2021-02-24 10:48] VITALS: BP 141/70; PULSE 76; RESP 18
--- NOTE | 2021-02-25 11:10 | OP ---
OPERATIVE REPORT DATE OF SERVICE: February 24, 2021 PROCEDURES: Phacoemulsification cataract and intraocular lens implantation, left eye. PREOPERATIVE DIAGNOSIS: Nuclear sclerosis and posterior subcapsular cataract. POSTOPERATIVE DIAGNOSIS: Nuclear sclerosis and posterior subcapsular cataract. OPERATION: Clear cornea phacoemulsification of cataract left/OS eye. SURGEON: Dr. Caleb Everett. ESTIMATED BLOOD LOSS: Zero. SPECIMEN TAKEN: None. NARRATIVE: After obtaining the appropriate consent, the patient was brought to the Operating Room where the patient was placed under cardiac monitoring and prepped and draped in the usual sterile manner. At the 5 o'clock position a 15 degree super sharp blade was used to create a paracentesis followed by instillation of 1% Xylocaine MPF 50:50 mix with BSS into the anterior chamber. This was followed by Amvisc to stabilize the anterior chamber. At the 3 o'clock position a self-sealing corneal flap incision was created using 2.8 mm cecilio keratome. A cystotome was used to initiate a continuous tear capsulorrhexis which was completed with the Utrata forceps. A Binkhorst cannula was used to hydrodissect the lens nucleus followed by hydrodelineation. Phacoemulsification of the lens was performed utilizing phacochop in 0.83 Seconds at 2% power. The remaining cortical material was removed using the irrigation aspiration mode followed by additional 1% Xylocaine MPF into the anterior chamber followed by viscoelastic to stabilize the capsular bag. A [employer] MX 60E 20.0 diopter posterior chamber lens was placed into the capsular bag without difficulty. The remaining viscoelastic material was removed from the anterior chamber with the irrigation/aspiration. Balanced salt solution was used to normalize the intraocular pressure. The incision was checked for watertight integrity. The patient then received two drops of 0.5% timolol followed by two drops Vigamox, was lightly patched and shielded in the usual manner. There were no complications from the procedure. The patient tolerated the procedure well and was returned to recovery in good condition. MMODL / IJN: [id number] /
== END 2021-02-24 10:50 | disposition home or self-care (01) ==
LOC: OR 08:20
PROVIDERS: ATTEND Ophthalmology
DX: H25.12 Age-related nuclear cataract, left eye (principal); H25.042 Posterior subcapsular polar age-related cataract, left eye; I11.9 Hypertensive heart disease without heart failure; H52.13 Myopia, bilateral; H52.4 Presbyopia; Z96.1 Presence of intraocular lens; Z80.9 Family history of malignant neoplasm, unspecified; Z83.518 Family history of other specified eye disorder; Z82.49 Family history of ischemic heart disease and other diseases of the circulatory system; Z97.3 Presence of spectacles and contact lenses; Z95.5 Presence of coronary angioplasty implant and graft; Z95.1 Presence of aortocoronary bypass graft; Z79.02 Long term (current) use of antithrombotics/antiplatelets; Z79.82 Long term (current) use of aspirin; Z79.52 Long term (current) use of systemic steroids; Z79.899 Other long term (current) drug therapy
CPT/HCPCS: 66984; C1780; J2250; J0171; J3010; J2001